=== PATIENT | female | born 1940 | race Caucasian/White ===

== ENCOUNTER 2024-04-19 14:54 | Observation (INO) | payer OTHER, SELFPAY ==
--- NOTE | ~2024-04-19 | XR_ITS ---
EXAMINATION: XR chest 1V portable Exam Date/Time: 04/19/2024 17:45 CDT HISTORY: weakness; eval for obvious PNA Comparison: 04/17/2008, 07/21/2007, 10/01/2006. RESULT: Lines, tubes, and devices: Suture material over the GE junction. Lungs and pleura: Low lung volumes. Skin fold projecting over the peripheral right lung. Right hemid iaphragm elevation. Lungs otherwise clear. Cardiomediastinal silhouette: Stable. Other: No acute upper abdominal finding. Right humeral head deformity, new since the prior studies. IMPRESSION: No acute cardiopulmonary process. Right humeral head deformity, possible acute versus chronic fractur e, correlate for pain/tenderness. Reviewed, dictated and finalized at location K. IMPRESSION: No acute cardiopulmonary process. Right humeral head deformity, possible acute versus chronic fracture, correlate for pain/tenderness.
--- NOTE | ~2024-04-19 | CT_ITS ---
EXAMINATION: CT brain wo con DATE: 04/19/2024 17:23 INDICATION: ROCKWELL and nausea . TECHNIQUE: Computed tomography (CT) of the head was performed without intravenous contrast. The mA wa s adjusted according to patient size. Iterative reconstruction technique was employed. The dose-lengt h product was 605.33 mGy-cm. COMPARISON: None. FINDINGS: No acute intracranial hemorrhage or extra-axial fluid collection. No hydrocephalus, mass, or herniation. No acute ischemic infarct. Unremarkable dural venous sinus attenuation. No acute osseous abnormality. The aerated spaces are clear. Mild atrophy and chronic white matter change. Atherosclerotic intracranial calcification. Bilateral l ens replacements. IMPRESSION: No acute intracranial process. Reviewed, dictated and finalized at location K.
[2024-04-19 14:55] VITALS: BP 140/86; PULSE 75; RESP 17; TEMP 36.6; O2SAT 99
--- NOTE | 2024-04-19 15:57 | ED.HA ---
HPI - Headache General Chief Complaint: Headache Stated Complaint: Nausea/ROCKWELL Time Seen by Provider: 04/19/24 15:34 Source: patient and family () Limitations: no limitations History of Present Illness HPI Narrative: Patient presents with complaint of a headache for >1week, at least since last Thursday but believed to be longer than that. Patient is also complaining of nausea and decreased p.o. intake. concerned as she has has not been eating and is quite weak. She normally walks with a cane but less ambulatory lately. Her headache is described as bilateral primarily frontal. She believes it is related to her sinuses as she has been having both rhinorrhea and nasal congestion and post-nasal drip. She does frequently get headaches at baseline and sees her primary care physician for this, has not seen a neurologist. She does have some associated photophobia. No trauma and not on anticoagulation other than 81 mg aspirin. Patient was recently being treated for a left leg cellulitis per . She states her headache pain 15 out of 10 in severity. She has been trialing Advil with no change. She presented to [facility] for her headache a few days and was given an IV; No imaging and not discharged on meds. Related Data Home Medications Medication Instructions Recorded Confirmed azelastine 137 mcg (0.1 %) nasal intranasal 04/19/24 spray cephalexin 500 mg capsule mg 04/19/24 doxycycline hyclate 100 mg capsule mg 04/19/24 ipratropium bromide 21 mcg (0.03 intranasal 04/19/24 %) nasal spray memantine 10 mg tablet mg 04/19/24 montelukast 10 mg tablet mg 04/19/24 omeprazole 20 mg capsule,delayed mg 04/19/24 release tramadol 50 mg tablet mg 04/19/24 trazodone 50 mg tablet mg 04/19/24 Allergies Allergy/AdvReac Type Severity Reaction Status Date / Time codeine Allergy Severe CHEST Verified 04/19/24 15:03 PAIN;DIFFICULTY BREATHING morphine Allergy Severe CHEST Verified 04/19/24 15:03 PAIN;DIFFICULTY BREATHING PMFSH Past Medical History Medical History (Updated 04/20/24 @ 00:00 by Mahsa Ashley MD) Allergic rhinitis Alzheimer dementia Fracture of humeral head, right, closed GERD (gastroesophageal reflux disease) History of fracture of right hip s/p surgical repair History of frequent headaches Insomnia Left leg cellulitis March 2024; s/p antibiotic treatment Myocardial infarction (~1979) Without intervention Osteoporosis Surgical History Surgical History (Updated 04/19/24 @ 22:43 by Manuela Meehan DO) History of appendectomy History of carpal tunnel release History of gastric bypass History of Bella fundoplication History of total abdominal hysterectomy and bilateral salpingo-oophorectomy Hx of cholecystectomy (~1964) Social History Social History (Updated 04/19/24 @ 19:30 by Mahsa Ashley MD) Alcohol intake: never Substance use: never Substance use type: does not use Do You Feel Safe in your Home?: Yes Lack of Transportation: No Lack of Food: Never True Current Housing: I Have Housing Concerned About Future Housing: No Difficulty Paying Gas/Electric Bills: No Difficulty Paying for Meds: No Currently Unemployed: No Education: High School Diploma/GED Difficulty w/ Childcare or Family Care: No Living arrangements: with family Additional living arrangements comments: Spiritual care concerns: No Exam Narrative: GENERAL: Well-appearing, well-nourished, and in no acute distress. HEAD: Normocephalic, atraumatic. EYES: Non injected, non icteric ENT: Nares clear, no rhinorrhea or epistaxis. NECK: Supple. CHEST: Speaking in full sentences. No respiratory distress. HEART: Regular rate and rhythm. ABDOMEN: Soft, nondistended. EXTREMITIES: Ecchymosis at upper third of right upper extremity. No tenderness to palpation of the humeral head. Demonstrates movement in all extremities. SKIN: Warm, dry, no ra
[2024-04-19] MEDS: KETOROLAC 15 MG/ML VIAL (*BKC) IV PUSH ×2 (16:20→18:10)
[2024-04-19] MEDS: SODIUM CHLORIDE 0.9% IV 1,000 ML 999 ML IV CONT (16:20)
[2024-04-19] MEDS: PROCHLORPERAZINE EDISYLATE 10 MG/2 ML VIAL IV PUSH (16:20)
[2024-04-19 16:58] LABS: Influenza A QL RT-PCR Negative (Negative); Influenza B QL RT-PCR Negative (Negative); RSV RNA, RT-PCR Negative (Negative); SARS-CoV-2 RNA PCR Negative (Negative)
[2024-04-19] MEDS: ACETAMINOPHEN 500 MG TABLET 1000 MG PO (18:04)
[2024-04-19] MEDS: MAGNESIUM SULF 1 GM/D5W 100 ML 1 GM/100 ML BAG IVPB (18:05)
[2024-04-19] MEDS: ONDANSETRON INJ 4 MG/2 ML VIAL IV PUSH (18:06)
[2024-04-19] MEDS: AMOXICILLIN/CLAVULANATE K 500-125 MG TAB 1 TABLET PO ×2 (18:10→23:30)
--- NOTE | 2024-04-19 18:30 | PC.NURSE ---
pt's voiced concerns to the RN about having a hard time caring for pt at home. pt states he would like to place her in some type of assisted living/nursing facility. called care coordination. states she will be down to speak with pt. ED provider aware.
[2024-04-19 18:36] VITALS: BP 127/69; PULSE 73; RESP 12; O2SAT 100
[2024-04-19 18:52] LABS: Basophils Percent Auto 0.9 % (0.2-1.2); Eosinophils Absolute Auto 0.1 K/mm3 (0-0.3); Eosinophils Percent Auto 1.1 % (0-4.4); Hematocrit 41.5 % (37.0-47.0); Hemoglobin 13.6 g/dL (12.0-15.0); Immature Granulocyte Absolute 0.01 K/mm3 (0.00-0.031); Immature Granulocyte Percent A 0.2 % (0-0.5); Lymphocytes Absolute Auto 2.03 K/mm3 (0.9-3.2); Lymphocytes Percent Auto 45.2 % (18.3-44.2); Mean Corpuscular HGB Conc 32.8 g/dl (32-36); Mean Corpuscular Hemoglobin 28.6 pg (26-34); Mean Corpuscular Volume 87.4 fl (80-100); Mean Platelet Volume 8.5 fl (7.4-10.4); Monocytes Absolute Auto 0.2 K/mm3 (0.1-0.6); Monocytes Percent Auto 4.7 % (2.6-8.5); Neutrophils Absolute Auto 2.2 K/mm3 (1.3-6.7); Neutrophils Percent Auto 47.9 % (45.5-73.1); Platelet Count Result 233 k/mm3 (150-375); Red Blood Count 4.75 M/mm3 (4.2-5.4); White Blood Count 4.5 K/mm3 (4.5-10.0)
[2024-04-19 18:53] LABS: Lactic Acid Reflex 0.8 mmol/L (0.7-2.0)
[2024-04-19 19:01] LABS: Alanine Aminotransferase 37 U/L (6-35); Albumin Level 3.2 g/dL (3.5-5.1); Alkaline Phosphatase 113 U/L (38-126); Anion Gap 8 mmol/L (4-12); Aspartate Amino Transferase 40 U/L (14-36); Bilirubin,Total 1.2 mg/dL (0.2-1.3); Blood Urea Nitrogen 14 mg/dL (7-17); Calcium 8.3 mg/dL (8.4-10.2); Carbon Dioxide 23 mmol/L (22-30); Chloride 103 mmol/L (98-107); Estimated CRCL calculation 35 ml/min; Estimated Glomerular Filt Rate 60; Glucose 81 mg/dL (65-110); Potassium 3.4 mmol/L (3.4-5.0); Sodium 134 mmol/L (137-145)
--- NOTE | 2024-04-19 19:01 | PCCCNOTE ---
CC called to the ED to speak with regarding potential placement. Pt has Alzheimer and he is having a difficult time getting her to eat and taking care of her. I gave him a list of SNF facilities for potential therapy to help build her strength. Pt was still being evaluated in the ED, unsure if pt will be admitted or discharged at this time, awaiting test results. Pt will be looking for [facility] eventually, but has to get finances in order first.
[2024-04-19 19:06] LABS: Appearance Urine Cloudy (Clear); Bacteria Urine None Seen /hpf; Bilirubin Urine Negative (Negative); Blood Urine Negative (Negative); Budding Yeast Urine Present /hpf; Color Urine Yellow (Yellow); Glucose Urine UA Negative (Negative); Ketones Urine 1+ mg/dL (Negative); Leukocyte Esterase Ur 2+ LEU/UL (Negative); Need Manual Microscopic Reviewed; Nitrate Urine Negative (Negative); Protein Urine Negative (Negative); RBC Urine 0-2 /hpf (0-2); Specific Grav Ur 1.015 (1.001-1.035); Squamous Epithelial Cell Urine Moderate /hpf (Few); WBC Urine >100 /hpf (0-3); pH Urine 6.5 (5.0-9.0)
[2024-04-19 19:07] LABS: Add Urine Microscopic? YES
[2024-04-19 21:20] VITALS: O2SAT 100
[2024-04-19 22:06] VITALS: BP 152/92; PULSE 73; RESP 16; TEMP 36.3; O2SAT 100
--- NOTE | 2024-04-19 22:30 | PM.IMHP ---
H&P: HPI History of Present Illness Date/Time: 04/19/24 22:30 Chief Complaint: Headache, nausea Narrative: 83-year-old female with a past medical history of dementia, GERD, allergic rhinitis and frequent headaches who presented to the ER via EMS from home due to headache and nausea for 1 week. The patient reports that she just does not feel good. She did not acknowledge any specific complaints until I went through point by point review of systems. With direct questioning she does state that she has a headache. She states that she has frequent headaches. She grimaces when she talks about the headache and states that it feels pretty bad but cannot give me any other details. She has been having nasal congestion and rhinorrhea. She denies any sore throat. She has been having poor appetite. She denied any abdominal pain but then on exam patient did report some tenderness to palpation of the lower quadrants. She reports that her mouth feels dry. Patient is not a reliable historian and is only alert oriented to self. She thought that she was at a hospital in [place]. She did not even want to make a guess as to the month or year. And she would not guess as to how old she is but could tell me her date. Her was concerned that she has not been eating has become weaker. She walks with a cane but has been having more difficulty. In the ER patient's required significant assistance to stand up from the chair. In fact, the patient has a gait belt on her bedside table that I suspect came from home use. The patient was evaluated in the [place] ER twice recently for left leg cellulitis. Patient is not having any complaints are legs issues at this time. The patient was treated with 7 days of Keflex starting 04/01/2024 and returning got secondary antibiotics with doxycycline 04/04/2024 for 10 day course. She completed her antibiotic treatment. High majority of the history and physical is obtained from ER physician report, review of external medications refill record from pharmacies, and history and physical from the archived system 2006. Patient herself is alert oriented only to person. Nursing staff did try to contact the patient's family members but both contact phone numbers within the computer were not working numbers. Review of Systems Review of Systems: Review of systems limited due to patient's dementia but pertinent positives and negatives (although reliability in question) listed above PMFSH Past Medical History Medical History (Updated 04/20/24 @ 07:58 by Manuela Meehan DO) Allergic rhinitis Alzheimer dementia Fracture of humeral head, right, closed Chronic from a fall in 2020 GERD (gastroesophageal reflux disease) History of frequent headaches Insomnia Left leg cellulitis March 2024; s/p antibiotic treatment Myocardial infarction (~1979) Without intervention Osteoporosis Surgical History Surgical History (Updated 04/20/24 @ 06:22 by Manuela Meehan DO) History of appendectomy History of carpal tunnel release History of gastric bypass History of Bella fundoplication History of total abdominal hysterectomy and bilateral salpingo-oophorectomy Hx of cholecystectomy (~1964) Status post cataract extraction of both eyes with insertion of intraocular lens Status post open reduction with internal fixation of fracture Right hip fracture Family History Family History (Updated 04/20/24 @ 06:24 by Manuela Meehan DO) Father Acute myocardial infarction COPD (chronic obstructive pulmonary disease) Mother Heart disease Diabetes mellitus Breast cancer Social History Social History (Updated 04/20/24 @ 06:20 by Manuela Meehan DO) Social History: The patient lives at home with her . They had a daughter and a son. 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 She used to smoke. She thinks that she smoked for maybe 15 years but she is unsure.
[2024-04-20] MEDS: SODIUM CHLORIDE 0.9% IV 1,000 ML 125 ML IV CONT (03:00)
[2024-04-20 05:30] VITALS: BP 139/77; PULSE 67; RESP 14; TEMP 36.3; O2SAT 99
[2024-04-20] MEDS: AMOXICILLIN/CLAVULANATE K 500-125 MG TAB 1 TABLET PO ×2 (06:22→13:59)
[2024-04-20 07:39] LABS: Alanine Aminotransferase 28 U/L (6-35); Albumin Level 2.7 g/dL (3.5-5.1); Alkaline Phosphatase 105 U/L (38-126); Anion Gap 9 mmol/L (4-12); Aspartate Amino Transferase 31 U/L (14-36); Bilirubin,Total 0.6 mg/dL (0.2-1.3); Blood Urea Nitrogen 13 mg/dL (7-17); Calcium 7.9 mg/dL (8.4-10.2); Carbon Dioxide 20 mmol/L (22-30); Chloride 106 mmol/L (98-107); Estimated CRCL calculation 35 ml/min; Estimated Glomerular Filt Rate 60; Glucose 69 mg/dL (65-110); Potassium 3.4 mmol/L (3.4-5.0); Sodium 135 mmol/L (137-145)
[2024-04-20 08:43] LABS: Folic Acid 4.6 ng/mL (2.76->20); Vitamin B12 > 1000.0 pg/mL (239-931)
[2024-04-20 08:50] LABS: Basophils Absolute Auto 0.1 K/mm3 (0.0-0.1); Eosinophils Absolute Auto 0.1 K/mm3 (0-0.3); Eosinophils Percent Auto 1.4 % (0-4.4); Hematocrit 44.2 % (37.0-47.0); Hemoglobin 13.3 g/dL (12.0-15.0); Immature Granulocyte Absolute 0.02 K/mm3 (0.00-0.031); Immature Granulocyte Percent A 0.4 % (0-0.5); Lymphocytes Absolute Auto 1.76 K/mm3 (0.9-3.2); Lymphocytes Percent Auto 36.2 % (18.3-44.2); Mean Corpuscular HGB Conc 30.1 g/dl (32-36); Mean Corpuscular Hemoglobin 29.3 pg (26-34); Mean Corpuscular Volume 97.4 fl (80-100); Mean Platelet Volume 8.7 fl (7.4-10.4); Monocytes Absolute Auto 0.3 K/mm3 (0.1-0.6); Monocytes Percent Auto 5.1 % (2.6-8.5); Neutrophils Absolute Auto 2.7 K/mm3 (1.3-6.7); Neutrophils Percent Auto 55.9 % (45.5-73.1); Platelet Count Result 220 k/mm3 (150-375); Red Blood Count 4.54 M/mm3 (4.2-5.4); Red Cell Distribution Width 17.7 % (11.5-14.5); White Blood Count 4.9 K/mm3 (4.5-10.0)
[2024-04-20 08:51] VITALS: O2SAT 95
[2024-04-20] MEDS: LORATADINE 10 MG TABLET PO (09:21)
[2024-04-20] MEDS: ENOXAPARIN 40 MG/0.4 ML SYRINGE SUB-Q (09:22)
[2024-04-20 14:00] VITALS: BP 124/76; PULSE 91; RESP 15; TEMP 36.1; O2SAT 100
--- NOTE | 2024-04-20 16:19 | PM.IMPN ---
Progress Note: A&P Assessment and Plan (1) Acute UTI: Code(s): N39.0 - Urinary tract infection, site not specified Status: Acute Assessment and Plan: 04/20/24: UA showing 1+ urine ketone, 2+ leukocyte, greater than 100 urine WBC, urine yeast present Urine and blood cultures obtained and are pending Start Rocephin (2) Mild dehydration: Code(s): E86.0 - Dehydration Status: Acute Assessment and Plan: 04/20/24: Patient was given fluids while in the ED Likely secondary to acute UTI versus Alzheimer's dementia (3) Generalized weakness: Code(s): R53.1 - Weakness Status: Acute Assessment and Plan: 04/20/24: PT and OT ordered for (4) Transaminitis: Code(s): R74.01 - Elevation of levels of liver transaminase levels Status: Acute Assessment and Plan: 04/20/24: AST 40, ALT 37 on admission now back down to baseline (5) Hypoalbuminemia: Code(s): E88.09 - Other disorders of plasma-protein metabolism, not elsewhere classified Status: Acute Assessment and Plan: 04/20/24: Albumin 2.7 (6) Alzheimer dementia: Qualifiers: Alzheimer's disease onset: late onset Dementia severity: severe Dementia behavioral or psychological symptom: without behavioral, psychotic, or mood disturbance or anxiety Qualified Code(s): G30.1 - Alzheimer's disease with late onset; F02.C0 - Dementia in other diseases classified elsewhere, severe, without behavioral disturbance, psychotic disturbance, mood disturbance, and anxiety Code(s): G30.9 - Alzheimer's disease, unspecified; F02.80 - Dementia in other diseases classified elsewhere, unspecified severity, without behavioral disturbance, psychotic disturbance, mood disturbance, and anxiety Status: Acute Assessment and Plan: 04/20/24: Continue Namenda Time Spent With Patient Time with patient: 25 - 35 minutes Subjective Date/time seen: 04/20/24 16:19 Interval history: Interval history: This is an 83-year-old female presented to the hospital on 04/19/2024 with complaints of nausea. Workup in the hospital included a CT of the head which was negative for any acute intracranial process. Chest x-ray was negative for any acute cardiopulmonary process, right humeral head deformity possibly acute versus chronic fracture. Initial labs showed a normal white blood cell count of 4.5, sodium 134, AST 40, ALT 37. UA was obtained which shown 1+ urine ketone, 2+ leukocytes, greater than 100 urine WBC, urine yeast present. Respiratory panel was negative for influenza a and B, RSV, COVID. Urine and blood cultures were obtained and are pending. Patient was started on Augmentin while in the ED however we switch this over to Rocephin. 04/20/24: Patient reports dizziness, blurred vision, and nausea today. She denies any fever, chills, diarrhea, abdominal pain, chest pain, shortness of breath. Review of Systems Review of Systems: ROS unobtainable: Yes unobtainable due to mental status Exam Narrative: General: In no acute distress, well nourished Head: atraumatic, no encephalopathy Eyes: EOMI, PERRLA, sclera clear ENT: moist mucous membranes, nasal passages clear Neck: supple, no JVD, no adenopathy, trachea midline Cardiac: Normal S1 and S2. RRR, No murmur, gallops or friction rubs, peripheral pulses intact. Respiratory: Lungs clear to auscultation, no adventitious lung sounds, currently room air Gastrointestinal: soft, non-distended, non-tender, normoactive bowel sounds. : voiding without difficulty. Extremities: moves all extremities well, no edema, good ROM Skin: clean, dry, intact. No wounds or lesions. Neuro: Alert and confused, reports blurred vision and headache, no neuro deficits. Psych: Confused, interactive tearful at times Objective Data Vital Signs Vital Signs: Vital Signs - 24 hr 04/19/24 18:36 04/19/24 22:06 04/19/24 21:20 Temperature 97.4 F L Pulse Rate 73 73
[2024-04-20 20:59] VITALS: BP 136/85; PULSE 83; RESP 18; TEMP 36.4; O2SAT 99
[2024-04-20] MEDS: traZODone HCL 50 MG TABLET PO (21:07)
[2024-04-20] MEDS: MONTELUKAST SODIUM 10 MG TABLET PO (21:07)
[2024-04-21 06:00] VITALS: BP 126/82; PULSE 82; RESP 18; TEMP 36.3; O2SAT 99
[2024-04-21 08:38] LABS: Basophils Absolute Auto 0.1 K/mm3 (0.0-0.1); Basophils Percent Auto 1.2 % (0.2-1.2); Eosinophils Absolute Auto 0.1 K/mm3 (0-0.3); Eosinophils Percent Auto 1.6 % (0-4.4); Hematocrit 41.2 % (37.0-47.0); Hemoglobin 13.4 g/dL (12.0-15.0); Immature Granulocyte Absolute 0.03 K/mm3 (0.00-0.031); Immature Granulocyte Percent A 0.7 % (0-0.5); Lymphocytes Absolute Auto 1.91 K/mm3 (0.9-3.2); Lymphocytes Percent Auto 44.8 % (18.3-44.2); Mean Corpuscular HGB Conc 32.5 g/dl (32-36); Mean Corpuscular Hemoglobin 29.1 pg (26-34); Mean Corpuscular Volume 89.4 fl (80-100); Mean Platelet Volume 8.5 fl (7.4-10.4); Monocytes Absolute Auto 0.2 K/mm3 (0.1-0.6); Monocytes Percent Auto 5.4 % (2.6-8.5); Neutrophils Percent Auto 46.3 % (45.5-73.1); Platelet Count Result 222 k/mm3 (150-375); Red Blood Count 4.61 M/mm3 (4.2-5.4); Red Cell Distribution Width 17.3 % (11.5-14.5); White Blood Count 4.3 K/mm3 (4.5-10.0)
[2024-04-21 08:48] LABS: Alanine Aminotransferase 32 U/L (6-35); Alkaline Phosphatase 103 U/L (38-126); Anion Gap 7 mmol/L (4-12); Aspartate Amino Transferase 29 U/L (14-36); Bilirubin,Total 0.5 mg/dL (0.2-1.3); Blood Urea Nitrogen 9 mg/dL (7-17); Calcium 8.4 mg/dL (8.4-10.2); Carbon Dioxide 24 mmol/L (22-30); Chloride 103 mmol/L (98-107); Estimated CRCL calculation 39 ml/min; Estimated Glomerular Filt Rate > 60; Glucose 80 mg/dL (65-110); Potassium 3.1 mmol/L (3.4-5.0); Sodium 134 mmol/L (137-145)
[2024-04-21] MEDS: MEMANTINE 10 MG TABLET PO (09:21)
[2024-04-21] MEDS: IPRATROPIUM NASAL SPRAY 0.03% 15 ML BOTTLE 2 SPRAY NASAL (09:21)
[2024-04-21] MEDS: AZELASTINE HCL NASAL 0.1% 137 MCG/SPR 30 ML BTL 2 SPRAY NASAL (09:21)
[2024-04-21] MEDS: PANTOPRAZOLE 40 MG TABLET PO (09:21)
[2024-04-21] MEDS: LORATADINE 10 MG TABLET PO (09:21)
[2024-04-21] MEDS: ENOXAPARIN 40 MG/0.4 ML SYRINGE SUB-Q (09:27)
--- NOTE | 2024-04-21 11:40 | PM.DS ---
DS: Admitting Diagnosis Discharge Date 04/21/24 Admitting Diagnosis Sinusitis Mild dehydration Generalized Transaminitis Hypoalbuminemia Pyuria Alzheimer's dementia DS: Discharge Diagnosis Discharge Diagnosis (1) Acute UTI: Code(s): N39.0 - Urinary tract infection, site not specified Status: Acute (2) Mild dehydration: Code(s): E86.0 - Dehydration Status: Acute (3) Generalized weakness: Code(s): R53.1 - Weakness Status: Acute (4) Transaminitis: Code(s): R74.01 - Elevation of levels of liver transaminase levels Status: Acute (5) Hypoalbuminemia: Code(s): E88.09 - Other disorders of plasma-protein metabolism, not elsewhere classified Status: Acute (6) Alzheimer dementia: Qualifiers: Alzheimer's disease onset: late onset Dementia severity: severe Dementia behavioral or psychological symptom: without behavioral, psychotic, or mood disturbance or anxiety Qualified Code(s): G30.1 - Alzheimer's disease with late onset; F02.C0 - Dementia in other diseases classified elsewhere, severe, without behavioral disturbance, psychotic disturbance, mood disturbance, and anxiety Code(s): G30.9 - Alzheimer's disease, unspecified; F02.80 - Dementia in other diseases classified elsewhere, unspecified severity, without behavioral disturbance, psychotic disturbance, mood disturbance, and anxiety Status: Acute DS: Summary Hospital Course Reason for hospitalization: Sinusitis Mild dehydration Generalized Transaminitis Hypoalbuminemia Pyuria Alzheimer's dementia Hospital Course: This is an 83-year-old female presented to the hospital on 04/19/2024 with complaints of nausea. Workup in the hospital included a CT of the head which was negative for any acute intracranial process. Chest x-ray was negative for any acute cardiopulmonary process, right humeral head deformity possibly acute versus chronic fracture. Initial labs showed a normal white blood cell count of 4.5, sodium 134, AST 40, ALT 37. UA was obtained which shown 1+ urine ketone, 2+ leukocytes, greater than 100 urine WBC, urine yeast present. Respiratory panel was negative for influenza a and B, RSV, COVID. Urine and blood cultures were obtained and are pending. Patient was started on Augmentin while in the ED however we switch this over to Rocephin. Urine culture was negative on final read. Blood cultures showing growth today preliminary read. She is stable for discharge at this time. She will need to follow up with primary care physician in 1 week. Final diagnosis: Dehydration, transaminitis, generalized weakness Status at Discharge Cognitive/behavioral status at discharge: Alert oriented x4 Functional status at discharge: uses cane/walker Overall status at discharge: patient is progressing back to baseline Time Spent with Patient Time attestation: Total time spent providing and/or coordinating discharge services: Exam Narrative: General: In no acute distress, well nourished Cardiac: Normal S1 and S2. RRR, No murmur, gallops or friction rubs, peripheral pulses intact. Respiratory: Lungs clear to auscultation, no adventitious lung sounds, currently room air Gastrointestinal: soft, non-distended, non-tender, normoactive bowel sounds. : voiding without difficulty. Neuro: Alert and oriented x3 DS: Data Data Completed and Pending Completed studies during hospitalization: Chest x-ray Head CT Pending studies at discharge: Blood cultures Labs on day of discharge: Labs from last 24 hours 04/21/24 08:28 WBC 4.3 L RBC 4.61 Hgb 13.4 Hct 41.2 MCV 89.4 D MCH 29.1 MCHC 32.5 RDW 17.3 H Plt Count 222 MPV 8.5 Immature Gran % (Auto) 0.7 H Neut % (Auto) 46.3 Lymph % (Auto) 44.8 H [place] % (Auto) 5.4 Eos % (Auto) 1.6 Baso % (Auto) 1.2 Lymph # (Auto) 1.91 [place] # (Auto) 0.2 Eos # (Auto) 0.1 Baso # (Auto) 0.1 Abs Immat Gran (auto) 0.03 Absolute Neuts (
== END 2024-04-21 12:20 | disposition home health service (06) ==
LOC: ANHED 16:12 → ANH3MEDSUR 04-20 07:14
PROVIDERS: Nurse Practitioner Acute Care; Admitting Provider Internal Medicine; Emergency Provider Student in an Organized Health Care Education/Training Program; PCP Nurse Practitioner Family; Visit Provider Internal Medicine
DX: N39.0 Urinary tract infection, site not specified (principal); J01.10 Acute frontal sinusitis, unspecified; E86.0 Dehydration; R74.01 Elevation of levels of liver transaminase levels; E88.09 Other disorders of plasma-protein metabolism, not elsewhere classified; G30.1 Alzheimer's disease with late onset; F02.C0 Dementia in other diseases classified elsewhere, severe, without behavioral disturbance, psychotic disturbance, mood disturbance, and anxiety; K21.9 Gastro-esophageal reflux disease without esophagitis; M81.0 Age-related osteoporosis without current pathological fracture; I25.2 Old myocardial infarction; R53.1 Weakness; Z87.891 Personal history of nicotine dependence; Z20.822 Contact with and (suspected) exposure to COVID-19
CPT/HCPCS: 36415; 70450; 71045; 80053; 81001; 82607; 82746; 83605; 85025; 87040; 87086; 87088; 87637; 96361; 96365; 96372; 96375; 97161; 97165; 99285; A9270; G0378; J0696; J0780; J1650; J1885; J2405; J3475; J7030

== ENCOUNTER 2024-05-26 02:24 | Inpatient (IN) | payer OTHER, SELFPAY ==
[2024-05-26] VITALS (62 sets, daily range): BP systolic 100–207; BP diastolic 55–104; PULSE 75–115; RESP 11–31; TEMP 36.2–37.1; O2SAT 88–100; BMI 25.7
--- NOTE | 2024-05-26 | ECHO_ITS ---
Patient Info Name: Deann Byrd Age: 84 years : 1940 Gender: Female Ht: 64 in Wt: 150 lbs BSA: 1.77 m2 HR: 77 bpm BP: 119 / 57 mmHg Heart Rhythm: Sinus Rhythm Technical Quality: Poor Exam Date: 05/26/2024 4:05 PM Exam Location: Echo Lab Patient Status: Inpatient Admit Date: 05/26/2024 Staff Ordering Physician: Ayush Sun MD Retail Store Clerk: Jose R Reaves RDCS Attending Provider: Ayush Sun MD Exam Type: CA echo doppler color flow Study Info Indications - Pedal Edema Complete two-dimensional, color flow and Doppler transthoracic echocardiogram is performed. Reason for Poor Study: poor patient cooperation Summary 1. Complete two-dimensional, color flow and Doppler transthoracic echocardiogram is performed. 2. Normal left ventricular size with hyperdynamic appearing systolic contractility. 3. Grade 1 diastolic noncompliance. 4. No valvular dysfunction. Left Ventricle Left ventricular chamber dimension is normal. Left ventricular systolic function is hyperdynamic, estimated at >70%. The left ventricular diastolic function is grade I diastolic dysfunction. Right Ventricle Right ventricular chamber dimension is normal. Left Atria Left atrial chamber dimension is normal. Right Atria Right atrial chamber dimension is normal. Aortic Valve The aortic valve is normal. Pulmonic Valve The pulmonic valve is normal. Mitral Valve The mitral valve has normal leaflets. Tricuspid Valve The tricuspid valve leaflets are normal. Pericardium/Pleural The pericardium appears normal. Aorta The aortic root size at the sinus of Valsalva is normal. Left Ventricular Outflow Tract Name Value Normal LVOT 2D LVOT Diameter 2.0 cm LVOT Doppler LVOT Peak Gradient 5 mmHg LVOT Mean Gradient 2 mmHg LVOT VTI 17 cm LVOT VTI/AV VTI Ratio 1.6 LVOT Stroke Volume 54 ml LVOT CO 12.8 l/min LVOT CI 7.3 l/min/m2 Pulmonic Valve Name Value Normal PV Doppler PV Peak Gradient 3 mmHg Mitral Valve Name Value Normal MV Doppler MV Decel George 280 cm/s2 MV PHT 45 ms MV Area (PHT) 4.9 cm2 4.0-5.0 MV Diastolic Function MV E Peak Velocity 44 cm/s MV A Peak Velocity 89 cm/s MV E/A 0.5 MV Decel Time
--- NOTE | ~2024-05-26 | XR_ITS ---
XR chest 1V portable 05/27/2024 10:05 Indication: Chest pain Procedure: AP portable chest Comparison: Comparison to multiple prior studies sequentially, with oldest reviewed study dated 04/17. Findings: Elevated right diaphragm. There is hiatal hernia. Cardiomegaly. Chronic right upper lobe at electasis/scarring. No acute focal pneumonia, edema, pleural effusion or pneumothorax. Impression: 1: No acute cardiopulmonary disease. Reviewed, dictated and finalized at location B. Impression: 1: No acute cardiopulmonary disease.
--- NOTE | ~2024-05-26 | CT_ITS ---
EXAMINATION: CTA chest abdomen pelvis DATE: 05/27/2024 13:32 INDICATION: Chest pain. Hypertension. TECHNIQUE: Computed tomographic angiography (CTA) of the chest, abdomen, and pelvis was performed wit h 100 mL Omnipaque-350 intravenous contrast. Automated exposure control and iterative reconstruction technique were employed. The dose-length product was 336.63 mGy-cm. Maximum intensity projection 3D-r econstructions of the aorta and other arteries were constructed by the technologist on a separate wor kstation. COMPARISON: Chest single view 05/27/2024 FINDINGS: CHEST CTA: The lungs demonstrate mild atelectasis. A calcified left lung nodule and calcified left hilar lymph n odes are consistent with old granulomatous disease. There are small pleural effusions. The heart size is normal. There are coronary artery calcifications. There is a trace pericardial effusion. Aortic a therosclerosis is noted. No aneurysm or dissection. There is no pulmonary embolus. There is severe th oracic spondylosis. There is mild chronic anterior wedging of multiple vertebral bodies. ABDOMEN AND PELVIS CTA: The liver and spleen are normal. The gallbladder is absent. The pancreas and adrenal glands are harinder l. There is cortical thinning of the kidneys. There are cysts in the kidneys measuring up to 14 mm on the left. There are changes of gastric bypass procedure. There is a small sliding hernia. There is d iverticulosis of the colon without evidence of diverticulitis. The appendix is not visualized. There are no pathologically enlarged lymph nodes. There is no ascites. Aortic atherosclerosis is noted. The re is no significant stenosis of celiac axis. There is moderate stenosis of superior mesenteric arter y. There is no significant stenosis of the renal arteries or inferior mesenteric artery. There is int ernal fixation of proximal right femur. There is mild lumbar spondylosis. IMPRESSION: 1. Aortic atherosclerosis. No aneurysm or dissection. 2. Small pleural effusions. 3. Small sliding hiatal hernia. Gastric bypass procedure. Reviewed, dictated and finalized at location A.
--- NOTE | ~2024-05-26 | XR_ITS ---
AP and lateral views of the left tibia/fibula Clinical History: Pain Findings: No acute fracture or dislocation is seen. Osseous alignment is anatomic. Joint spaces are p reserved without significant erosive or degenerative change. Possible wound at the anterior aspect of the midcalf. Impression: No fracture or dislocation. Possible soft tissue wound or laceration at the anterior aspect of the midcalf. Correlate with physic al exam. Reviewed, dictated and finalized at location M. Impression: No fracture or dislocation. Possible soft tissue wound or laceration at the anterior aspect of the midcalf. Correlate with physical exam.
--- NOTE | ~2024-05-26 | US_ITS ---
EXAMINATION: US venous doppler [facility] DATE: 05/26/2024 09:45 INDICATION: Left lower limb pain, swelling and erythema. TECHNIQUE: Grayscale ultrasound images without and with compression and Doppler ultrasound images of the left lower extremity veins were obtained. COMPARISON: None. FINDINGS: The visualized portions of left common femoral vein, profunda (deep) femoral vein, femoral vein, popl iteal vein, peroneal veins, posterior tibial veins, gastrocnemius vein and proximal to mid greater sa phenous vein are patent. IMPRESSION: 1. No deep venous thrombosis in the left lower limb. Reviewed, dictated and finalized at location A.
--- NOTE | ~2024-05-26 | US_ITS ---
EXAMINATION:US venous doppler LE RT INDICATION:Right leg edema TECHNIQUE: Multiple grayscale, color flow and Doppler images of the right lower extremity deep venous systems were obtained and reviewed. COMPARISON:No prior studies for comparison. FINDINGS: The common femoral, superficial femoral and popliteal veins demonstrate normal respiratory variation, augmentation and compressibility. Color flow is also seen within the posterior tibial, pe roneal, greater saphenous and profunda veins. IMPRESSION: 1: No lower extremity deep venous thrombosis. Reviewed, dictated and finalized at location B.
--- NOTE | ~2024-05-26 | XR_ITS ---
Portable chest x-ray Comparison: 04/19/2024 Clinical History: Weakness Findings: There is a vague hazy opacity right midlung. Left lung clear. Cardiomediastinal silhouett e is stable. Bones and soft tissues are unremarkable. Impression: Vague hazy right midlung airspace opacity. Correlate for focal pneumonia. Reviewed, dictated and finalized at location . Impression: Vague hazy right midlung airspace opacity. Correlate for focal pneumonia.
--- NOTE | 2024-05-26 02:32 | ECG_ITS ---
Test Date: 2024-05-26 02:30:53 Measurements Intervals [place] Rate: 83 P: 79 UT: 143 QRS: -60 QRSD: 110 T: 22 QT: 361 QTc: 426 Interpretive Statements SINUS RHYTHM PATTERN CONSISTENT WITH PULMONARY DISEASE LEFT ANTERIOR FASCICULAR BLOCK [QRS AXIS <= -45, QR IN I, RS IN II] POOR R-WAVE PROGRESSION ABNORMAL ECG No previous ECG available for comparison Electronically Signed On 05-26-2024 13:20:01 CDT by Abdiaziz Richardson M.D.
--- NOTE | 2024-05-26 03:12 | ED.EXTPRO ---
HPI - Extremity Problem General Chief complaint: Extremity Problem,Nontraumatic <Delores Enciso MD - Last Filed: 05/26/24 07:03> Stated complaint: BLE swelling x 2 weeks <Delores Enciso MD - Last Filed: 05/26/24 07:03> Time Seen by Provider: 05/26/24 02:35 <Delores Enciso MD - Last Filed: 05/26/24 07:03> History of Present Illness HPI Narrative: Patient is an 84-year-old female who presents to the emergency department this evening accompanied by her complaining left lower leg cellulitis. Patient has a history of dementia and called EMS for her leg pain and did not realize that she called EMS for this but wanted her evaluated for this anyways because patient finished a course of antibiotic for this wound approximately 1-2 weeks ago and he believes that the area still appears to be cellulitic. Patient is currently being managed for this wound in her left malhotra region by home healthcare wound nurse who is coming to evaluate the wound today. When asked if she took anything for the pain, patient states she did not. also states that the patient has been peeing a lot and wants her evaluated for UTI. <Delores Enciso MD - Last Filed: 05/26/24 07:03> Related Data Home medications: Home Medications Medication Instructions Recorded Confirmed ipratropium bromide 21 mcg (0.03 2 spray intranasal BID 04/19/24 05/26/24 %) nasal spray memantine 10 mg tablet 10 mg PO DAILY 04/19/24 05/26/24 montelukast 10 mg tablet 10 mg PO QHS 04/19/24 05/26/24 omeprazole 20 mg capsule,delayed 20 mg PO DAILY 04/19/24 05/26/24 release trazodone 50 mg tablet 50 mg PO QHS 04/19/24 05/26/24 azelastine 137 mcg (0.1 %) nasal 2 spray intranasal DAILY 04/20/24 05/26/24 spray loratadine 10 mg tablet 10 mg PO DAILY 04/20/24 05/26/24 <Delores Enciso MD - Last Filed: 05/26/24 07:03> Allergies/Adverse reactions: Allergies Allergy/AdvReac Type Severity Reaction Status Date / Time codeine Allergy Severe CHEST Verified 04/19/24 15:03 PAIN;DIFFICULTY BREATHING morphine Allergy Severe CHEST Verified 04/19/24 15:03 PAIN;DIFFICULTY BREATHING <Delores Enciso MD - Last Filed: 05/26/24 07:03> Review of Systems Review of Systems: All systems are reviewed and are negative unless stated otherwise in the HPI. <Delores Enciso MD - Last Filed: 05/26/24 07:03> PMFSH Past Medical History Medical History: Medical History Allergic rhinitis Alzheimer dementia Fracture of humeral head, right, closed Chronic from a fall in 2020 GERD (gastroesophageal reflux disease) History of frequent headaches Insomnia Left leg cellulitis March 2024; s/p antibiotic treatment Myocardial infarction (~1979) Without intervention Osteoporosis <Delores Enciso MD - Last Filed: 05/26/24 07:03> Surgical History Surgical History: Surgical History History of appendectomy History of carpal tunnel release History of gastric bypass History of Bella fundoplication History of total abdominal hysterectomy and bilateral salpingo-oophorectomy Hx of cholecystectomy (~1964) Status post cataract extraction of both eyes with insertion of intraocular lens Status post open reduction with internal fixation of fracture Right hip fracture <Delores Enciso MD - Last Filed: 05/26/24 07:03> Family History Family History: Family History Father Acute myocardial infarction COPD (chronic obstructive pulmonary disease) Mother Heart disease Diabetes mellitus Breast cancer <Delores Enciso MD - Last Filed: 05/26/24 07:03> Social History Social History: Social History Social History: The patient lives at home with her . They had a daug
[2024-05-26 03:38] LABS: Add Urine Microscopic? YES; Appearance Urine Clear (Clear); Bacteria Urine Rare /hpf; Bilirubin Urine Negative (Negative); Blood Urine Negative (Negative); Color Urine Yellow (Yellow); Glucose Urine UA Negative (Negative); Ketones Urine Negative (Negative); Leukocyte Esterase Ur 1+ LEU/UL (Negative); Need Manual Microscopic Reviewed; Nitrate Urine Negative (Negative); Non Pathogenic Casts 0-2; Protein Urine Negative (Negative); RBC Urine 0-2 /hpf (0-2); Specific Grav Ur 1.008 (1.001-1.035); Squamous Epithelial Cell Urine None Seen /hpf (Few); WBC Urine 0-5 /hpf (0-3); pH Urine 7.5 (5.0-9.0)
[2024-05-26] MEDS: IBUPROFEN 400 MG TABLET PO (05:29)
[2024-05-26] MEDS: levoFLOXacin 750 MG/D5W 150 ML 750 MG/150 ML BAG 100 MG IVPB (07:43)
[2024-05-26 08:01] LABS: Basophils Percent Auto 0.2 % (0.2-1.2); Hematocrit 34.7 % (37.0-47.0); Immature Granulocyte Absolute 0.03 K/mm3 (0.00-0.031); Immature Granulocyte Percent A 0.4 % (0-0.5); Lymphocytes Absolute Auto 0.82 K/mm3 (0.9-3.2); Lymphocytes Percent Auto 9.9 % (18.3-44.2); Mean Corpuscular HGB Conc 31.7 g/dl (32-36); Mean Corpuscular Hemoglobin 28.6 pg (26-34); Mean Corpuscular Volume 90.1 fl (80-100); Mean Platelet Volume 8.3 fl (7.4-10.4); Monocytes Absolute Auto 0.6 K/mm3 (0.1-0.6); Monocytes Percent Auto 7.4 % (2.6-8.5); Neutrophils Absolute Auto 6.8 K/mm3 (1.3-6.7); Neutrophils Percent Auto 82.1 % (45.5-73.1); Platelet Count Result 276 k/mm3 (150-375); Red Blood Count 3.85 M/mm3 (4.2-5.4); Red Cell Distribution Width 17.3 % (11.5-14.5); White Blood Count 8.3 K/mm3 (4.5-10.0)
[2024-05-26 08:17] LABS: Lactic Acid Reflex 1.8 mmol/L (0.7-2.0)
[2024-05-26 08:20] LABS: Alanine Aminotransferase 18 U/L (6-35); Albumin Level 2.8 g/dL (3.5-5.1); Alkaline Phosphatase 80 U/L (38-126); Anion Gap 6 mmol/L (4-12); Aspartate Amino Transferase 20 U/L (14-36); Bilirubin,Total 0.9 mg/dL (0.2-1.3); Blood Urea Nitrogen 17 mg/dL (7-17); Calcium 8.3 mg/dL (8.4-10.2); Carbon Dioxide 28 mmol/L (22-30); Chloride 97 mmol/L (98-107); Estimated CRCL calculation 45 ml/min; Estimated Glomerular Filt Rate > 60; Glucose 79 mg/dL (65-110); Potassium 3.2 mmol/L (3.4-5.0); Sodium 131 mmol/L (137-145)
--- NOTE | 2024-05-26 08:31 | PC.NURSE ---
Regular breakfast tray ordered
[2024-05-26 08:38] LABS: Erythrocyte Sedimentation Rate 11 mm/hr (0-20)
[2024-05-26] MEDS: VANCOMYCIN 1,750 MG/NS 500 ML 1,750 MG/500 ML BAG 250 MG IVPB (09:51)
--- NOTE | 2024-05-26 10:45 | PC.NURSE ---
This patient, Deann Byrd, was admitted to [facility] Surg Room 304-02. Patient/family oriented to hospital policies and general routines including ID bracelet, bed and alarms, visiting hours, pain management, procedures, bathroom and other care routines, personal items, smoking policy, room service/diet, and visiting hours. Information on how to activate the Rapid Response Team has been discussed. Patient/Family are encouraged to report perceived risks to care and to ask questions if they do not understand what they are told or what they should do.
--- NOTE | 2024-05-26 11:01 | PC.NURSE ---
RN completed admission to the best of her abilities given patient has history of dementia. RN also completed the medication reconciliation via external medication history due to patient having history of dementia.
--- NOTE | 2024-05-26 11:43 | PM.IMHP ---
H&P: HPI History of Present Illness Date/Time: 05/26/24 11:43 Chief Complaint: Bilateral LE swelling Narrative: 84yo female with dementia, CAD/KS and hx of LLE cellulitis here for bilateral lower extremity cellulitis. Patient is alert but confused and thus unable to provide an accurate history. She complains of sinus drainage and polyurea. She denies dysuria or hematuria. She feels short of breath but denies chest pain or cough. She cannot provide details regarding the symptoms. According to the chart, patient was hospitalized here in the latter part of March for nausea. Workup was unrevealing. She was on antibiotics for possible UTI but urine culture was negative. She was not discharged home on antibiotics. More recently patient was evaluated for a left lower extremity wound and finished a course of antibiotics about 1-2 weeks ago. She also has had increasing leg edema bilaterally for the past 1-2 weeks. Patient is being managed for her wound/cellulitis by entry level civil engineer at home through home health. Patient called EMS although her did not realize that she did so. Patient was brought to the emergency room for evaluation. In the emergency room, blood pressure was elevated at 207/93. She does not have HTN. She was occasionally tachycardic but no fevers. CBC was normal except for hemoglobin of 11. This is lower than baseline. Sodium was 131 with a potassium of 3.2. Protein was 5 with albumin of 2.8. Urinalysis showed 1+ leukocyte esterase otherwise negative; negative for protein. MRSA nasal swab PCR was negative. Chest x-ray shows vague hazy right mid lung airspace opacity. Left tibia and fibula x-ray showed no dislocation. Possible soft tissue wound or laceration at the anterior aspect of the mid calf. Lower extremity venous Doppler of the left leg showed no DVT. ESR and CRP levels were normal. EKG showing NSR, incomplete Rt BBB, LAFB and possible old septal KS. She was given Motrin and started on Levaquin and vancomycin. She was admitted for further care. Discussed with . noted the pedal edema for a few weeks. She completed abx 05/22. Left leg wound noted 05/09 but does not know how it happened. He states the patient's dementia is worsening with her calling the police, EMS. He is wanting to put her in a long-term. She also gets PNA frequently but not had a swallow study yet (Scheduled for Jun). She eats well. She drinks Pepsi (12 16oz bottles per week). Review of Systems Review of Systems: All systems reviewed & are unremarkable except as noted in HPI and below PMFSH Past Medical History Medical History Allergic rhinitis Alzheimer dementia Fracture of humeral head, right, closed Chronic from a fall in 2020 GERD (gastroesophageal reflux disease) History of frequent headaches Insomnia Left leg cellulitis March 2024; s/p antibiotic treatment Myocardial infarction (~1979) Without intervention Osteoporosis Surgical History Surgical History History of appendectomy History of carpal tunnel release History of gastric bypass History of Bella fundoplication History of total abdominal hysterectomy and bilateral salpingo-oophorectomy Hx of cholecystectomy (~1964) Status post cataract extraction of both eyes with insertion of intraocular lens Status post open reduction with internal fixation of fracture Right hip fracture Family History Family History Father Acute myocardial infarction COPD (chronic obstructive pulmonary disease) Mother Heart disease Diabetes mellitus Breast cancer Social History Social History Social History: The patient lives at home with her . They had a daughter and a son. 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
[2024-05-26 11:58] LABS: MRSA (PCR) NOT DETECTED (NOT DETECTE)
[2024-05-26] MEDS: ENOXAPARIN 40 MG/0.4 ML SYRINGE SUB-Q (13:38)
[2024-05-26] MEDS: FUROSEMIDE INJ 40 MG/4 ML VIAL 20 MG IV PUSH (13:38)
[2024-05-26] MEDS: metroNIDAZOLE 500 MG/ISO 100ML 500 MG/100 ML BAG 100 MG IVPB ×2 (13:38→21:25)
[2024-05-26] MEDS: POTASSIUM CHLORIDE 20 MEQ ER TABLET 40 MEQ PO (13:39)
--- NOTE | 2024-05-26 14:54 | PCSTNOTE ---
Please refer to the Bedside Swallow Evaluation in the EMR. Please note, silent aspiration cannot be ruled out at bedside.
[2024-05-26 15:21] LABS: Creatinine Urine 22.7 mg/dL
[2024-05-26 15:23] LABS: Sodium Urine Random 111 meq/L
[2024-05-26] MEDS: ACETAMINOPHEN 325 MG TABLET 650 MG PO (16:16)
[2024-05-26] MEDS: MONTELUKAST SODIUM 10 MG TABLET PO (21:25)
[2024-05-26] MEDS: traZODone HCL 50 MG TABLET PO (21:25)
[2024-05-26] MEDS: IPRATROPIUM NASAL SPRAY 0.03% 15 ML BOTTLE 2 SPRAY NASAL (21:26)
[2024-05-27] VITALS (8 sets, daily range): BP systolic 82–134; BP diastolic 44–68; PULSE 71–98; RESP 14–20; TEMP 35.8–37.4; O2SAT 90–99
[2024-05-27] MEDS: metroNIDAZOLE 500 MG/ISO 100ML 500 MG/100 ML BAG 100 MG IVPB (06:01)
[2024-05-27 06:40] LABS: Basophils Absolute Auto 0.1 K/mm3 (0.0-0.1); Basophils Percent Auto 0.8 % (0.2-1.2); Eosinophils Percent Auto 0.4 % (0-4.4); Hematocrit 34.6 % (37.0-47.0); Hemoglobin 11.1 g/dL (12.0-15.0); Immature Granulocyte Absolute 0.02 K/mm3 (0.00-0.031); Immature Granulocyte Percent A 0.3 % (0-0.5); Lymphocytes Absolute Auto 0.89 K/mm3 (0.9-3.2); Lymphocytes Percent Auto 11.3 % (18.3-44.2); Mean Corpuscular HGB Conc 32.1 g/dl (32-36); Mean Corpuscular Hemoglobin 28.5 pg (26-34); Mean Corpuscular Volume 88.9 fl (80-100); Mean Platelet Volume 8.2 fl (7.4-10.4); Monocytes Absolute Auto 0.7 K/mm3 (0.1-0.6); Monocytes Percent Auto 8.4 % (2.6-8.5); Neutrophils Absolute Auto 6.2 K/mm3 (1.3-6.7); Neutrophils Percent Auto 78.8 % (45.5-73.1); Platelet Count Result 246 k/mm3 (150-375); Red Blood Count 3.89 M/mm3 (4.2-5.4); Red Cell Distribution Width 17.2 % (11.5-14.5); White Blood Count 7.9 K/mm3 (4.5-10.0)
[2024-05-27 06:52] LABS: Albumin Level 2.8 g/dL (3.5-5.1); Anion Gap 6 mmol/L (4-12); Blood Urea Nitrogen 17 mg/dL (7-17); Calcium 8.4 mg/dL (8.4-10.2); Carbon Dioxide 28 mmol/L (22-30); Chloride 99 mmol/L (98-107); Estimated CRCL calculation 39 ml/min; Estimated Glomerular Filt Rate > 60; Glucose 80 mg/dL (65-110); Phosphorus 3.7 mg/dL (2.5-4.5); Potassium 3.2 mmol/L (3.4-5.0); Sodium 133 mmol/L (137-145)
[2024-05-27 06:56] LABS: Immunoglobulin A 98 mg/dL (70-400); Immunoglobulin G 432 mg/dL (700-1600); Immunoglobulin M 62 mg/dL (40-230)
[2024-05-27 07:08] LABS: Iron 21 ug/dL (37-170)
[2024-05-27 07:18] LABS: Percent Iron Saturation 10 % (20-50)
[2024-05-27] MEDS: ENOXAPARIN 40 MG/0.4 ML SYRINGE SUB-Q (08:36)
[2024-05-27] MEDS: LORATADINE 10 MG TABLET PO (08:36)
[2024-05-27] MEDS: PANTOPRAZOLE 40 MG TABLET PO (08:36)
[2024-05-27] MEDS: ACETAMINOPHEN 325 MG TABLET 650 MG PO (08:36)
[2024-05-27] MEDS: MEMANTINE 10 MG TABLET PO (08:36)
[2024-05-27] MEDS: IPRATROPIUM NASAL SPRAY 0.03% 15 ML BOTTLE 2 SPRAY NASAL ×2 (08:37→20:21)
[2024-05-27] MEDS: polyethylene glycoL 3350 17 GM POWD.PACK PO (08:37)
[2024-05-27] MEDS: AZELASTINE HCL NASAL 0.1% 137 MCG/SPR 30 ML BTL 2 SPRAY NASAL (08:37)
[2024-05-27] MEDS: POTASSIUM CHLORIDE 20 MEQ ER TABLET 40 MEQ PO (08:39)
--- NOTE | 2024-05-27 09:30 | ECG_ITS ---
Test Date: 2024-05-27 09:44:25 Measurements Intervals [place] Rate: 84 P: 24 WV: 148 QRS: -65 QRSD: 100 T: 33 QT: 352 QTc: 416 Interpretive Statements SINUS RHYTHM PATTERN CONSISTENT WITH PULMONARY DISEASE INCOMPLETE RIGHT BUNDLE BRANCH BLOCK [90+ ms QRS DURATION, TERMINAL R IN V1/V2, 40+ ms S IN I/aVL/V4/V5/V6] LEFT ANTERIOR FASCICULAR BLOCK [QRS AXIS <= -45, QR IN I, RS IN II] SEPTAL MYOCARDIAL INFARCTION , OF INDETERMINATE AGE [40+ ms Q WAVE IN V1/V2] Compared to ECG 05/26/2024 02:30:53 no change Electronically Signed On 05-28-2024 14:22:05 CDT by Luis Horn M.D.
[2024-05-27] MEDS: SODIUM CHLORIDE 0.9% IV 1,000 ML 999 ML IV CONT (09:45)
[2024-05-27] MEDS: VANCOMYCIN 1,250 MG/NS 250 ML 1,250 MG/250 ML BAG 166.67 MG IVPB (10:41)
[2024-05-27 10:47] LABS: Hematocrit 32.9 % (37.0-47.0); Hemoglobin 10.4 g/dL (12.0-15.0); Mean Corpuscular HGB Conc 31.6 g/dl (32-36); Mean Corpuscular Hemoglobin 29.1 pg (26-34); Mean Corpuscular Volume 91.9 fl (80-100); Mean Platelet Volume 8.3 fl (7.4-10.4); Platelet Count Result 213 k/mm3 (150-375); Red Blood Count 3.58 M/mm3 (4.2-5.4); Red Cell Distribution Width 17.3 % (11.5-14.5); White Blood Count 6.4 K/mm3 (4.5-10.0)
[2024-05-27 11:16] LABS: Magnesium 1.9 mg/dL (1.6-2.3); Phosphorus 3.1 mg/dL (2.5-4.5)
[2024-05-27 11:29] LABS: NT Pro B Type Natriuretic Pept 536 pg/mL (19.9-100); Troponin I < 0.012 ng/mL (0.000-0.034)
--- NOTE | 2024-05-27 11:51 | PM.IMPN ---
Progress Note: A&P Assessment and Plan (1) Chest pain: Code(s): R07.9 - Chest pain, unspecified Status: Acute Assessment and Plan: Patient complains of acute onset of chest pain. She had just eaten. Repeat EKG stat showing no change. CXR was clear. Blood work showing no acute concerns. BNP 536. Troponin negative x1. Associated with HoTN. Consider vasovagal related to the severe pain. PE unlikely since she has no tachycardia, SOB or hypoxia. LE venous doppler negative. Not felt to be acute TN or posterior TN. She was feeling pre-syncopal. IV fluid bolus started and she was eventually moved to her bed. She had improvement once she was in the bed. BP now 125/64. She is now sitting up in chair eating lunch. She worked with therapy without issue. Check CTA chest. Will place on monitor 45 minutes spent on critical care time (2) Hypotension: Code(s): I95.9 - Hypotension, unspecified Status: Acute Assessment and Plan: As above. Suspect vasovagal episode related to pain. Further evaluation as above. (3) Cellulitis: Code(s): L03.90 - Cellulitis, unspecified Status: Acute Assessment and Plan: Patient with cellulitis LLE. Partially treated and completed abx about 4 days ago (but does not recall the name). Also was on steroids Doppler negative for DVT. Left Tib/Fib Xray was negative for concerning findings. WBC, ESR and CRP normal. Given Levaquin and Vanco in the ED MRSA nasal swab PCR negative. IgG level low so will check subclass. BCx pending Discussed with PharnD ID who recommended Linezolid. Abx adjusted. Elevate leg (4) Pneumonia: Code(s): J18.9 - Pneumonia, unspecified organism Status: Acute Assessment and Plan: CXR showing vague hazy right midlung airspace opacity. CXR was clear in March No clinical evidence of PNA but states patient has frequent bouts of PNA. She also with sinus complaints. Considered aspiration so ST did bedside evaluation which patient did well with. Okay to stop Flagyl. IgA level okay Contineu Levaquin (5) Hypokalemia: Code(s): E87.6 - Hypokalemia Status: Acute Assessment and Plan: Potassium low again so will replace again. Mag 2.0 Sodium also low. Maximo elevated so fluid restriction started. (6) Alzheimer dementia: Qualifiers: Alzheimer's disease onset: late onset Dementia behavioral or psychological symptom: without behavioral, psychotic, or mood disturbance or anxiety Dementia severity: severe Qualified Code(s): G30.1 - Alzheimer's disease with late onset; F02.C0 - Dementia in other diseases classified elsewhere, severe, without behavioral disturbance, psychotic disturbance, mood disturbance, and anxiety Code(s): G30.9 - Alzheimer's disease, unspecified; F02.80 - Dementia in other diseases classified elsewhere, unspecified severity, without behavioral disturbance, psychotic disturbance, mood disturbance, and anxiety Status: Acute Assessment and Plan: Patient is alert but confused. feels this is worsening. She drinks excessive caffeine probably not helping her sleep cycle. He is considering NH placement Continue PT/OT. Care coordination consult. Continue namenda (7) Leg edema: Code(s): R60.0 - Localized edema Status: Acute Assessment and Plan: Bilateral LE edema noted. Consider related to her low albumin. Consider either GI loss or poor production or malnutrtion. Consider also CHF but Echo showing EF 70% and Grade I diastolic dysfunction Bilateral LE doppler negative for DVT. Elevate legs. RLE compression hose added. Continue dietary supplements. Plan DVT Prophylaxis - lovenox Code status - Full Subjective Date/time seen: 05/27/24 11:51 Interval history: 84yo female with dementia, CAD/TN and hx of LLE cellulitis here for left lower extremity cellulitis. Was seen early this morning. She is esme
[2024-05-27 12:15] LABS: Procalcitonin 0.6 ng/mL
--- NOTE | 2024-05-27 13:49 | PCPTNOTE ---
On 05/27/24, the student, [Lauren Rios], provided care and completed [facility] documentation on this patient. I have reviewed the student's documentation and agree with the findings.
[2024-05-27 13:58] LABS: Troponin I < 0.012 ng/mL (0.000-0.034)
[2024-05-27 16:41] LABS: Troponin I < 0.012 ng/mL (0.000-0.034)
[2024-05-27] MEDS: MONTELUKAST SODIUM 10 MG TABLET PO (20:21)
[2024-05-27] MEDS: traZODone HCL 50 MG TABLET PO (20:21)
[2024-05-28] VITALS: PULSE 70
[2024-05-28 04:00] VITALS: PULSE 76
[2024-05-28] MEDS: ACETAMINOPHEN 325 MG TABLET 650 MG PO (05:55)
[2024-05-28 05:57] VITALS: BP 142/65; PULSE 75; RESP 16; TEMP 37; O2SAT 98
[2024-05-28 06:55] LABS: Basophils Percent Auto 0.5 % (0.2-1.2); Eosinophils Absolute Auto 0.1 K/mm3 (0-0.3); Eosinophils Percent Auto 1.1 % (0-4.4); Hematocrit 30.6 % (37.0-47.0); Hemoglobin 9.8 g/dL (12.0-15.0); Immature Granulocyte Absolute 0.02 K/mm3 (0.00-0.031); Immature Granulocyte Percent A 0.4 % (0-0.5); Lymphocytes Absolute Auto 1.06 K/mm3 (0.9-3.2); Mean Corpuscular Hemoglobin 28.8 pg (26-34); Mean Platelet Volume 8.4 fl (7.4-10.4); Monocytes Absolute Auto 0.5 K/mm3 (0.1-0.6); Monocytes Percent Auto 8.6 % (2.6-8.5); Neutrophils Absolute Auto 3.9 K/mm3 (1.3-6.7); Neutrophils Percent Auto 70.4 % (45.5-73.1); Platelet Count Result 235 k/mm3 (150-375); Red Cell Distribution Width 17.3 % (11.5-14.5); White Blood Count 5.6 K/mm3 (4.5-10.0)
[2024-05-28 07:13] LABS: Albumin Level 2.3 g/dL (3.5-5.1); Anion Gap 1 mmol/L (4-12); Blood Urea Nitrogen 16 mg/dL (7-17); Calcium 8.2 mg/dL (8.4-10.2); Carbon Dioxide 29 mmol/L (22-30); Chloride 104 mmol/L (98-107); Estimated CRCL calculation 39 ml/min; Estimated Glomerular Filt Rate > 60; Glucose 80 mg/dL (65-110); Phosphorus 2.6 mg/dL (2.5-4.5); Potassium 3.5 mmol/L (3.4-5.0); Sodium 134 mmol/L (137-145)
[2024-05-28 08:00] VITALS: PULSE 65
[2024-05-28] MEDS: LORATADINE 10 MG TABLET PO (08:01)
[2024-05-28] MEDS: PANTOPRAZOLE 40 MG TABLET PO (08:01)
[2024-05-28] MEDS: ENOXAPARIN 40 MG/0.4 ML SYRINGE SUB-Q (08:01)
[2024-05-28] MEDS: MEMANTINE 10 MG TABLET PO (08:01)
[2024-05-28] MEDS: LINEZOLID 600 MG TABLET PO (08:01)
[2024-05-28] MEDS: levoFLOXacin 750 MG TABLET PO (08:01)
[2024-05-28] MEDS: IPRATROPIUM NASAL SPRAY 0.03% 15 ML BOTTLE 2 SPRAY NASAL (08:02)
[2024-05-28] MEDS: AZELASTINE HCL NASAL 0.1% 137 MCG/SPR 30 ML BTL 2 SPRAY NASAL (08:02)
[2024-05-28 12:00] VITALS: PULSE 101
--- NOTE | 2024-05-28 13:35 | PM.IMPN ---
Progress Note: A&P Assessment and Plan (1) Chest pain: Code(s): R07.9 - Chest pain, unspecified Status: Acute Assessment and Plan: Patient complained of acute onset of chest pain on 05/27. She had just eaten. Repeat EKG stat showing no change. CXR was clear. Blood work showing no acute concerns. BNP 536. Troponin negative x3. CTA Chest/Abd/Pelvis showing no PE or dissection, small pleural effusions and hiatal hernia with evidence of gastric bypass. She has associated HoTN. Consider vasovagal related to her back pain at the time. She was feeling pre-syncopal. IV fluid bolus given and started on IV fluids. She had improvement. Latre that morning, she was up sitting in the chair eating lunch. She worked with therapy without issue. Continue to monitor (2) Hypotension: Code(s): I95.9 - Hypotension, unspecified Status: Acute Assessment and Plan: As above. Suspect vasovagal episode related to pain. Continue to monitor (3) Cellulitis: Code(s): L03.90 - Cellulitis, unspecified Status: Acute Assessment and Plan: Patient with cellulitis LLE. Partially treated and completed abx about 4 days ago (but does not recall the name). Also was on steroids Doppler negative for DVT. Left Tib/Fib Xray was negative for concerning findings. WBC, ESR and CRP normal. Given Levaquin and Vanco in the ED MRSA nasal swab PCR negative. IgG level low BCx pNGTD Discussed with PharnD ID who recommended Linezolid. Abx adjusted. Elevate leg (4) Pneumonia: Code(s): J18.9 - Pneumonia, unspecified organism Status: Acute Assessment and Plan: CXR showing vague hazy right midlung airspace opacity. CXR was clear in March No clinical evidence of PNA but states patient has frequent bouts of PNA. She also with sinus complaints. Considered aspiration so ST did bedside evaluation which patient did well with. Okay to stop Flagyl. IgA level okay Continue Levaquin (5) Hypokalemia: Code(s): E87.6 - Hypokalemia Status: Acute Assessment and Plan: Potassium normal. Mag 2.0 yesterday Sodium also low. Maximo elevated so fluid restriction started. Sodium climbing. (6) Alzheimer dementia: Qualifiers: Alzheimer's disease onset: late onset Dementia severity: severe Dementia behavioral or psychological symptom: without behavioral, psychotic, or mood disturbance or anxiety Qualified Code(s): G30.1 - Alzheimer's disease with late onset; F02.C0 - Dementia in other diseases classified elsewhere, severe, without behavioral disturbance, psychotic disturbance, mood disturbance, and anxiety Code(s): G30.9 - Alzheimer's disease, unspecified; F02.80 - Dementia in other diseases classified elsewhere, unspecified severity, without behavioral disturbance, psychotic disturbance, mood disturbance, and anxiety Status: Acute Assessment and Plan: Patient is alert but confused. feels this is worsening. She drinks excessive caffeine probably not helping her sleep cycle. He is considering NH placement Continue PT/OT. Care coordination consulted. Continue namenda (7) Leg edema: Code(s): R60.0 - Localized edema Status: Acute Assessment and Plan: Bilateral LE edema noted. Consider related to her low albumin. Consider either GI loss or poor production or malnutrtion. Consider also CHF but Echo showing EF 70% and Grade I diastolic dysfunction Bilateral LE doppler negative for DVT. Edema better. Continue to elevate legs. RLE compression hose added. Continue dietary supplements. Plan DVT Prophylaxis - lovenox Code status - Full Disp - okay to discharge any time Subjective Date/time seen: 05/28/24 13:35 Interval history: 84yo female with dementia, CAD/[place] and hx of LLE cellulitis here for left lower extremity cellulitis. No problems overnight. No n/v. Eating okay. No CP. Leg pain better. Exam Narrative
[2024-05-28 13:47] VITALS: BP 98/50; PULSE 73; RESP 16; TEMP 36.6; O2SAT 100
--- NOTE | 2024-05-28 16:27 | PM.DS ---
DS: Admitting Diagnosis Discharge Date 05/28/24 Admitting Diagnosis Leg pain DS: Discharge Diagnosis Discharge Diagnosis (1) Chest pain: Code(s): R07.9 - Chest pain, unspecified Status: Acute (2) Hypotension: Code(s): I95.9 - Hypotension, unspecified Status: Acute (3) Cellulitis: Code(s): L03.90 - Cellulitis, unspecified Status: Acute (4) Pneumonia: Code(s): J18.9 - Pneumonia, unspecified organism Status: Acute (5) Hypokalemia: Code(s): E87.6 - Hypokalemia Status: Acute (6) Alzheimer dementia: Qualifiers: Alzheimer's disease onset: late onset Dementia severity: severe Dementia behavioral or psychological symptom: without behavioral, psychotic, or mood disturbance or anxiety Qualified Code(s): G30.1 - Alzheimer's disease with late onset; F02.C0 - Dementia in other diseases classified elsewhere, severe, without behavioral disturbance, psychotic disturbance, mood disturbance, and anxiety Code(s): G30.9 - Alzheimer's disease, unspecified; F02.80 - Dementia in other diseases classified elsewhere, unspecified severity, without behavioral disturbance, psychotic disturbance, mood disturbance, and anxiety Status: Acute (7) Leg edema: Code(s): R60.0 - Localized edema Status: Acute DS: Summary Hospital Course Reason for hospitalization: 84yo female with dementia, CAD/[place] and hx of LLE cellulitis here for left lower extremity cellulitis. Please see H&P for details. Hospital Course: Patient presents with leg pain and found to have cellulitis LLE. Partially treated and completed abx about 4 days ago (but does not recall the name). Also was on steroids. Doppler negative for DVT. Left Tib/Fib Xray was negative for concerning findings. WBC, ESR and CRP normal. Given Levaquin and Vanco in the ED. MRSA nasal swab PCR negative. IgG level low. BCx NGTD. Discussed with PharnD ID who recommended Linezolid. Abx adjusted. CXR showing vague hazy right midlung airspace opacity. CXR was clear in March. No clinical evidence of PNA but states patient has frequent bouts of PNA so we proceed with treatment. She also with sinus complaints. Considered aspiration so ST did bedside evaluation which patient did well with. IgA level okay Patient complained of acute onset of chest pain on 05/27. She had just eaten. Repeat EKG stat showing no change. CXR was clear. Blood work showing no acute concerns. BNP 536. Troponin negative x3. CTA Chest/Abd/Pelvis showing no PE or dissection, small pleural effusions and hiatal hernia with evidence of gastric bypass. She has associated HoTN. Consider vasovagal related to her back pain at the time. She was feeling pre-syncopal. IV fluid bolus given and started on IV fluids. She had improvement. Later that morning, she was up sitting in the chair eating lunch. She worked with therapy without issue. CT chest was negative for PNA. PNA ruled out. Patient is alert but confused. feels this is worsening. She drinks excessive caffeine probably not helping her sleep cycle. He is considering NH placement but she did not qualif for SNF and he can not private pay so plan is for her to return home. Bilateral LE edema noted. Consider related to her low albumin. Consider either GI loss or poor production or malnutrition. Consider also CHF but Echo showing EF 70% and Grade I diastolic dysfunction and CXR not consistent with pulmonary edema. Bilateral LE doppler negative for DVT. Edema better. She overall did well and was able to be discharged home on 05/28/24 Status at Discharge Cognitive/behavioral status at discharge: stable Time Spent with Patient Time attestation: Total time spent providing and/or coordinating discharge services: 35 minutes Time spent: Greater than 30 minutes Exam Narrative: AF 98.6 142/65 101 16 98% ra Gen - NARD Chest - CTA bilaterally, nml RR CV - RRR. S1-S2. Tele showing no significa
[2024-06-01 09:54] LABS: Immunoglobulin G, Serum 396 mg/dL (600-1540); Immunoglobulin G1 210 mg/dL (382-929); Immunoglobulin G2 121 mg/dL (241-700); Immunoglobulin G3 9 mg/dL (22-178); Immunoglobulin G4 12.8 mg/dL (4.0-86.0)
--- NOTE | 2024-06-15 08:37 | PC.NURSE ---
IgG subclass results faxed to Alyssa Stevens NP. Office received lab.
== END 2024-05-28 17:20 | disposition home health service (06) | DRG 603 ==
LOC: ANHED 05:45 → ANH3MEDSUR 09:52
PROVIDERS: Emergency Medicine; Admitting Provider Internal Medicine; Emergency Provider Emergency Medicine; PCP Nurse Practitioner Family; Visit Provider Internal Medicine
DX: L03.116 Cellulitis of left lower limb (principal); E46 Unspecified protein-calorie malnutrition; J90 Pleural effusion, not elsewhere classified; E87.6 Hypokalemia; R07.9 Chest pain, unspecified; G30.9 Alzheimer's disease, unspecified; F02.80 Dementia in other diseases classified elsewhere, unspecified severity, without behavioral disturbance, psychotic disturbance, mood disturbance, and anxiety; R60.0 Localized edema; K21.9 Gastro-esophageal reflux disease without esophagitis; M81.0 Age-related osteoporosis without current pathological fracture; I95.89 Other hypotension; I25.10 Atherosclerotic heart disease of native coronary artery without angina pectoris; K44.9 Diaphragmatic hernia without obstruction or gangrene; I25.2 Old myocardial infarction; Z90.49 Acquired absence of other specified parts of digestive tract; Z98.84 Bariatric surgery status; Z90.710 Acquired absence of both cervix and uterus; Z90.722 Acquired absence of ovaries, bilateral; Z96.1 Presence of intraocular lens; Z98.42 Cataract extraction status, left eye; Z98.41 Cataract extraction status, right eye; Z87.891 Personal history of nicotine dependence; Z68.25 Body mass index [BMI] 25.0-25.9, adult
CPT/HCPCS: 36415; 71045; 71275; 73590; 74174; 80053; 80069; 81001; 82570; 82728; 82784; 82787; 83540; 83550; 83605; 83735; 83880; 84100; 84145; 84300; 84443; 84484; 85025; 85027; 85652; 86140; 87040; 87086; 87641; 92610; 93005; 93306; 93971; 96361; 96365; 96366; 96372; 96375; 96376; 97161; 97165; 99285; A9270; G0378; J1650; J1836; J1940; J1956; J3370; J7030; Q9967

== ENCOUNTER 2024-06-01 15:04 | Emergency (ER) | payer OTHER, SELFPAY ==
--- NOTE | ~2024-06-01 | CT_ITS ---
EXAMINATION: CT brain wo con DATE: 06/01/2024 16:45 INDICATION: Head injury. TECHNIQUE: Computed tomography (CT) of the head was performed without intravenous contrast. The mA wa s adjusted according to patient size. Iterative reconstruction technique was employed. The dose-lengt h product was 605.33 mGy-cm. COMPARISON: Head CT 04/19/2024 FINDINGS: There are scattered areas of low attenuation in the cerebral white matter, which is within normal limits for the patient's age. There is no intracranial hemorrhage, acute infarction, or abnor mal intracranial mass lesion. The ventricles are normal in size. There is mild mucosal thickening in the ethmoid sinuses. There are likely changes of ocular lens replacement surgeries. The mastoid air c ells are normal. IMPRESSION: 1. Normal aging brain. Reviewed, dictated and finalized at location A. IMPRESSION: 1. Normal aging brain.
--- NOTE | ~2024-06-01 | CT_ITS ---
EXAMINATION: CT cervical spine wo con DATE: 06/01/2024 16:45 INDICATION: Head injury. TECHNIQUE: Computed tomography (CT) of the cervical spine was performed without intravenous contrast. Automated exposure control and iterative reconstruction technique were employed. The dose-length pro duct was 148.21 mGy-cm. COMPARISON: None FINDINGS: There is 6 degrees levocurvature of cervical spine. Vertebral body heights are normal. Ther e is severely decreased disc height at C5-C6 and moderately decreased disc height at C6-C7. The follo wing disc levels are specifically discussed: C2-C3: There is mild bilateral uncovertebral joint osteoarthritis. There is mild bilateral facet join t osteoarthritis. There is no neural foraminal stenosis. There is no central canal stenosis. C3-C4: There is mild left uncovertebral joint osteoarthritis. There is mild bilateral facet joint ost eoarthritis. There is mild left neural foraminal stenosis. There is no central canal stenosis. C4-C5: There is mild bilateral uncovertebral joint osteoarthritis. There is severe bilateral facet svetlana int osteoarthritis. There is mild bilateral neural foraminal stenosis. There is no central canal sten osis. C5-C6: There is moderate bilateral uncovertebral joint osteoarthritis. There is mild bilateral facet joint osteoarthritis. There is mild bilateral neural foraminal stenosis. There is mild central canal stenosis. C6-C7: There is no uncovertebral joint osteoarthritis. There is mild bilateral facet joint osteoarthr itis. There is no neural foraminal stenosis. There is no central canal stenosis. C7-T1: There is no uncovertebral joint osteoarthritis. There is moderate bilateral facet joint osteoa rthritis. There is no neural foraminal stenosis. There is no central canal stenosis. IMPRESSION: 1. No fracture. 2. Moderate cervical spondylosis. Reviewed, dictated and finalized at location A.
--- NOTE | ~2024-06-01 | XR_ITS ---
EXAMINATION: XR elbow RT 2V DATE: 06/01/2024 16:35 INDICATION: Fall. Right elbow injury. TECHNIQUE: 2 views of right elbow were obtained. COMPARISON: None. FINDINGS: Alignment is normal. No fracture. There is mild elbow joint osteoarthritis. No elbow joint effusion. IMPRESSION: 1. Mild elbow joint osteoarthritis. Reviewed, dictated and finalized at location A.
--- NOTE | ~2024-06-01 | XR_ITS ---
EXAMINATION: XR tibia fibula RT 2V DATE: 06/01/2024 16:35 INDICATION: Right lower leg pain. Fall. TECHNIQUE: 2 views of right tibia and fibula were obtained. COMPARISON: None. FINDINGS: Alignment is normal. No fracture. There is mild knee joint osteoarthritis. No knee joint ef fusion. IMPRESSION: 1. Mild right knee osteoarthritis. Reviewed, dictated and finalized at location A.
--- NOTE | ~2024-06-01 | XR_ITS ---
EXAMINATION: XR hand LT min 3V DATE: 06/01/2024 16:35 INDICATION: Left hand injury. TECHNIQUE: 3 views of left hand were obtained. COMPARISON: None. FINDINGS: Alignment is normal. No fracture. There is mild osteoarthritis of first carpometacarpal ashley nt, second and third metacarpophalangeal joints, and some of the interphalangeal joints. There is a p unctate calcification ulnar to third proximal interphalangeal joint. IMPRESSION: 1. Polyarticular osteoarthritis. Reviewed, dictated and finalized at location A.
--- NOTE | ~2024-06-01 | XR_ITS ---
EXAMINATION: XR foot LT min 3V DATE: 06/01/2024 16:36 INDICATION: Left foot bruising post fall TECHNIQUE: Dorsoplantar, oblique and lateral views of the left foot were obtained. COMPARISON: None. FINDINGS: Chronic resection of the head of the left fifth proximal phalanx. Subtle oblique lucent band across t he lateral base of the left fifth metatarsal suspicious for nondisplaced intra-articular avulsion fra cture. Alignment remains otherwise normal. No other lesions suspicious for fracture identified. Minim al to mild polyarticular osteoarthritis at a few joints in the mid and forefoot. IMPRESSION: 1. Likely nondisplaced intra-articular avulsion fracture at the lateral base of the left fifth metata rsal. Correlate for point tenderness at this location. Reviewed, dictated and finalized at location A. IMPRESSION: 1. Likely nondisplaced intra-articular avulsion fracture at the lateral base of the left fifth metatarsal. Correlate for point tenderness at this location.
[2024-06-01 15:05] VITALS: BP 162/92; PULSE 87; RESP 16; TEMP 37; O2SAT 100
--- NOTE | 2024-06-01 16:06 | ED.WOUNDLAC ---
HPI - Wound/Laceration General Chief Complaint: Wound/Laceration <Ashley Bales PA-C - Last Filed: 06/01/24 16:13> Stated Complaint: finger lac <Ashley Bales PA-C - Last Filed: 06/01/24 16:13> Time Seen by Provider: 06/01/24 17:49 <Ashley Bales PA-C - Last Filed: 06/01/24 16:13> Focused HPI: GENERAL: Well-appearing, well-nourished, and in no acute distress. HEAD: Normocephalic, atraumatic. CHEST: Clear to auscultation. ?No respiratory distress. HEART: Regular rate and rhythm.? NEURO: ?Alert and oriented x3. Patient screened in triage and initial orders placed.? ?Additional care and disposition to be based upon?diagnostic testing and treatment. <DOMINIC Storm Last Filed: 06/01/24 16:13> History of Present Illness HPI narrative: [age] old female present to the emergency department for evaluation after having a fall. Patient had been bringing her garbage can inside when she tripped and injured her left foot and right elbow. <Sanjiv Dee MD - Last Filed: 06/01/24 21:28> Related Data Home Medications: Home Medications Medication Instructions Recorded Confirmed ipratropium bromide 21 mcg (0.03 2 spray intranasal BID 04/19/24 05/26/24 %) nasal spray memantine 10 mg tablet 10 mg PO DAILY 04/19/24 05/26/24 montelukast 10 mg tablet 10 mg PO QHS 04/19/24 05/26/24 omeprazole 20 mg capsule,delayed 20 mg PO DAILY 04/19/24 05/26/24 release trazodone 50 mg tablet 50 mg PO QHS 04/19/24 05/26/24 azelastine 137 mcg (0.1 %) nasal 2 spray intranasal DAILY 04/20/24 05/26/24 spray loratadine 10 mg tablet 10 mg PO DAILY 04/20/24 05/26/24 <DOMINIC Storm Last Filed: 06/01/24 16:13> Allergies/Adverse Reactions: Allergies Allergy/AdvReac Type Severity Reaction Status Date / Time codeine Allergy Severe CHEST Verified 04/19/24 15:03 PAIN;DIFFICULTY BREATHING morphine Allergy Severe CHEST Verified 04/19/24 15:03 PAIN;DIFFICULTY BREATHING <Ashley Bales PA-C - Last Filed: 06/01/24 16:13> Review of Systems Review of Systems: All systems reviewed & are unremarkable except as noted in HPI and below <Sanjiv Dee MD - Last Filed: 06/01/24 21:28> [facility] Past Medical History Medical History: Medical History Allergic rhinitis Alzheimer dementia Fracture of humeral head, right, closed Chronic from a fall in 2020 GERD (gastroesophageal reflux disease) History of frequent headaches Insomnia Left leg cellulitis March 2024; s/p antibiotic treatment Myocardial infarction (~1979) Without intervention Osteoporosis <Ashley Bales PA-C - Last Filed: 06/01/24 16:13> Surgical History Surgical History: Surgical History History of appendectomy History of carpal tunnel release History of gastric bypass History of Bella fundoplication History of total abdominal hysterectomy and bilateral salpingo-oophorectomy Hx of cholecystectomy (~1964) Status post cataract extraction of both eyes with insertion of intraocular lens Status post open reduction with internal fixation of fracture Right hip fracture <Ashley Bales PA-C - Last Filed: 06/01/24 16:13> Family History Family History: Family History Father Acute myocardial infarction COPD (chronic obstructive pulmonary disease) Mother Heart disease Diabetes mellitus Breast cancer <Ashley Bales PA-C - Last Filed: 06/01/24 16:13> Social History Social History: Social History Social History: The patient lives at home with her . They had a daughter and a son. 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 She used to smoke. She thinks that she smoked for maybe 15
[2024-06-01 18:50] VITALS: BP 136/80; PULSE 80; RESP 16; TEMP 36.7; O2SAT 100
== END 2024-06-01 18:51 | disposition home or self-care (01) ==
PROVIDERS: Emergency Provider Emergency Medicine; PCP Nurse Practitioner Family
DX: S92.355A Nondisplaced fracture of fifth metatarsal bone, left foot, initial encounter for closed fracture (principal); S61.211A Laceration without foreign body of left index finger without damage to nail, initial encounter; S61.213A Laceration without foreign body of left middle finger without damage to nail, initial encounter; S51.011A Laceration without foreign body of right elbow, initial encounter; G30.9 Alzheimer's disease, unspecified; F02.80 Dementia in other diseases classified elsewhere, unspecified severity, without behavioral disturbance, psychotic disturbance, mood disturbance, and anxiety; I25.2 Old myocardial infarction; K21.9 Gastro-esophageal reflux disease without esophagitis; Z98.84 Bariatric surgery status; Z87.891 Personal history of nicotine dependence; Z90.710 Acquired absence of both cervix and uterus; Z90.722 Acquired absence of ovaries, bilateral; Z90.79 Acquired absence of other genital organ(s); Z90.49 Acquired absence of other specified parts of digestive tract; M81.0 Age-related osteoporosis without current pathological fracture; M19.021 Primary osteoarthritis, right elbow; M18.9 Osteoarthritis of first carpometacarpal joint, unspecified; M19.042 Primary osteoarthritis, left hand; M17.11 Unilateral primary osteoarthritis, right knee; M47.812 Spondylosis without myelopathy or radiculopathy, cervical region; W01.0XXA Fall on same level from slipping, tripping and stumbling without subsequent striking against object, initial encounter
CPT/HCPCS: 70450; 72125; 73070; 73130; 73590; 73630; 99284

== ENCOUNTER 2024-10-18 10:41 | Emergency (ER) | payer OTHER, SELFPAY ==
[2024-10-18] VITALS (11 sets, daily range): BP systolic 145–174; BP diastolic 69–85; PULSE 65–81; RESP 15–25; TEMP 36.4; O2SAT 98–100
--- NOTE | ~2024-10-18 | XR_ITS ---
XR chest 2V 10/18/2024 12:06 Indication: Shortness of breath and chest pain Procedure: 2 view chest Comparison: Comparison to multiple prior studies sequentially, with oldest reviewed study dated 04/17. Findings: There is possible right hilar mass. There is right upper lobe consolidation which appears c hronic and not significantly changed. Elevated right diaphragm. There are scattered calcified granulo mas of the right lung. Impression: 1: Possible right hilar mass with upper lobe atelectasis/scarring which is not significantly changed. Recommend correlation with CT chest with contrast. Reviewed, dictated and finalized at location A. OPEDIC RADIOLOGIC TECHNOLOGIST Impression: 1: Possible right hilar mass with upper lobe atelectasis/scarring which is not significantly changed. Recommend correlation with CT chest with contrast.
--- NOTE | ~2024-10-18 | CT_ITS ---
EXAMINATION: CTA chest PE protocol DATE: 10/18/2024 12:53 INDICATION: Dyspnea. Abnormal chest x-ray. TECHNIQUE: Computed tomography (CT) pulmonary angiogram of the chest was performed with 100 mL Omnipa que-350 intravenous contrast. Additional 3D reconstructions utilizing coronal maximum intensity proje ction (MIP) were performed. Automated exposure control and iterative reconstruction technique were em ployed. The dose-length product was 191.67 mGy-cm. COMPARISON: CT dated 05/27/2024 FINDINGS: No pulmonary embolism. Linear band of discoid atelectasis/scarring in the inferior anterior segment r ight upper lobe along the minor fissure. Some additional groundglass opacities slightly more cephalad in the anterior segment which could represent additional atelectasis or pneumonia. Additional thin l inear band of discoid atelectasis in the lingula. Small bilateral calcified pulmonary nodules along w ith calcified left hilar lymph nodes consistent with old granulomatous disease. No pulmonary edema or pleural effusion. Heart size is normal. Atherosclerotic coronary artery calcium patient. No pericard ial effusion.Thoracic aorta is normal in caliber with no dissection. Enlargement of the central pulmo nary arteries consistent with pulmonary arterial hypertension. Small sliding-type hiatal hernia with postoperative change of prior gastric bypass procedure. Status post cholecystectomy. Thoracic kyphosi s with mild anterior wedging at T9-T11 and moderate spondylosis. IMPRESSION: 1. No pulmonary embolism. 2. Groundglass opacities which could represent atelectasis or pneumonia in the anterior segment of th e left upper lobe medially cephalad to a linear band of discoid atelectasis. 3. Enlargement of the central pulmonary arteries consistent with pulmonary arterial hypertension. 4. Small sliding-type hiatal hernia with change of prior gastric bypass procedure. Reviewed, dictated and finalized at location A. [employer]ANG[employer] STITCHDOWNS IMPRESSION: 1. No pulmonary embolism. 2. Groundglass opacities which could represent atelectasis or pneumonia in the anterior segment of the left upper lobe medially cephalad to a linear band of d iscoid atelectasis. 3. Enlargement of the central pulmonary arteries consistent with pulmonary kash rial hypertension. 4. Small sliding-type hiatal hernia with change of prior gastric bypass procedu re.
--- NOTE | 2024-10-18 11:18 | ECG_ITS ---
Test Date: 2024-10-18 11:33:42 Measurements Intervals [place] Rate: 62 P: 84 [place]: 172 QRS: -50 QRSD: 119 T: 3 QT: 390 QTc: 397 Interpretive Statements SINUS RHYTHM INCOMPLETE RIGHT BUNDLE BRANCH BLOCK [90+ ms QRS DURATION, TERMINAL R IN V1/V2, 40+ ms S IN I/aVL/V4/V5/V6] LEFT ANTERIOR FASCICULAR BLOCK [QRS AXIS <= -45, QR IN I, RS IN II] Compared to ECG 05/27/2024 09:44:25 NO SIGNIFICANT CHANGES Electronically Signed On 10-20-2024 12:40:01 [employer] by Sol Zarco M.D.
--- NOTE | 2024-10-18 11:45 | ED.SOB ---
HPI - SOB/Dyspnea General Chief Complaint: Shortness of Breath/Dyspnea Stated Complaint: SOB I have pneumonia Time Seen by Provider: 10/18/24 11:37 History of Present Illness HPI Narrative: 84-year-old female with history of Alzheimer's dementia, GERD presents to the ED with at bedside due to concerns for pneumonia. Patient states she has these congestion and cough for the past day. Reports subjective fevers but no recorded fevers. Also states she has mild dysuria. No hematuria, abdominal pain, N/V/D, chest pain. She does have some shortness of breath with exertion. Denies lower extremity edema. States she has a history of pneumonia, most recent diagnosis was last fall. Denies recent surgeries or hospitalizations. Denies history of asthma or COPD. She does not smoke. Related Data Home Medications ?Medication ?Instructions ?Recorded ?Confirmed ?Last Taken ?Type ipratropium bromide 21 mcg (0.03 2 spray intranasal BID 04/19/24 05/26/24 Unknown History %) nasal spray memantine 10 mg tablet 10 mg PO DAILY 04/19/24 05/26/24 Unknown History montelukast 10 mg tablet 10 mg PO QHS 04/19/24 05/26/24 Unknown History omeprazole 20 mg capsule,delayed 20 mg PO DAILY 04/19/24 05/26/24 Unknown History release trazodone 50 mg tablet 50 mg PO QHS 04/19/24 05/26/24 Unknown History azelastine 137 mcg (0.1 %) nasal 2 spray intranasal DAILY 04/20/24 05/26/24 Unknown History spray loratadine 10 mg tablet 10 mg PO DAILY 04/20/24 05/26/24 Unknown History Allergies Allergy/AdvReac Type Severity Reaction Status Date / Time codeine Allergy Severe CHEST Verified 10/18/24 10:42 PAIN;DIFFICULTY BREATHING morphine Allergy Severe CHEST Verified 10/18/24 10:42 PAIN;DIFFICULTY BREATHING Review of Systems Review of Systems: All systems reviewed & are unremarkable except as noted in HPI and below PMFSH Past Medical History Medical History Fracture of humeral head, right, closed Chronic from a fall in 2020 Myocardial infarction (~1979) Without intervention GERD (gastroesophageal reflux disease) Insomnia Osteoporosis Allergic rhinitis Left leg cellulitis March 2024; s/p antibiotic treatment History of frequent headaches Alzheimer dementia Surgical History Surgical History Status post cataract extraction of both eyes with insertion of intraocular lens Status post open reduction with internal fixation of fracture Right hip fracture History of appendectomy History of carpal tunnel release History of total abdominal hysterectomy and bilateral salpingo-oophorectomy Hx of cholecystectomy (~1965) History of gastric bypass History of Bella fundoplication Family History Family History Father Acute myocardial infarction COPD (chronic obstructive pulmonary disease) Mother Heart disease Diabetes mellitus Breast cancer Social History Social History Social History: The patient lives at home with her . They had a daughter and a son. 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 She used to smoke. She thinks that she smoked for maybe 15 years but she is unsure. She reports that she never really drink much alcohol. She denies history of illicit substance use. Code status: Full code Surrogate decision maker: Smoking status: Former smoker Tobacco type: cigarettes Alcohol intake: never Substance use: never Substance use type: does not use Do You Feel Safe in your Home?: No Lack of Transportation: No Lack of Food: Never True Current Housing: I Have Housing Concerned About Future Housing: No Difficulty Paying Gas/Electric Bills: No Difficulty Paying for Meds: No Currently Unemployed: No Education: High School Diploma/GED Difficulty w/ Childcare or Family Care: No Living arrangements: with family Additional living arrangements comments: Spiritual care concerns: No Exam Narrative: GENERAL: Well-appearing, well-nourished, and in no acute distress. HEAD: Normocephalic, atraumatic. EYES: PERRLA and EOMI. ENT: Nares clear, no rhinorrhea or epistaxis. Mucous membranes moist. NECK: Supple. CHEST: Rhonchi in the right upper lung field, otherwise no adventitious lung sounds. Respiratory distress. Speaking in full sentences. HEART: Regular rate and rhythm. No murmur heard. Normal peripheral pulses. ABDOMEN: Soft, nontender, nondistended, normal active bowel sounds. EXTREMITIES: Normal range of motion. No edema. Negative Homans bilaterally SKIN: Warm, dry, no rash. NEURO: No focal deficits. Alert and oriented x3 Course Vital Signs Vital signs: Vital Signs Temperature 97.6 F 10/18/24 10:58 Pulse Rate 78 10/18/24 10:58 Respiratory Rate 17 10/18/24 10:58 Blood Pressure 145/85 H 10/18/24 10:58 Pulse Oximetry 100 10/18/24 10:58 Oxygen Delivery Room Air 10/18/24 10:58 Temperature 97.6 F 10/18/24 10:58 Pulse Rate 66 10/18/24 13:02 Respiratory Rate 20 10/18/24 13:02 Blood Pressure 174/73 H 10/18/24 13:01 Pulse Oximetry 100 10/18/24 13:02 Oxygen Delivery Room Air 10/18/24 11:26 MDM - SOB/Dyspnea MDM Narrative Medical decision making narrative: 84-year-old female presents to emergency department for nasal congestion, cough, shortness of breath for 1 day. See HPI for further history. Triage vitals with mild elevated blood pressure 145/85, otherwise unremarkable. Patient is afebrile nontoxic appearing, satting 100% on room air in no respiratory distress speaking in full sentences. Exam is significant for the above. CBC without leukocytosis, stable hemoglobin of 10.1. Chemistries are largely unremarkable. Viral swabs are negative. BNP within normal limits. Lipase normal. Chest x-ray shows possible right hilar mass with upper lobe atelectasis/scarring which is not significantly change, recommendations for correlation with a cc chest. Given these findings a CTA chest PE was obtained which shows no PE, there are ground-glass opacities which could represent atelectasis or pneumonia, enlargement of the central pulmonary arteries consistent with pulmonary arterial hypertension and a small sliding hiatal hernia. EKG shows normal sinus rhythm, rate of block, normal SD interval, normal QRS duration, normal QTC, no ST elevations or depressions. Troponin is undetectable. Patient updated on results. She remains resting comfortably in exam bed and well appearing. Given sx, plan to treat as CAP. Curb-65 score is 2 (moderate risk group). Shared decision making regarding inpatient vs outpatient management. Pt would like to go home and agrees to f/u closely with her PCP. Strict ED return precautions. She is agreeable to plan verbalized understanding. Discharged in stable condition. Lab Data 10/18/24 11:43 10/18/24 11:43 Labs: Lab Results 10/18/24 10/18/24 10/18/24 Range/Units 11:43 11:43 12:54 WBC 5.1 (4.5-10.0) K/mm3 RBC 4.03 L (4.2-5.4) M/mm3 Hgb 10.1 L (12.0-15.0) g/dL Hct 32.9 L (37.0-47.0) % MCV 81.6 (80-100) fl MCH 25.1 L (26-34) pg MCHC 30.7 L (32-36) g/dl RDW 16.0 H (11.5-14.5) % Plt Count 258 (150-375) k/mm3 MPV 8.5 (7.4-10.4) fl Immature Gran % (Auto) 0.2 (0-0.5) % Neut % (Auto) 62.0 (45.5-73.1) % Lymph % (Auto) 29.0 (18.3-44.2) % [place] % (Auto) 7.8 (2.6-8.5) % Eos % (Auto) 0.2 (0-4.4) % Baso % (Auto) 0.8 (0.2-1.2) % Lymph # (Auto) 1.49 (0.9-3.2) K/mm3 [place] # (Auto) 0.4 (0.1-0.6) K/mm3 Eos # (Auto) 0.0 (0-0.3) K/mm3 Baso # (Auto) 0.0 (0.0-0.1) K/mm3 Abs Immat Gran (auto) 0.01 (0.00-0.031) K/mm3 Absolute Neuts (auto) 3.2 (1.3-6.7) K/mm3 Absolute Nucleated RBC 0.000 (0.0-0.012) K/mm3 Nucleated RBC % 0.0 (0.0-0.2) % PT 14.7 (11.1-14.7) Seconds INR 1.1 APTT 27.8 (22.3-36.8) Seconds Sodium 140 (137-145) mmol/L Potassium 4.1 (3.4-5.0) mmol/L Chloride 106 (98-107) mmol/L Carbon Dioxide 25 (22-30) mmol/L Anion Gap 9 (4-12) mmol/L BUN 24 H (7-17) mg/dL Creatinine 0.91 (0.7-1.0) mg/dL Estim Creat Clear Calc Not Reportable Estimated GFR 59 (59 - ) Glucose 101 (65-110) mg/dL Calcium 8.9 (8.4-10.2) mg/dL Total Bilirubin 0.5 (0.2-1.3) mg/dL AST 20 (14-36) U/L ALT 12 (6-35) U/L Alkaline Phosphatase 82 (38-126) U/L Troponin I < 0.012 Cancelled (0.000-0.034) ng/mL NT-Pro-B Natriuret Pep 118 H (19.9-100) pg/mL Total Protein 6.0 L (6.3-8.2) g/dL Albumin 3.5 (3.5-5.1) g/dL Lipase 76 (23-300) U/L Urine Color Yellow (Yellow) Urine Appearance Cloudy H (Clear) Urine pH 6.0 (5.0-9.0) Ur Specific [place] 1.022 (1.001-1.035) Urine Protein Negative (Negative) mg/dL Urine Glucose (UA) Negative (Negative) mg/dL Urine Ketones Trace H (Negative) mg/dL Ur Blood (Man) Negative (Negative) Urine Nitrate Negative (Negative) Urine Bilirubin Negative (Negative) Urine Urobilinogen 1.0 (<2.0) mg/dL Add Ur Microanalysis Reviewed Leukocyte Esterase Rfl Negative (Negative) SOO/UL Urine RBC 6-10 H (0-2) /hpf Urine WBC 0-5 (0-3) /hpf Ur Squamous Epith Cells None seen (Few) /hpf Urine Bacteria None seen /hpf Urine Casts 0-2 Influenza A (RT-PCR) Negative (Negative) Influenza B (RT-PCR) Negative (Negative) RSV (RT-PCR) Negative (Negative) SARS-CoV-2 RNA (RT-PCR) Negative (Negative) Discharge Plan Discharge Clinical Impression: CAP (community acquired pneumonia) Qualifiers: Laterality: left Lung location: upper lobe of lung Qualified Code(s): J18.9 - Pneumonia, unspecified organism Hematuria Qualifiers: Hematuria type: benign essential microscopic Qualified Code(s): R31.1 - Benign essential microscopic hematuria Patient Disposition: Home, Self-Care Condition: Stable Instructions: Antibiotic Form, Hematuria (ED), Community Acquired Pneumonia (DC) Additional Instructions: Your evaluated in the emergency department with concerns for pneumonia. Your workup does show concerns for pneumonia. Your also found a blood in your urine. I prescribed 2 antibiotics, please take these as directed. Please follow-up closely with her primary care provider. Return to the emergency department if you develop difficulty breathing, chest pain, fever of 100.4 or higher, you are unable to tolerate food or fluids, or other concerning symptoms. Patient Language: Georgian Prescriptions: New cefdinir 300 mg capsule 300 mg PO Q12H Qty: 14 0RF azithromycin 250 mg tablet See Rx Instructions .ROUTE .COMPLEX Qty: 6 0RF Rx Instructions: For 250 mg dose pack: take 500 mg today (day 1), then 250 mg for 4 days (days 2-5) No Action trazodone 50 mg tablet 50 mg PO QHS omeprazole 20 mg capsule,delayed release(DR/EC) 20 mg PO DAILY montelukast 10 mg tablet 10 mg PO QHS ipratropium bromide 21 mcg (0.03 %) spray,non-aerosol 2 spray INTRANASAL BID memantine 10 mg tablet 10 mg PO DAILY loratadine 10 mg tablet 10 mg PO DAILY azelastine 137 mcg (0.1 %) spray,non-aerosol 2 spray INTRANASAL DAILY cephalexin 500 mg capsule 500 mg PO Q12H 7 Days Qty: 14 0RF doxycycline hyclate 100 mg tablet 100 mg PO Q12H Qty: 9 0RF amoxicillin 875 mg tablet 875 mg PO Q12H Qty: 9 0RF Follow-up/Referrals: Hilda,Alyssa Gonsalez, TOWER FOREMAN [Primary Care Provider] -
[2024-10-18 12:03] LABS: Basophils Percent Auto 0.8 % (0.2-1.2); Eosinophils Percent Auto 0.2 % (0-4.4); Hematocrit 32.9 % (37.0-47.0); Hemoglobin 10.1 g/dL (12.0-15.0); Immature Granulocyte Absolute 0.01 K/mm3 (0.00-0.031); Immature Granulocyte Percent A 0.2 % (0-0.5); Lymphocytes Absolute Auto 1.49 K/mm3 (0.9-3.2); Mean Corpuscular HGB Conc 30.7 g/dl (32-36); Mean Corpuscular Hemoglobin 25.1 pg (26-34); Mean Corpuscular Volume 81.6 fl (80-100); Mean Platelet Volume 8.5 fl (7.4-10.4); Monocytes Absolute Auto 0.4 K/mm3 (0.1-0.6); Monocytes Percent Auto 7.8 % (2.6-8.5); Neutrophils Absolute Auto 3.2 K/mm3 (1.3-6.7); Platelet Count Result 258 k/mm3 (150-375); Red Blood Count 4.03 M/mm3 (4.2-5.4); White Blood Count 5.1 K/mm3 (4.5-10.0)
[2024-10-18 12:12] LABS: Alanine Aminotransferase 12 U/L (6-35); Albumin Level 3.5 g/dL (3.5-5.1); Alkaline Phosphatase 82 U/L (38-126); Anion Gap 9 mmol/L (4-12); Aspartate Amino Transferase 20 U/L (14-36); Bilirubin,Total 0.5 mg/dL (0.2-1.3); Blood Urea Nitrogen 24 mg/dL (7-17); Calcium 8.9 mg/dL (8.4-10.2); Carbon Dioxide 25 mmol/L (22-30); Chloride 106 mmol/L (98-107); Estimated Glomerular Filt Rate 59; Glucose 101 mg/dL (65-110); Potassium 4.1 mmol/L (3.4-5.0); Sodium 140 mmol/L (137-145)
[2024-10-18 12:40] LABS: Influenza A QL RT-PCR Negative (Negative); Influenza B QL RT-PCR Negative (Negative); RSV RNA, RT-PCR Negative (Negative); SARS-CoV-2 RNA PCR Negative (Negative)
[2024-10-18 13:14] LABS: Lipase 76 U/L (23-300)
[2024-10-18 13:27] LABS: NT Pro B Type Natriuretic Pept 118 pg/mL (19.9-100); Troponin I < 0.012 ng/mL (0.000-0.034)
[2024-10-18 13:32] LABS: INR 1.1; Partial Thromboplastin Time 27.8 Seconds (22.3-36.8); Prothrombin Time 14.7 Seconds (11.1-14.7)
[2024-10-18 13:33] LABS: Add Urine Microscopic? YES; Appearance Urine Cloudy (Clear); Bacteria Urine None Seen /hpf; Bilirubin Urine Negative (Negative); Blood Urine Negative (Negative); Color Urine Yellow (Yellow); Glucose Urine UA Negative (Negative); Ketones Urine Trace mg/dL (Negative); Leukocyte Esterase Ur Negative LEU/UL (Negative); Need Manual Microscopic Reviewed; Nitrate Urine Negative (Negative); Non Pathogenic Casts 0-2; Protein Urine Negative (Negative); Specific Grav Ur 1.022 (1.001-1.035); Squamous Epithelial Cell Urine None Seen /hpf (Few); WBC Urine 0-5 /hpf (0-3)
[2024-10-18] MEDS: CEFDINIR 300 MG CAPSULE PO (14:27)
[2024-10-18] MEDS: AZITHROMYCIN 250 MG TABLET 500 MG PO (14:27)
--- OUTSIDE RECORDS SUMMARY | 2024-10-20 18:01 | XMS_ITS | Patient Health Summary ---
Author Organization [facility] Address [address] [place] [address] Care Team Providers Care Wire Web Worker Name Role Phone Unavailable Primary Care Provider Unavailabl e Note from [facility],non-owned Affiliates and Associated Physician Practices is amultiple site organization consisting of ambulatory clinics and hospital sitesin [place], [place], [place] and [place]. This disclosure is being madepursuant to the Care Everywhere program and may not contain all information available regarding this patient. Last updated 18.[facility] Social History Tobacco Use Types Packs/Day Years Used Date Smoking Tobacco: Never Assessed Sex and Gender Information Value Date Recorded Sex Assigned at Not on file Gender Identity Not on file Sexual Orientation Not on file
--- OUTSIDE RECORDS SUMMARY | 2024-10-20 18:01 | XMS_ITS | Clinical Summary ---
Author Organization [facility] Address [address] [place] [address] Care Team Providers Care Inspector Agricultural Commodities Name Role Phone Unavailable Primary Care Provider Unavailabl e Source Comments [facility],non-owned Affiliates and Associated Physician Practices is amultiple site organization consisting of ambulatory clinics and hospital sitesin [place], [place] and [place]. This disclosure is being madepursuant to the Care Everywhere program and may not contain all information available regarding this patient. Last updated 18.[facility] [employer] Social History Tobacco Use Types Packs/Day Years Used Date Smoking Tobacco: Never Assessed Sex and Gender Information Value Date Recorded Sex Assigned at Not on file Gender Identity Not on file Sexual Orientation Not on file Plan of Treatment Health Maintenance Due Date Last Done Comments BONE DENSITY TESTING 1940 DTAP/TDAP/TD VACCINES (1 - Tdap) 1959 PNEUMOCOCCAL VACCINE 50+ (1 of 1 - PCV) 1990 ZOSTER VACCINE (1 of 2) 1990 Respiratory Syncytial Virus (RSV) Vaccine Pt: or over 60 yrs (1 - 1-dose 75+ series) 2015 COVID-19 VACCINE ( - 2023-2 5 season) 2024 INFLUENZA VACCINE (#1) 2024 DEPRESSION SCREENING 09/28/2024 HEPATITIS B VACCINE Aged Out No longe r eligible based on patient's age to complete this topic HIB VACCINE Aged Out No longer eligi ble based on patient's age to complete this topic HPV VACCINE Aged Out No longer eligi ble based on patient's age to complete this topic MENINGOCOCCAL (Group B) VACCINE Aged Out No longer eligible based on patient's age to complete this topic MENINGOCOCCAL VACCINE Aged Out No dorita courtney eligible based on patient's age to complete this topic
--- OUTSIDE RECORDS SUMMARY | 2024-10-20 18:01 | XMS_ITS | Referral Summary ---
Author Organization [facility] Address [address] [place] [address] Care Team Providers Care Hand Coke Drawer Name Role Phone Unavailable Primary Care Provider Unavailabl e Source Comments [facility],non-owned Affiliates and Associated Physician Practices is amultiple site organization consisting of ambulatory clinics and hospital sitesin [place], [place], [place] and [place]. This disclosure is being madepursuant to the Care Everywhere program and may not contain all information available regarding this patient. Last updated 18.[facility] [employer] Social History Tobacco Use Types Packs/Day Years Used Date Smoking Tobacco: Never Assessed Sex and Gender Information Value Date Recorded Sex Assigned at Not on file Gender Identity Not on file Sexual Orientation Not on file Plan of Treatment Not on file
--- OUTSIDE RECORDS SUMMARY | 2024-10-20 18:02 | XMS_ITS | Encounter Summary ---
Author Organization [facility] Address [facility] [facility] [place], [place] [address] [place] [address] Care Team Providers Care Home Health Care Provider Name Role Phone Montana Enriquez MD Unavailable [phone] Emilia Alarcon MD Primary Care Provider + [phone] Linda Lynn TILE PICKER Primary Care Provider Nasima Meneses RN Unavailable [phone] Priti Manzanares RN Unavailable Unavailab Esther Hathaway Primary Care Provider + Elin Morales RN Unavailable + Elin Morales RN Unavailable + Reshma Salguero PA-C Primary Care Provider + Alyssa Stevens NP Primary Care Provider + Elin Morales RN Unavailable + Elin Morales RN Unavailable + Elin Morales RN Unavailable + Encounter Details Date Type Department Care Team (Late st Contact Info) Description 06/12/2016 Abstract [facility] CONVERSION [address] [place] [address] , Mehreen Nix MD Social History Tobacco Use Types Packs/Day Years Used Date Smoking Tobacco: Never Comments Unknown Sex and Gender Information Value Date Recorded Sex Assigned at Female 09/09/2019 11:15 AM [employer]IC[employer] Legal Sex Female 9:30 PM CDT Gender Identity Female 09/09/2019 11:15 AM [employer]IC[employer] Sexual Orientation Straight 09/09/2019 11 :15 AM [employer] OFFIC[employer] documented as of this encounter Plan of Treatment Upcoming Encounters Date Type Department Care Team (Late st Contact Info) Description 10/31/2024 8:20 AM [employer] OFFICER Office Visit [facility] [address] [phone] Leo Gibson DO [address] [facility] [address] [place] [address] 10/31/2024 1:00 PM [employer] Office Visit [facility] Family & Internal Medicine - [address] [phone] Alyssa Stevens, TILE PICKER [address] [place], [place] [id number] 12/13/2024 10:00 AM CDT Office Visit [facility] Family & Internal [address] [phone] Alyssa Stevens, TILE PICKER [address] [place] [address] documented as of this encounter Visit Diagnoses Not on filedocumented in this encounter Additional Health Concerns Infection Onset Date Last Indicated Resolved Time COVID-19 Rule Out 07/18/2020 07/18/2020 07/19/2020 10:50 PM CDT COVID-19 Rule Out 08/22/2020 08/23/2020 08/23/2020 7:46 AM [employer] COVID-19 Rule Out 09/03/2020 09/03/2020 09/04/2020 11:07 AM [employer] COVID-19 Rule Out 04/23/2021 04/23/2021 04/23/2021 2:48 PM CDT COVID-19 Rule Out 06/07/2021 06/07/2021 06/08/2021 10:20 PM CDT COVID-19 Rule Out 11/04/2021 11/04/2021 11/04/2021 11:19 AM [employer] COVID-19 Rule Out 10/01/2022 10/01/2022 10/01/2022 2:02 PM [employer] COVID-19 Rule Out 10/01/2022 10/01/2022 10/01/2022 2:07 PM [employer] COVID-19 Rule Out 10/01/2022 10/01/2022 10/02/2022 6:34 PM [employer] OFF[employer] COVID-19 Rule Out 12/14/2022 12/14/2022 12/14/2022 5:41 PM CDT COVID-19 Rule Out 05/21/2023 05/21/2023 05/21/2023 11:38 AM CDT COVID-19 Rule Out 09/10/2023 09/10/2023 09/10/2023 9:32 AM [employer] COVID-19 Confirmed 09/10/2023 09/10/2023 12:32 AM [employer] COVID-19 Rule Out 12/13/2023 12/13/2023 12/13/2023 8:23 AM CDT COVID-19 Rule Out 01/27/2024 01/27/2024 01/27/2024 4:20 PM CDT COVID-19 Rule Out 04/12/2024 04/12/2024 04/12/2024 5:24 PM CDT COVID-19 Rule Out 2024 2024 2024 2:40 PM CDT documented as of this encounter Care Teams Home Health Care Provider Relationship Specialty Start Date End Date Emilia Alarcon MD [address] [address] PCP - General INTERNAL MEDICINE 02/27/16 03/22/19 Linda Lynn, TILE PICKER [facility]. [facility] [address] [place] [address] PCP - General NURSE PRACTITIONER 03/23/19 08/25/20 [place] [address] [place] [address] PCP - General PHYSICIAN CYLINDER LOADER 08/26/20 05/28/23 Reshma Salguero PA-C [address] [place] [address] PCP - General PHYSICIAN CYLINDER LOADER 05/29/23 08/16/23 [place] [address] [place] [address] PCP - General Nurse Practitioner [facility] 08/17/23 Montana Enriquez MD [facility]. [facility] [address] [place] [address] [place] [employer] CARDIOVASCULAR DISEASE 02/27/16 Nasima Coates RN [address] [place], [place] [phone] Sales Floor Manager (Ambulatory) REGISTERED NURSE 04/12/19 08/23/20 Priti Manzanares, nephrology nurse (Ambulatory) REGISTERED NURSE 08/24/20 03/14/21 Elin Morales, RN [address] [place] [address] Sales Floor Manager (Ambulatory) REGISTERED NURSE 04/25/21 11/25/21 Elin Morales, RN [address] [place] [address] Sales Floor Manager (Ambulatory) REGISTERED NURSE 03/09/23 04/08/23 Elin Morales RN [address] [place], [place] [address]84 Sales Floor Manager (Ambulatory) REGISTERED NURSE 12/14/23 01/05/24 Elin Morales RN [address] [place], [place] [address] Sales Floor Manager (Ambulatory) REGISTERED NURSE 01/06/24 01/11/24 Elin Morales RN [address] [place], [place] [phone] Sales Floor Manager (Ambulatory) REGISTERED NURSE 05/10/24 documented as of this encounter
--- OUTSIDE RECORDS SUMMARY | 2024-10-20 18:02 | XMS_ITS | Encounter Summary ---
Author Organization [facility] Address Community [facility]6 [facility] [place]. [place], [place] [address] [place] [address] Care Team Providers Care Animal Care Giver Name Role Phone Montana Enriquez MD Unavailable [phone] Emilia Alarcon MD Primary Care Provider + [phone] Linda Lynn MEDICAL RECORD LIBRARIAN Primary Care Provider Nasima Meneses RN Unavailable +[phone] Priti Manzanares RN Unavailable Unavailab Esther Hathaway Primary Care Provider + Elin Morales RN Unavailable + Elin Morales RN Unavailable + Reshma Salguero PA-C Primary Care Provider + Alyssa Stevens NP Primary Care Provider + Elin Morales RN Unavailable + Elin Morales RN Unavailable + Elin Morales RN Unavailable + Encounter Details Date Type Department Care Team (Late st Contact Info) Description 03/17/2017 Abstract [facility] AT [address] [address] Ritchie Ye MA Social History Tobacco Use Types Packs/Day Years Used Date Smoking Tobacco: Never Alcohol Use Standard Drinks/Week Comments No 0 (1 standard drink = 0.6 oz pur e alcohol) Comments Unknown Sex and Gender Information Value Date Recorded Sex Assigned at Female 09/09/2019 11:15 AM ANESTHETIC ASSISTANT Legal Sex Female 9:30 PM CDT Gender Identity Female 09/09/2019 11:15 AM ANESTHETIC ASSISTANT Sexual Orientation Straight 09/09/2019 11 :15 AM ANESTHETIC ASSISTANT Occupation Industry Job Start Date Job End Date Not on file Not on file Not on file Not on file documented as of this encounter Plan of Treatment Upcoming Encounters Date Type Department Care Team (Late st Contact Info) Description 10/31/2024 8:20 AM ANESTHETIC ASSISTANT Office Visit [facility] [address] [phone] Leo Gibson DO [address] [facility] [address] [place] [address] 10/31/2024 1:00 PM ANESTHETIC ASSISTANT Office Visit [facility] Family & Internal Medicine [address] [phone] [place] [address] [email or web address] [place] [address] 12/13/2024 10:00 AM CDT Office Visit [facility] Family & Internal Medicine [address] [phone] [place] [address] [email or web address] [address] [place], [place] [id number] documented as of this encounter Procedures Procedure Name Priority Date/Time Associated Diagnosis Comments FOLATE (OUTSIDE LAB) Routine 03/04/2018 CBC (OUTSIDE LAB) Routine 03/04/2018 COMPREHENSIVE METABOLIC PANEL Routine 03/04/2018 IRON BINDING TEST Routine 03/04/2018 IRON Routine 03/04/2018 FERRITIN Routine 03/04/2018 CBC (OUTSIDE LAB) Routine 02/16/2017 BASIC METABOLIC PANEL Routine 01/15/2017 documented in this encounter Results * FOLATE (OUTSIDE LAB) (03/04/2018) FOLATE 6.9 03/04/2018 [facility] Abstract LAB-OUTSIDE/ABSTRACTED Final Result * FERRITIN (03/04/2018) FERRITIN 231 03/04/2018 [facility] Abstract LABORATORY Final Result * IRON BINDING TEST (03/04/2018) IRON BINDING CAPACITY 205 03/04/2018 [facility] Abstract LABORATORY Final Result * IRON (03/04/2018) IRON 42 03/04/2018 [facility] Abstract LABORATORY Final Result * COMPREHENSIVE METABOLIC PANEL (03/04/2018) SODIUM S/P/B 140 POTASSIUM S/P/B 4.0 CO2 25.7 CHLORIDE S/P/B 105 GLUCOSE 89 mg/dL CALCIUM S/P/B 9.1 BUN 18 CREATININE S/P/B 0.97 0.5 - 1.0 EGFR AFR. AMER. 65 <=90 EGFR NON-AFR. AMER. 56 <=90 ALKALINE PHOSPHATASE S/P/B 82 ALT 13 AST 14 BILIRUBIN TOTAL S/P/B 0.7 ALBUMIN S/P/B 3.7 3.5 - 5.0 TOTAL PROTEIN S/P/B 6.4 03/04/2018 [facility] Abstract LABORATORY Final Result * CBC (OUTSIDE LAB) (03/04/2018) WBC 5.8 HGB 13.3 HCT 41.6 PLT 172 03/04/2018 [facility] Abstract LAB-OUTSIDE/ABSTRACTED Final Result * CBC (OUTSIDE LAB) (02/16/2017) WBC 9.1 HGB 10.7 HCT 33.7 PLT 301 02/16/2017 [facility] Abstract LAB-OUTSIDE/ABSTRACTED Final Result * BASIC METABOLIC PANEL (01/15/2017) SODIUM S/P/B 137 POTASSIUM S/P/B 3.9 CO2 23 CHLORIDE S/P/B 109 GLUCOSE 83 CALCIUM S/P/B 8.0 BUN 11 CREATININE S/P/B 0.75 0.5 - 1.0 EGFR NON-AFR. AMER. >60 <=90 01/15/2017 [facility] Abstract LABORATORY Final Result documented in this encounter Visit Diagnoses Not on filedocumented in this encounter Additional Health Concerns Infection Onset Date Last Indicated Resolved Time COVID-19 Rule Out 07/18/2020 07/18/2020 07/19/2020 10:50 PM CDT COVID-19 Rule Out 08/22/2020 08/23/2020 08/23/2020 7:46 AM ANESTHETIC ASSISTANT COVID-19 Rule Out 09/03/2020 09/03/2020 09/04/2020 11:07 AM ANESTHETIC ASSISTANT COVID-19 Rule Out 04/23/2021 04/23/2021 04/23/2021 2:48 PM CDT COVID-19 Rule Out 06/07/2021 06/07/2021 06/08/2021 10:20 PM CDT COVID-19 Rule Out 11/04/2021 11/04/2021 11/04/2021 11:19 AM ANESTHETIC ASSISTANT COVID-19 Rule Out 10/01/2022 10/01/2022 10/01/2022 2:02 PM ANESTHETIC ASSISTANT COVID-19 Rule Out 10/01/2022 10/01/2022 10/01/2022 2:07 PM ANESTHETIC ASSISTANT COVID-19 Rule Out 10/01/2022 10/01/2022 10/02/2022 6:34 PM ANESTHETIC ASSISTANT COVID-19 Rule Out 12/14/2022 12/14/2022 12/14/2022 5:41 PM CDT COVID-19 Rule Out 05/21/2023 05/21/2023 05/21/2023 11:38 AM CDT COVID-19 Rule Out 09/10/2023 09/10/2023 09/10/2023 9:32 AM ANESTHETIC ASSISTANT COVID-19 Confirmed 09/10/2023 09/10/2023 12:32 AM ANESTHETIC ASSISTANT COVID-19 Rule Out 12/13/2023 12/13/2023 12/13/2023 8:23 AM CDT COVID-19 Rule Out 01/27/2024 01/27/2024 01/27/2024 4:20 PM CDT COVID-19 Rule Out 04/12/2024 04/12/2024 04/12/2024 5:24 PM CDT COVID-19 Rule Out 2024 2024 2024 2:40 PM CDT documented as of this encounter Care Teams Animal Care Giver Relationship Specialty Start Date End Date Emilia Alarcon MD [address] [address] PCP - General INTERNAL MEDICINE 02/27/16 03/22/19 Linda Lynn MEDICAL RECORD LIBRARIAN [address] [place] [address] [place] [address] PCP - General NURSE PRACTITIONER 03/23/19 08/25/20 [place] [address] [facility] [place] [address] PCP - General PHYSICIAN GROUP WORK PROGRAM DIRECTOR 08/26/20 05/28/23 Reshma Salguero PA-C [address] [facility] [address] [place] [address] PCP - General PHYSICIAN GROUP WORK PROGRAM DIRECTOR 05/29/23 08/16/23 [place] [address] [facility] [address] [place] [address] PCP - General Nurse Practitioner Family 08/17/23 Montana Enriquez MD [address] [address] [place] Internal Control Consultant CARDIOVASCULAR DISEASE 02/27/16 Nasima Coates, RN [address] [place], [place] [phone] Flavoring Oil Filterer (Ambulatory) REGISTERED NURSE 04/12/19 08/23/20 Priti Manzanares nailhead puncher (Ambulatory) REGISTERED NURSE 08/24/20 03/14/21 Elin Morales, RN [address] [place], [place] [address] Flavoring Oil Filterer (Ambulatory) REGISTERED NURSE 04/25/21 11/25/21 Elin Morales, RN [address] [place] [address] Flavoring Oil Filterer (Ambulatory) REGISTERED NURSE 03/09/23 04/08/23 Elin Morales RN [address] [place] [address] Flavoring Oil Filterer (Ambulatory) REGISTERED NURSE 12/14/23 01/05/24 Elin Morales RN [address] [place] [address] Flavoring Oil Filterer (Ambulatory) REGISTERED NURSE 01/06/24 01/11/24 Elin Morales RN [address] [place] [address] Flavoring Oil Filterer (Ambulatory) REGISTERED NURSE 05/10/24 documented as of this encounter
--- OUTSIDE RECORDS SUMMARY | 2024-10-20 18:02 | XMS_ITS | Encounter Summary ---
Author Organization [facility] Address Psychiatric hospital6 [facility]. [place], [place] [address] [place] [address] Care Team Providers Care Lathe Turner Name Role Phone Montana Enriquez MD Unavailable [phone] Linda Lynn NP Primary Care Provider Nasima Meneses RN Unavailable [phone] Priti Manzanares RN Unavailable Unavailab Esther Hathaway Primary Care Provider + [phone] Elin Morales RN Unavailable + Elin Morales RN Unavailable + Reshma Salguero PA-C Primary Care Provider [phone] Alyssa Stevens NP Primary Care Provider [phone] Elin Morales RN Unavailable + Elin Morales RN Unavailable + Elin Morales RN Unavailable + Reason for Visit * Reason Onset Date Comments Hospital Follow Up 04/25/2019 Encounter Details Date Type Department Care Team (Late st Contact Info) Description 04/25/2019 Patient Outreach [facility] Medical [facility] Family & Sports Medicine - [address], [facility] [place] [address] Linda Lynn, ASHLEY Hospital Follow Up Social History Tobacco Use Types Packs/Day Years Used Date Smoking Tobacco: Never Smokeless Tobacco: Never Alcohol Use Standard Drinks/Week Comments No 0 (1 standard drink = 0.6 oz pur e alcohol) PHQ-2 Answer Date Recorded PHQ-2 Score 1 02/01/2019 Comments No Sex and Gender Information Value Date Recorded Sex Assigned at Female 09/09/2019 11:15 AM 3D DESIGNER Legal Sex Female 9:30 PM CDT Gender Identity Female 09/09/2019 11:15 AM 3D DESIGNER Sexual Orientation Straight 09/09/2019 11 :15 AM 3D DESIGNER Occupation Industry Job Start Date Job End Date Not on file Not on file Not on file Not on file documented as of this encounter Functional Status * RETIRED Are you deaf or do you have serious difficulty hearing Answer Date of Assessment Author Status No 03/26/2019 3:44 PM CDT Activ e * RETIRED Are you blind or do you have serious difficulty seeing, even when wearing glasses? Answer Date of Assessment Author Status No 03/26/2019 3:44 PM CDT Activ e * Do you have serious difficulty walking or climbing stairs? Answer Date of Assessment Author Status Yes 03/26/2019 3:44 PM MARYANNET Lou Cabrera RN Active * Do you have difficulty dressing or bathing? Answer Date of Assessment Author Status No 03/26/2019 3:44 PM MARYANNET Lou Cabrera RN Active * Because of a physical, mental, or emotional condition, do you have difficulty doing errands alone such as visiting a doctor's office or shopping? Answer Date of Assessment Author Status No 03/26/2019 3:44 PM Lou Graham RN Active documented as of this encounter Mental Status * Because of a physical, mental, or emotional condition, do you have serious difficulty concentrating, remembering, or making decisions? Answer Entry Date Author Status No 03/26/2019 3:44 PM Lou Graham RN Active documented in this encounter Plan of Treatment Upcoming Encounters Date Type Department Care Team (Late st Contact Info) Description 10/31/2024 8:20 AM 3D DESIGNER Office Visit [facility] Medical [facility] Pul[facility] Specialty Clinic [address] [phone] Leo Gibson DO 3 [facility] [address] [place] [address] 10/31/2024 1:00 PM 3D DESIGNER Office Visit [facility] Family & Internal Medicine [address] [phone] Alyssa Stevens, ASHLEY [address] [facility] [address] [place], [place] [phone] 12/13/2024 10:00 AM CDT Office Visit [facility] Family & Internal [address] [address] Alyssa Stevens, ASHLEY [address] [facility] [address] [address] documented as of this encounter Goals Goal Patient Goal Type Associated Problems Recent Progress Patient-Stated? Author Outpatient Goal Care Plan headache No Nasima Coates, RN Establish Plan for Symptom Monitoring Care Plan headache No Nasima Coates, RN documented as of this encounter Visit Diagnoses Not on filedocumented in this encounter Additional Health Concerns Active Problems Noted Date Diagnosed Date headache 03/28/2019 Infection Onset Date Last Indicated Resolved Time COVID-19 Rule Out 07/18/2020 07/18/2020 07/19/2020 10:50 PM CDT COVID-19 Rule Out 08/22/2020 08/23/2020 08/23/2020 7:46 AM 3D DESIGNER COVID-19 Rule Out 09/03/2020 09/03/2020 09/04/2020 11:07 AM 3D DESIGNER COVID-19 Rule Out 04/23/2021 04/23/2021 04/23/2021 2:48 PM CDT COVID-19 Rule Out 06/07/2021 06/07/2021 06/08/2021 10:20 PM CDT COVID-19 Rule Out 11/04/2021 11/04/2021 11/04/2021 11:19 AM 3D DESIGNER COVID-19 Rule Out 10/01/2022 10/01/2022 10/01/2022 2:02 PM 3D DESIGNER COVID-19 Rule Out 10/01/2022 10/01/2022 10/01/2022 2:07 PM 3D DESIGNER COVID-19 Rule Out 10/01/2022 10/01/2022 10/02/2022 6:34 PM 3D DESIGNER COVID-19 Rule Out 12/14/2022 12/14/2022 12/14/2022 5:41 PM CDT COVID-19 Rule Out 05/21/2023 05/21/2023 05/21/2023 11:38 AM CDT COVID-19 Rule Out 09/10/2023 09/10/2023 09/10/2023 9:32 AM 3D DESIGNER COVID-19 Confirmed 09/10/2023 09/10/2023 12:32 AM 3D DESIGNER COVID-19 Rule Out 12/13/2023 12/13/2023 12/13/2023 8:23 AM CDT COVID-19 Rule Out 01/27/2024 01/27/2024 01/27/2024 4:20 PM CDT COVID-19 Rule Out 04/12/2024 04/12/2024 04/12/2024 5:24 PM CDT COVID-19 Rule Out 2024 2024 2024 2:40 PM CDT Assessment Noted Time PHQ-9 Depression Total Score: 10 019 8:29 AM CDT documented as of this encounter Care Teams Lathe Turner Relationship Specialty Start Date End Date Linda Lynn NP [address] [address] PCP - General NURSE PRACTITIONER 03/23/19 08/25/20 [place] [address] [place] [address] PCP - General PHYSICIAN SCALLOP RAKER 08/26/20 05/28/23 Reshma Salguero PA-C [address] [id number] PCP - General PHYSICIAN SCALLOP RAKER 05/29/23 08/16/23 [place] [address] [facility] [address] [place], [place] [phone] PCP - General Nurse Practitioner Family 08/17/23 Montana Enriquez MD [address] [address] [place] Plant Maintenance Mechanic CARDIOVASCULAR DISEASE 02/27/16 Nasima Coates RN [address] [place] [address] Scrub Tech (Ambulatory) REGISTERED NURSE 04/12/19 08/23/20 Priti Manzanares, child welfare specialist (Ambulatory) REGISTERED NURSE 08/24/20 03/14/21 Elin Morales, RN [address] [place] [address] Scrub Tech (Ambulatory) REGISTERED NURSE 04/25/21 11/25/21 Elin Morales, RN [address] [place] [address] Scrub Tech (Ambulatory) REGISTERED NURSE 03/09/23 04/08/23 Elin Morales, RN [address] [place] [address] Scrub Tech (Ambulatory) REGISTERED NURSE 12/14/23 01/05/24 Elin Morales, RN [address] [place] [address] Scrub Tech (Ambulatory) REGISTERED NURSE 01/06/24 01/11/24 Elin Morales, RN [address] [place], [place] [address] Scrub Tech (Ambulatory) REGISTERED NURSE 05/10/24 documented as of this encounter
--- OUTSIDE RECORDS SUMMARY | 2024-10-20 18:02 | XMS_ITS | Encounter Summary ---
Author Organization [facility] Address [facility] [place], [place] [address] [place] [address] Care Team Providers Care Agricultural Education Instructor Name Role Phone Montana Enriquez MD Unavailable [phone] Emilia Alarcon MD Primary Care Provider + [phone] Linda Lynn BLOCK MAKING MACHINE OPERATOR Primary Care Provider Nasima Meneses RN Unavailable [phone] Priti Manzanares RN Unavailable Unavailab Esther Hathaway Primary Care Provider + Elin Morales RN Unavailable + Elin Morales RN Unavailable + Reshma Salguero PA-C Primary Care Provider + Alyssa Stevens NP Primary Care Provider + Elin Morales RN Unavailable + Elin Morales RN Unavailable + Elin Morales RN Unavailable + Encounter Details Date Type Department Care Team (Late st Contact Info) Description 05/21/2016 Abstract [facility] CONVERSION [address] [place] [address] , Mehreen Nix MD Social History Tobacco Use Types Packs/Day Years Used Date Smoking Tobacco: Never Comments Unknown Sex and Gender Information Value Date Recorded Sex Assigned at Female 09/09/2019 11:15 AM BUCKET WASH OPERATOR Legal Sex Female 9:30 PM CDT Gender Identity Female 09/09/2019 11:15 AM BUCKET WASH OPERATOR Sexual Orientation Straight 09/09/2019 11 :15 AM BUCKET WASH OPERATOR documented as of this encounter Plan of Treatment Upcoming Encounters Date Type Department Care Team (Late st Contact Info) Description 10/31/2024 8:20 AM BUCKET WASH OPERATOR Office Visit [facility] Pul[facility] Specialty Clinic [address] [phone] Leo Gibson DO 3 [facility] [address] [place] [address] 10/31/2024 1:00 PM BUCKET WASH OPERATOR Office Visit [facility] Family & Internal Medicine - [address] [phone] Alyssa Stevens, BLOCK MAKING MACHINE OPERATOR [address] [place], [place] [phone] 12/13/2024 10:00 AM CDT Office Visit [facility] Family & Internal [address] [phone] Alyssa Stevens, BLOCK MAKING MACHINE OPERATOR [address] [address] documented as of this encounter Visit Diagnoses Not on filedocumented in this encounter Additional Health Concerns Infection Onset Date Last Indicated Resolved Time COVID-19 Rule Out 07/18/2020 07/18/2020 07/19/2020 10:50 PM CDT COVID-19 Rule Out 08/22/2020 08/23/2020 08/23/2020 7:46 AM BUCKET WASH OPERATOR COVID-19 Rule Out 09/03/2020 09/03/2020 09/04/2020 11:07 AM BUCKET WASH OPERATOR COVID-19 Rule Out 04/23/2021 04/23/2021 04/23/2021 2:48 PM CDT COVID-19 Rule Out 06/07/2021 06/07/2021 06/08/2021 10:20 PM CDT COVID-19 Rule Out 11/04/2021 11/04/2021 11/04/2021 11:19 AM BUCKET WASH OPERATOR COVID-19 Rule Out 10/01/2022 10/01/2022 10/01/2022 2:02 PM BUCKET WASH OPERATOR COVID-19 Rule Out 10/01/2022 10/01/2022 10/01/2022 2:07 PM BUCKET WASH OPERATOR COVID-19 Rule Out 10/01/2022 10/01/2022 10/02/2022 6:34 PM BUCKET WASH OPERATOR COVID-19 Rule Out 12/14/2022 12/14/2022 12/14/2022 5:41 PM CDT COVID-19 Rule Out 05/21/2023 05/21/2023 05/21/2023 11:38 AM CDT COVID-19 Rule Out 09/10/2023 09/10/2023 09/10/2023 9:32 AM BUCKET WASH OPERATOR COVID-19 Confirmed 09/10/2023 09/10/2023 12:32 AM BUCKET WASH OPERATOR COVID-19 Rule Out 12/13/2023 12/13/2023 12/13/2023 8:23 AM CDT COVID-19 Rule Out 01/27/2024 01/27/2024 01/27/2024 4:20 PM CDT COVID-19 Rule Out 04/12/2024 04/12/2024 04/12/2024 5:24 PM CDT COVID-19 Rule Out 2024 2024 2024 2:40 PM CDT documented as of this encounter Care Teams Agricultural Education Instructor Relationship Specialty Start Date End Date Emilia Alarcon MD [address] [address] PCP - General INTERNAL MEDICINE 02/27/16 03/22/19 Linda Lynn, BLOCK MAKING MACHINE OPERATOR [facility] [address] [place] [address] PCP - General NURSE PRACTITIONER 03/23/19 08/25/20 [place] [address] [place] [address] PCP - General PHYSICIAN RESEARCH PROGRAMMER 08/26/20 05/28/23 Reshma Salguero PA-C [address] [facility] [address] [place] [address] PCP - General PHYSICIAN RESEARCH PROGRAMMER 05/29/23 08/16/23 [place] [address] [facility] [address] [address] PCP - General Nurse Practitioner [facility] 08/17/23 Montana Enriquez MD [facility]. [facility] [address] [place] [address] Burket Aircraft Assembler CARDIOVASCULAR DISEASE 02/27/16 Nasima Coates RN [address] [place], [place] [address] Shipbuilding Draftsperson (Ambulatory) REGISTERED NURSE 04/12/19 08/23/20 Priti Manzanares, farmhand (Ambulatory) REGISTERED NURSE 08/24/20 03/14/21 Elin Morales, RN [address] [place] [address] Shipbuilding Draftsperson (Ambulatory) REGISTERED NURSE 04/25/21 11/25/21 Elin Morales, RN [address] [place] [address] Shipbuilding Draftsperson (Ambulatory) REGISTERED NURSE 03/09/23 04/08/23 Elin Morales RN [address] [place], [place] [address] Shipbuilding Draftsperson (Ambulatory) REGISTERED NURSE 12/14/23 01/05/24 Elin Morales RN [address] [place], [place] [address] Shipbuilding Draftsperson (Ambulatory) REGISTERED NURSE 01/06/24 01/11/24 Elin Morales RN [address] [place], [place] [id number] Shipbuilding Draftsperson (Ambulatory) REGISTERED NURSE 05/10/24 documented as of this encounter
--- OUTSIDE RECORDS SUMMARY | 2024-10-20 18:02 | XMS_ITS | Encounter Summary ---
Author Organization [facility] Address [facility] Formerly [facility]. [place], [place] [address] [place] [address] Care Team Providers Care Salesperson [employer] Name Role Phone Montana Enriquez MD Unavailable [phone] Linda Lynn NP Primary Care Provider Nasima Meneses RN Unavailable [phone] Priti Manzanares RN Unavailable Unavailab Esther Hathaway Primary Care Provider + [phone] Elin Morales RN Unavailable + Elin Morales RN Unavailable [phone] Reshma Salguero PA-C Primary Care Provider [phone] Alyssa Stevens NP Primary Care Provider [phone] Elin Morales RN Unavailable + Elin Morales RN Unavailable + Elin Morales RN Unavailable + Encounter Details Date Type Department Care Team (Late st Contact Info) Description 04/01/2019 Hospital Follow-up Call [facility] [place] [address] Jen Iqbal Social History Tobacco Use Types Packs/Day Years Used Date Smoking Tobacco: Never Smokeless Tobacco: Never Alcohol Use Standard Drinks/Week Comments No 0 (1 standard drink = 0.6 oz pur e alcohol) PHQ-2 Answer Date Recorded PHQ-2 Score 1 02/01/2019 Comments No Sex and Gender Information Value Date Recorded Sex Assigned at Female 09/09/2019 11:15 AM WEIGHING STATION OPERATOR Legal Sex Female 9:30 PM CDT Gender Identity Female 09/09/2019 11:15 AM WEIGHING STATION OPERATOR Sexual Orientation Straight 09/09/2019 11 :15 AM WEIGHING STATION OPERATOR Occupation Industry Job Start Date Job End [...] st Contact Info) Description 10/31/2024 8:20 AM WEIGHING STATION OPERATOR Office Visit [facility] [address] [address] Leo Gibson DO 3 [facility] [address] [place] [address] 10/31/2024 1:00 PM WEIGHING STATION OPERATOR Office Visit [facility] Family & Internal [facility] [address] [place] [phone] Alyssa Stevens, ASHLEY [address] [facility] [address] [place], [place] [id number] 12/13/2024 10:00 AM CDT Office Visit [facility] Family Internal [facility] [address] [place] [phone] [place] [address] [place], [place] [id number] documented as of this encounter Goals Goal Patient Goal Type Associated Problems Recent Progress Patient-Stated? Author Outpatient Goal Care Plan headache No Nasima Coates, RN Establish Plan for Symptom Monitoring Care Plan headache No Nasima Coates RN documented as of this encounter Visit Diagnoses Not on filedocumented in this encounter Additional Health Concerns Active Problems Noted Date Diagnosed Date headache 03/28/2019 Infection Onset Date Last Indicated Resolved Time COVID-19 Rule Out 07/18/2020 07/18/2020 07/19/2020 10:50 PM CDT COVID-19 Rule Out 08/22/2020 08/23/2020 08/23/2020 7:46 AM WEIGHING STATION OPERATOR COVID-19 Rule Out 09/03/2020 09/03/2020 09/04/2020 11:07 AM WEIGHING STATION OPERATOR COVID-19 Rule Out 04/23/2021 04/23/2021 04/23/2021 2:48 PM CDT COVID-19 Rule Out 06/07/2021 06/07/2021 06/08/2021 10:20 PM CDT COVID-19 Rule Out 11/04/2021 11/04/2021 11/04/2021 11:19 AM WEIGHING STATION OPERATOR COVID-19 Rule Out 10/01/2022 10/01/2022 10/01/2022 2:02 PM WEIGHING STATION OPERATOR COVID-19 Rule Out 10/01/2022 10/01/2022 10/01/2022 2:07 PM WEIGHING STATION OPERATOR COVID-19 Rule Out 10/01/2022 10/01/2022 10/02/2022 6:34 PM WEIGHING STATION OPERATOR COVID-19 Rule Out 12/14/2022 12/14/2022 12/14/2022 5:41 PM CDT COVID-19 Rule Out 05/21/2023 05/21/2023 05/21/2023 11:38 AM CDT COVID-19 Rule Out 09/10/2023 09/10/2023 09/10/2023 9:32 AM WEIGHING STATION OPERATOR COVID-19 Confirmed 09/10/2023 09/10/2023 12:32 AM WEIGHING STATION OPERATOR COVID-19 Rule Out 12/13/2023 12/13/2023 12/13/2023 8:23 AM CDT COVID-19 Rule Out 01/27/2024 01/27/2024 01/27/2024 4:20 PM CDT COVID-19 Rule Out 04/12/2024 04/12/2024 04/12/2024 5:24 PM CDT COVID-19 Rule Out 2024 2024 2024 2:40 PM CDT Assessment Noted Time PHQ-9 Depression Total Score: 10 019 8:29 AM CDT documented as of this encounter Care Teams Salesperson [employer] Relationship Specialty Start Date End Date Linda Lynn NP [address] [address] PCP - General NURSE PRACTITIONER 03/23/19 08/25/20 [place] [address] [place] [address] PCP - General PHYSICIAN EXECUTIVE PRODUCER 08/26/20 05/28/23 Reshma Salguero PA-C [address] [address] PCP - General PHYSICIAN EXECUTIVE PRODUCER 05/29/23 08/16/23 [place] [address] [phone] PCP - General Nurse Practitioner Family 08/17/23 Montana Enriquez MD [address] [address] [place] Security Assurance Specialist CARDIOVASCULAR DISEASE 02/27/16 [place] [address] [place] [address] Acid Washer Operator (Ambulatory) REGISTERED NURSE 04/12/19 08/23/20 Priti Manzanares tool crib attendant (Ambulatory) REGISTERED NURSE 08/24/20 03/14/21 Elin Morales, RN [address] [place] [address] Acid Washer Operator (Ambulatory) REGISTERED NURSE 04/25/21 11/25/21 Elin Morales, RN [address] [place] [address] Acid Washer Operator (Ambulatory) REGISTERED NURSE 03/09/23 04/08/23 Elin Morales, RN [address] [place] [address] Acid Washer Operator (Ambulatory) REGISTERED NURSE 12/14/23 01/05/24 Elin Morales, RN [address] [place] [address] Acid Washer Operator (Ambulatory) REGISTERED NURSE 01/06/24 01/11/24 Elin Morales, RN [address] [place] [address] Acid Washer Operator (Ambulatory) REGISTERED NURSE 05/10/24 documented as of this encounter
--- OUTSIDE RECORDS SUMMARY | 2024-10-20 18:02 | XMS_ITS | Continuity of Care Document ---
Author Organization [facility] [employer] Address [address] [place] [address] Phone Care Team Providers Care Haulage Engine Operator Name Role Phone Mayra Daniel MD Unavailable [...] Copied on Encounter [facility], [address], [place], [place], [address] , [place] tel: [phone] [facility] No Information 4 María Mayra. [facility] [place], [facility], [place], [place], [address], [place]. tel: [phone] [facility], [address], [place], [place], [address] , [place] tel:[phone] [facility] No Information 3 Maríazoe Nunez. [facility], [facility], [place], [place], [address], [place]. tel:[phone] [facility], [address], [place], [place], [address] , [place] tel: [phone] [facility] No Information 2 Maríazoe Nunez. [address] [place] [address], [place] [address], [place], [place], [address], [place]. tel:[phone] [facility], [address], [place], [address] , [place] tel: [phone] [facility] No Information 1 Maríazoe Nunez. [address] [place] [address], [place] [address], [place], [place], [address], [place]. tel:[phone] [facility], [address], [place], [place], [address] , [place] tel: [phone] [facility] No Information 1 María Mayra. [address] [place] [address], [facility], [place], [place], [address], [place]. tel:[phone] [facility], [address], [place], [address] , [place] tel: [phone] [facility] Unspecified chronic bronchitisMigrain e, unspecified without mention of intractable migraineEdemaDiso rder of bone and cartilage, unspecifiedAllerg ic rhinitis, cause unspecifiedRoutin e general medical examination at a health care facilityRoutine general medical examination at a health care facility 1 María Nunez. [address] [place] [address], [address], [place], [place], [address], [place]. [phone] Referring Provider: Mayra Gonzalez, [address] [place] [address] [address], [place], [address] . tel:[phone] [facility], [address], [place], [place], [address] , [place] tel: [phone] [facility] EdemaDisorder of bone and cartilage, unspecifiedAllerg ic rhinitis, cause unspecifiedPerson al history of colonic polypsObstructive sleep apnea (adult)(pediatric )Unspecified vitamin d deficiencyDyskine divya of esophagus 1 María Nunez. [address] [place] [address], [place] [address], [place], [place], [address], [place]. tel:[phone] [facility], [address], [place], [place], [address] , [place] tel: [phone] Conversion Department No Information 1 Conversion Doctor. [address] [place] [address], [place], [address], [place]. [facility], [address], [place], [place], [address] , [place] tel: [phone] [facility] ESOPHAGEAL REFLUXBONE & CARTILAGE DIS NOS 0 María Nunez. [address] [place] [address], [place] [address], [place], [place], [address], [place]. tel:[phone] [facility], [address], [place], [place], [address] , [place] tel: [phone] [facility] MIGRNE UNSP WO NTRC MGRN 0 Conversion Doctor. [address] [place] [address], [address], [place]. [facility], [address], [place], [place], [address] , [place] tel: [phone] [facility] LONG-TERM USE MEDS NECGLAUCOMA NOSALLERGIC RHINITIS NOS 0 Conversion Doctor. [facility] [place], [address], [place]. [facility], [address], [place], [place], [address] , [place] tel: [phone] [facility] ROUTINE MEDICAL EXAMPRSNL HST COLONIC POLYPSSCREEN LIPOID DISORDERSASTHMA NOS 3-201 0 María Nunez. [address] [place] [address], [place] [address], [place], [place], [address], [place]. tel:[phone] [facility], [address], [place], [place], [address] , [place] tel: [phone] [facility] ND VAC STRPTCS PNEUMNI BVACCN/INOC VIRAL DIS NECCHRONIC BRONCHITIS NOSLUMBAGO Nov-0 5-200 9 Maríazoe Nunez. [address] [place] [address], [place] [address], [place], [place], [address], [place]. tel:[phone] [facility], [address], [place], [place], [address] , [place] tel: [phone] [facility] VACCIN FOR INFLUENZAOBSTRUCT HARJINDER SLEEP APNEA 8-200 8 María Mayra. [address] [place] [address], [place] [address], [place], [place], [address], [place]. tel:[phone] [facility], [address], [place], [place], [address] , [place] tel: [phone] [facility] PNEUMONIA, ORGANISM NOS 0 7-200 8 Maríazoe Nunez. [address] [place] [address], [place] [address], [place], [place], [address], [place]. tel:[phone] [facility], [address], [place], [place], [address] , [place] tel: [phone] [facility] VACCINATION FOR TD-DT 8-200 7 Maríazoe Nunez. [address] [place] [address], [place] [address], [place], [place], [address], [place]. tel:[phone] [facility], [address], [place], [place], [address] , [place] tel: [phone] [facility] No Information 8-200 4 María Nunez. [facility] [place], [address], [place], [place], [address], [place]. tel:[phone] [employer], [address], [place], [place], [address] , tel: [phone] [facility] GYNECOLOGIC EXAMINATION 6200 4 María Nunez. [address] [place] [address], [facility], [place], [place], [address], [place]. tel:[phone] [employer], [address], [place], [place], [address] , tel: [phone] [facility] HORMONE REPLACE POSTMENO 5200 0 María Nunez. [address] [place] [address], [address], [place], [place], [address], [place]. tel:[phone] Family History Family Member Type Diagnosis Age At Onset Mother Problem (finding) alzheimer's disease Mother Problem (finding) hypertension Brother Problem (finding) Cancer, brain (Cause Of ) Mother Problem (finding) coronary arterioscleros is Mother Problem (finding) malignant neop lasm of breast in first degree relative 76 Brother Problem (finding) Father Problem (finding) Hearing impairment Immunizations Vaccine Date Status Comments 66872 - Pneumococcal_PPV23 administered S ource: Source Unspecified 82795 - Zoster_Shingles administered Sour ce: Source Unspecified 10110 - Influenza administered Source: So urce Unspecified 39167 - TD administered Source: Source Unspecified 69089 - Influenza administered Source: [place] urce Unspecified 65576 - Influenza administered Source: [place] urce Unspecified 97247 - Pneumococcal_PPV23 administered S ource: Source Unspecified Payers Payer name Insurance type Covered constitution party ID Authoriza tion(s) No Information Social [...]
--- OUTSIDE RECORDS SUMMARY | 2024-10-20 18:02 | XMS_ITS | Encounter Summary ---
Author Organization [facility] Address [facility]. [place], [place] [address] [place] [address] Care Team Providers Care Agriculture Teacher Name Role Phone Montana Enriquez MD Unavailable [phone] Emilia Alarcon MD Primary Care Provider + [phone] Linda Lynn CHECK GRADER Primary Care Provider Nasima Meneses RN Unavailable [phone] Priti Manzanares RN Unavailable Unavailab Esther Hathaway Primary Care Provider + Elin Morales RN Unavailable + Elin Morales RN Unavailable + Reshma Salguero PA-C Primary Care Provider + Alyssa Stevens NP Primary Care Provider + Elin Morales RN Unavailable + Elin Morales RN Unavailable + Elin Morales RN Unavailable + Encounter Details Date Type Department Care Team (Late st Contact Info) Description 03/27/2016 Abstract [facility] CONVERSION [address] [place] [address] , Mehreen Nix MD Social History Tobacco Use Types Packs/Day Years Used Date Smoking Tobacco: Never Comments Unknown Sex and Gender Information Value Date Recorded Sex Assigned at Female 09/09/2019 11:15 AM NETWORK ADMINISTRATOR Legal Sex Female 9:30 PM CDT Gender Identity Female 09/09/2019 11:15 AM NETWORK ADMINISTRATOR Sexual Orientation Straight 09/09/2019 11 :15 AM NETWORK ADMINISTRATOR documented as of this encounter Plan of Treatment Upcoming Encounters Date Type Department Care Team (Late st Contact Info) Description 10/31/2024 8:20 AM NETWORK ADMINISTRATOR Office Visit [facility] [address] [phone] Leo Gibson DO 3 [facility] [address] [place] [address] 10/31/2024 1:00 PM NETWORK ADMINISTRATOR Office Visit [facility] Family & Internal Medicine - [address] [phone] Alyssa Stevens, CHECK GRADER [address] [place], [place] [address] 12/13/2024 10:00 AM CDT Office Visit [facility] Family & Internal [address] [phone] Alyssa Stevens, CHECK GRADER [address] [place] [address] documented as of this encounter Visit Diagnoses Not on filedocumented in this encounter Additional Health Concerns Infection Onset Date Last Indicated Resolved Time COVID-19 Rule Out 07/18/2020 07/18/2020 07/19/2020 10:50 PM CDT COVID-19 Rule Out 08/22/2020 08/23/2020 08/23/2020 7:46 AM NETWORK ADMINISTRATOR COVID-19 Rule Out 09/03/2020 09/03/2020 09/04/2020 11:07 AM NETWORK ADMINISTRATOR COVID-19 Rule Out 04/23/2021 04/23/2021 04/23/2021 2:48 PM CDT COVID-19 Rule Out 06/07/2021 06/07/2021 06/08/2021 10:20 PM CDT COVID-19 Rule Out 11/04/2021 11/04/2021 11/04/2021 11:19 AM NETWORK ADMINISTRATOR COVID-19 Rule Out 10/01/2022 10/01/2022 10/01/2022 2:02 PM NETWORK ADMINISTRATOR COVID-19 Rule Out 10/01/2022 10/01/2022 10/01/2022 2:07 PM NETWORK ADMINISTRATOR COVID-19 Rule Out 10/01/2022 10/01/2022 10/02/2022 6:34 PM NETWORK ADMINISTRATOR COVID-19 Rule Out 12/14/2022 12/14/2022 12/14/2022 5:41 PM CDT COVID-19 Rule Out 05/21/2023 05/21/2023 05/21/2023 11:38 AM CDT COVID-19 Rule Out 09/10/2023 09/10/2023 09/10/2023 9:32 AM NETWORK ADMINISTRATOR COVID-19 Confirmed 09/10/2023 09/10/2023 12:32 AM NETWORK ADMINISTRATOR COVID-19 Rule Out 12/13/2023 12/13/2023 12/13/2023 8:23 AM CDT COVID-19 Rule Out 01/27/2024 01/27/2024 01/27/2024 4:20 PM CDT COVID-19 Rule Out 04/12/2024 04/12/2024 04/12/2024 5:24 PM CDT COVID-19 Rule Out 2024 2024 2024 2:40 PM CDT documented as of this encounter Care Teams Agriculture Teacher Relationship Specialty Start Date End Date Emilia Alarcon MD [address] [address] PCP - General INTERNAL MEDICINE 02/27/16 03/22/19 Linda Lynn, CHECK GRADER [facility]. [facility] [address] [place] [address] PCP - General NURSE PRACTITIONER 03/23/19 08/25/20 [place] [address] [place] [address] PCP - General PHYSICIAN MANAGER CARDIOLOGY 08/26/20 05/28/23 Reshma Salguero PA-C [address] [facility] [address] [place] [address] PCP - General PHYSICIAN MANAGER CARDIOLOGY 05/29/23 08/16/23 [place] [address] [facility] [address] [place] [address] PCP - General Nurse Practitioner [facility] 08/17/23 Montana Enriquez MD [facility]. [facility] [address] [place] [address] [employer] CARDIOVASCULAR DISEASE 02/27/16 Nasima Coates RN [address] [place], [place] [address] Product Manufacturing Professional (Ambulatory) REGISTERED NURSE 04/12/19 08/23/20 Priti Manzanares, bender machine (Ambulatory) REGISTERED NURSE 08/24/20 03/14/21 Elin Morales, RN [address] [place] [address] Product Manufacturing Professional (Ambulatory) REGISTERED NURSE 04/25/21 11/25/21 Elin Morales, RN [address] [place] [address] Product Manufacturing Professional (Ambulatory) REGISTERED NURSE 03/09/23 04/08/23 Elin Morales RN [address] [place], [place] [address] Product Manufacturing Professional (Ambulatory) REGISTERED NURSE 12/14/23 01/05/24 Elin Morales RN [address] [place], [place] [address] Product Manufacturing Professional (Ambulatory) REGISTERED NURSE 01/06/24 01/11/24 Elin Morales RN [address] [place], [place] [id number] Product Manufacturing Professional (Ambulatory) REGISTERED NURSE 05/10/24 documented as of this encounter
--- OUTSIDE RECORDS SUMMARY | 2024-10-20 18:02 | XMS_ITS | Clinical Summary ---
Author Organization [facility] Address On license of [facility] [place] [address] [place] [address] Care Team Providers Care Patient Representative Name Role Phone Montana Enriquez MD Unavailable [phone] Alyssa Stevens SUBSTATION SUPERVISOR Primary Care Provider + [phone] Elin Morales RN Unavailable [phone] Allergies Active Allergy Reactions Criticality Noted Date Comments Codeine Shortness of Breath High 03/07/2016 Levofloxacin Shortness of Breath High 11/04/2016 Morphine Shortness of Breath High 03/07/2016 Medications Calcium Citrate-Vitamin D (CITRUS CALCIUM 1500 + D OR) Take 1 tablet by mouth daily. Active aspirin 81 MG chewable tablet Chew 1 tablet (81 mg total) by mouth daily. 10/05/19 21 Active acetaminophen (TYLENOL) 500 MG tablet Take 2 tablets (1,000 mg total) by mouth 3 (three) times daily as needed for Pain. Active cyanocobalamin 5000 MCG/ML solution Take 0.02 mLs (100 mcg total) by mouth once a week. Active fluticasone propionate (FLONASE) 50 MCG/ACT nasal sprayIndication s:Allergic Rhinitis 2 sprays by Nasal route daily as needed. Indications: Allergic Rhinitis 16 g 6 05/04/20 23 Active omeprazole (PRILOSEC) 20 MG capsuleIndicati ons:Gastroesoph ageal reflux disease with esophagitis, unspecified whether hemorrhage Take 1 capsule (20 mg total) by mouth daily. 90 capsule 3 12/26/20 23 Active ipratropium (ATROVENT) 0.03 % nasal spray 2 sprays by Nasal route 2 (two) times daily. 11/15/19 24 Active AZELASTINE 137 MCG/SPRAY nasal spray 2 sprays by Nasal route 2 (two) times daily. 12/14/19 24 Active albuterol sulfate HFA 108 (90 Base) MCG/ACT inhaler Inhale 2 puffs into the lungs every 6 (six) hours as needed for Wheezing. Active doxycycline hyclate (VIBRA-TABS) 100 MG tablet Take 1 tablet (100 mg total) by mouth every 12 (twelve) hours. 05/28/20 24 Active montelukast (SINGULAIR) 10 MG tabletIndicatio ns:COPD, mild (CMS/HCC HHS/HCC) TAKE 1 TABLET BY MOUTH EVERYDAY AT BEDTIME 90 tablet 1 09/16/20 24 Active traZODone (DESYREL) 150 MG tabletIndicatio ns:Primary insomnia TAKE 1 TABLET BY MOUTH NIGHTLY AT BEDTIME. 90 tablet 10/17/19 25 Active loratadine (CLARITIN) 10 MG tabletIndicatio ns:Nasal congestion Take 1 tablet (10 mg total) by mouth daily. 90 tablet 3 10/17/19 25 Active memantine (NAMENDA) 10 MG tabletIndicatio ns:At high risk for falls,Dementia of the Alzheimer's type, with late onset, with delusions (CMS/HCC HHS/HCC) Take 1 tablet (10 mg total) by mouth daily. 90 tablet 10/17/19 25 Active loratadine (CLARITIN) 10 MG tabletIndicatio ns:Nasal congestion TAKE 1 TABLET BY MOUTH DAILY. FOLLOW UP WITH PROVIDER FOR FURTHER REFILLS 90 tablet 3 02/23/20 24 025 Discontinued(Re order) traZODone (DESYREL) 150 MG tabletIndicatio ns:Primary insomnia Take 1 tablet (150 mg total) by mouth nightly at bedtime. 90 tablet 07/14/20 24 025 Discontinued memantine (NAMENDA) 10 MG tabletIndicatio ns:At high risk for falls,Dementia of the Alzheimer's type, with late onset, with delusions (CMS/HCC HHS/HCC) take 1 tablet by mouth daily 90 tablet 07/22/20 24 025 Discontinued(Re order) Active Problems Problem Noted Date Diagnosed Date Care Management 05/25/2024 Delusional disorders ([facility]) 4 Hypertensive heart disease w ith heart failure ([facility]) 2024 Longstanding persistent atri al fibrillation ([facility]) 2024 Stage 3a chronic kidney disease ([facility] ) 2024 Pneumonia 12/13/2023 At high risk for falls 12/01/2023 Gastroesophageal reflux dise ase with esophagitis, unspecified whether hemorrhage 10/01/2023 Chronic pansinusitis 08/12/2023 Aspiration pneumonia ([facility]) 3 Dementia of the Alzheimer's type, with late onset, with delusions ([facility]) 02/13/2022 Moderate episode of recurren t major depressive disorder ([facility]) 02/13/2022 Esophageal dysphagia 05/27/2021 Overview (05/27/2021): Added automatically from request for surgery [id number] Physical deconditioning 08/27/2020 Closed displaced fracture of right femoral neck ([facility]) 08/23/2020 3-part fracture of surgical neck of right humerus, initial encounter for closed fracture 08/23/2020 Weakness of right lower extremity 08/22/2020 BMI 31.0-31.9,adult 02/07/2020 Closed fracture of nasal bon e with routine healing, subsequent encounter 07/20/2019 History of transient ischemic attack (TIA) 05/03 Urinary tract infection with hematuria, site uns pecified 04/16/2019 Gastric bypass status for obesity 03/22/2019 Atherosclerosis of aorta 09/03/2018 Atherosclerosis of arteries of extremities 09/03 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 10/22/2017 Essential tremor 06/13/2017 Neck pain 05/05/2017 Spinal stenosis of lumbar region at multiple lev els 04/30/2016 Peripheral neuropathy 03/17/2016 Restless legs syndrome (RLS) 02/16/2016 Lung mass 01/02/2016 COPD, mild ([facility]) 09/14/2015 Urinary incontinence 07/13/2015 Cigarette smoker 02/02/2015 Gait disturbance 10/31/2014 Chronic open angle glaucoma 10/25/2014 Gastroesophageal reflux disease without esophagi tis 06/20/2014 Migraines 06/20/2014 Age related osteoporosis, un specified pathological fracture presence 06/20/2014 Idiopathic scoliosis and kyphoscoliosis 05/02/20 14 Generalized osteoarthritis of multiple sites Hay fever 11/11/2013 Vitamin B12 deficiency 07/29/2013 Irritable bowel syndrome 06/02/2013 Bronchial asthma ([facility]) 04/04/2013 Bronchiectasis ([facility]) 04/04/2013 Vitamin D deficiency 04/04/2013 Hypertension 04/04/2013 Insomnia 03/11/2013 Fistula 11/18/2010 Peripheral vascular disease Resolved Problems Problem Noted Date Diagnosed Date Resolved Date Enrolled in chronic care management 04/27/2024 04/28/2024 History of right shoulder fracture 05/27/2021 02/13/2022 Assessment & Plan (05/27/2021 2:09 PM CDT): Patient states that she had a previous shoulder fracture and hip fracture. She was actually seen at [facility]. The hip was fixed and the shoulder was treated conservatively. Still having pain and discomfort. Has gone through formal physical therapy. Looking for a second opinion on why her shoulder still hurts. Steroid injection today If no significant improvement we could consider an MRI to see if the rotator cuff is torn. However, at the age of 81 repair of the rotator cuff is of limited success. Might consider reverse total shoulder. She appears to understand. MRI would be ordered if she is wanting to proceed with surgical intervention. Sepsis ([facility]) 04/23/2021 Chronic right shoulder pain 11/09/2020 08/11/2022 Hip fracture ([facility]) 08/22/2020 08/23/2020 Closed nondisplaced fracture of fifth metatarsal bone of left foot with routine healing, subsequent encounter 10/03/2019 02/21/2022 Abrasion 07/20/2019 02/13/2022 Need for immunization against influenza 07/12/2019 06/08/2020 Acute bilateral low back vazquez n without sciatica 06/03/2019 02/13/2022 Frequency of micturition 06/03/2019 Frequent falls 05/03/2019 02/13/2022 Acute cystitis without hematuria 05/03/2019 02/13/2022 Fall, subsequent encounter 04/16/2019 0 02/13/2022 Assessment & Plan (05/27/2021 2:09 PM CDT): Initially treated at [facility] 03/23/2019 02/13/2022 Cephalalgia 03/22/2019 02/13/2022 Assessment & Plan (03/22/2019 6:29 PM CDT): Patient with episodic severe headaches which can last at least a month continuously not will help with any medication that she is ever tried in the past. No dangerous features and CT scan of brain noncontrast did not show hydrocephalus or other gross signs of tumor during June 2018 outpatient visit with PCP. Discussed with Dr. Foster and will do MRI with and without contrast He wished to put patient on Depakote and doxepin Strong component of tension type headache Rule out connective tissue disease e.g. polymyalgia rheumatica or temporal arteritis with sed rate Body aches 12/28/2018 02/13/2022 Fever and chills 12/28/2018 02/13/2022 Atherosclerosis of artery of lower extremity 8 02/13/2022 Osteoarthritis, unspecified osteoarthritis type, unspecified site 09/03/2018 02/13/2022 Back pain, acute 07/21/2018 02/13/2022 Shoulder pain 06/21/2018 02/13/2022 Chronic inflammation of colon 04/16/2018 02/13/2022 Thoracic back pain 01/22/2018 2 Sinusitis 09/03/2017 02/13/2022 Declining functional status 07/02/2017 02/13/2022 Abnormal fasting glucose 01/01/2017 Bilateral claudication of lower limb 11/04/2016 08/11/2022 Overview (09/03/2018): Annotation - [id number]: Annotation: Bilateral claudication of lower limb (I73.9); Impression - [id number] Linda Lynn: Impression: Asymptomatic. Continue established treatment plan including control of risk factors. Additional Details: Pt has had issues with poor gait and pain in lower extremities but at this visit has been stable; Description: Bilateral claudication of lower limb (I73.9) CHF (congestive heart failur e), NYHA class II ([facility]) 11/04/2016 02/13/2022 Overview (09/03/2018): Annotation - [id number]: Annotation: CHF (congestive heart failure), NYHA class II (I50.9); Impression - [id number] Linda Lynn: Impression: Asymptomatic. Continue established treatment plan.; Description: CHF (congestive heart failure), NYHA class II (I50.9) Assessment & Plan (03/22/2019 6:27 PM CDT): Appears euvolemic. Continue home meds Lumbar radiculopathy, chronic 04/30/2016 02/13/2022 Alzheimer's dementia ([facility]) 03/17/2016 02/13/2022 Assessment & Plan (03/22/2019 6:27 PM CDT): Patient appears alert oriented to self. Admits to poor memory Appears stable continue home medications Adult hypothyroidism 02/12/2016 022 Anemia 10/20/2015 02/13/2022 Personal history of disease 05/18/2015 02/13/2022 Depression 01/18/2015 02/13/2022 Hypokalemia 01/18/2015 02/13/2022 Tremor 12/04/2014 02/13/2022 Chronic diarrhea 03/14/2013 02/13/2022 Acute on chronic diastolic ( congestive) heart failure ([facility]) 02/13/2022 Encounters Date Type Department Care Team Description 10/20/2024 Patient Outreach [facility] Family & Internal Medicine [facility] [address] [place] [address] Elin Morales, RN Care Management; ER F/U ([facility] on 10/18/24) 10/19/2024 Telephone [facility] Internal [facility] [address] [place] [address] Alyssa Stevens, ASHLEY Information 10/17/[address] [address] Alyssa Stevens, ASHLEY Refill Request 10/17/2024 Patient Outreach [facility] Internal [address] [address] Elin Morales, RN Care Management 09/15/2024 Patient Outreach [address] [phone] Elin Morales, RN Care Management 09/13/2024 11:00 AM IT INVESTMENT/PORTFOLIO MANAGER Laboratory Only [address] [address] Alyssa Stevens NP 09/13/2024 10:40 AM IT INVESTMENT/PORTFOLIO MANAGER Office Visit [address] [address] Alyssa Stevens NP Follow Up (3 month follow up medication management ) 09/13/2024 Travel 08/11/2024 Telephone [facility] [address] [phone] Jeff Denny DO Results 08/11/2024 Patient Outreach [address] [phone] Elin Morales, RN Care Management 08/10/2024 8:07 AM IT INVESTMENT/PORTFOLIO MANAGER - 08/10/2024 11:59 PM IT INVESTMENT/PORTFOLIO MANAGER Hospital Encounter [facility] [address] [place] [address] Jeff Denny DO [place], Renuka Coburn, MATERIAL INSPECTOR Discharge Disposition: Home or Self Care (Routine Discharge) 08/10/2024 Travel 07/21/2024 Patient Outreach [facility] Family & Internal Medicine [address] [address] Elin Morales, RN Care Management from Last 3 Months Immunizations Name Administration Dates Next Due Fluzone High Dose (IIV, triv alent, 0.5mL) 08/03/2024 Fluzone High Dose - >Age 65 (Prefilled Syringe) 08/04/2023,08/04/2023,06/02/2022,2019,07/12/2019,06/11/2017,07/15/2016,1 Influenza (Generic) 06/28/2018,06/30/2013,2012 Influenza Adult (Generic) 07/12/2019,09/2017,06/11/2017,2015,07/12/2015,06/20/2014,06/30/2013 Influenza Quad Vial 07/30/2020 [employer] COVID-19 (ORIGINAL FORMULATION, PURPLE CAP) mRNA, LNP-S, PF, 30 MCG/0.3 ML DOSE 07/06/2021,12/16/2020,11/25/2020 Pneumococcal (Pneumovax 23) 08/04/2016 Pneumococcal (Prevnar 13) 09/09/2014 Pneumococcal (Prevnar 7) 07/26/2015 Td (Tenivac) preservative free 07/30/2020,2004 Td, Adsorbed, Preservative F ree, Adult Use, Lf Unspecified 07/30/2020 Zoster (Zostavax) 57339 Unt/0.65Ml 07/23/2012 Family History Medical History Relation Comments No Known Problems Father No Known Problems Maternal Aunt No Known Problems Maternal Grandfather No Known Problems Maternal Grandmother No Known Problems Maternal Uncle Alzheimers Mother Breast Cancer Mother No family history of premature coronary artery d isease. Other No Known Problems Paternal Aunt No Known Problems Paternal Grandfather No Known Problems Paternal Grandmother No Known Problems Paternal Uncle Relation Status Comments Father Maternal Aunt Maternal Grandfather Maternal Grandmother Maternal Uncle Mother Other Paternal Aunt Paternal Grandfather Paternal Grandmother Paternal Uncle Social History Tobacco Use Types Packs/Day Years Used Date Smoking Tobacco: Never Passive Smoke Exposure: Past Smokeless Tobacco: Never Tobacco Cessation:Counseling Given: Yes Alcohol Use Standard Drinks/Week Comments No 0 (1 standard drink = 0.6 oz pur e alcohol) [facility] Utilities Answer Date Recorded In the past 12 months has e electric, gas, oil, or water company threatened to shut off services in your home? No 12/13/2023 Humiliation, Afraid, Rape, and Kick questionnair e Answer Date Recorded Within the last year, have y ou been afraid of your partner or ex-partner? No 12/13/2023 Within the last year, have y ou been humiliated or emotionally abused in other ways by your partner or ex-partner? No Within the last year, have y ou been kicked, hit, slapped, or otherwise physically hurt by your partner or ex-partner? No 12/13/2023 Within the last year, have y ou been raped or forced to have any kind of sexual activity by your partner or ex-partner? No 12/13/2023 Social Connection and Isolation Panel [NHANES] A nswer Date Recorded In a typical week, how many times do you talk on the phone with family, friends, or neighbors? Twice a week 03/08/20 How often do you get togethe r with friends or relatives? Twice a week 03/08/2023 How often do you attend [facility] or adventism services? 1 to 4 times per year 03/08/2023 Do you belong to any clubs o r organizations such as episcopal groups, unions, fraternal or athletic groups, or school groups? No 03/08/2023 How often do you attend meet ings of the clubs or organizations you belong to? Never 03/08/2023 Are you , , di vorced, , never , or living with a partner? 03/08/2023 AUDIT-C Answer Date Recorded Q1: How often do you have a drink containing alcohol? Never 12/13/2023 Q2: How many drinks containi ng alcohol do you have on a typical day when you are drinking? Patient does not drink Q3: How often do you have si x or more drinks on one occasion? Never 12/13/2023 Overall Financial Resource Strain (CARDIA) Answe r Date Recorded How hard is it for you to pa y for the very basics like food, housing, medical care, and heating? Not hard at all 12/13/2023 PHQ-2 Answer Date Recorded Patient Health Questionnaire-2 Score 0 12/13/2023 [facility] - Occupational Stress Questionnaire Answer Date Recorded Do you feel stress - tense, restless, nervous, or anxious, or unable to sleep at night because your mind is troubled all the time - these days? Not at all 12/13/2023 Exercise Vital Sign Answer Date Recorde d On average, how many days pe r week do you engage in moderate to strenuous exercise (like a brisk walk)? 0 days 12/13/2023 On average, how many minutes do you engage in exercise at this level? 0 min 12/13/2023 Hunger Vital Sign Answer Date Recorded Within the past 12 months, y ou worried that your food would run out before you got the money to buy more. Never true 12/13/19 24 Within the past 12 months, t he food you bought just didn't last and you didn't have money to get more. Never true 12/13/2023 PRAPARE - Transportation Answer Date Re corded In the past 12 months, has l ack of transportation kept you from medical appointments or from getting medications? No 11/26 In the past 12 months, has l ack of transportation kept you from meetings, work, or from getting things needed for daily living? No 12/13/2023 Housing Stability Vital Sign Answer William e Recorded In the last 12 months, was t here a time when you were not able to pay the mortgage or rent on time? No 12/13/2023 In the last 12 months, how many places have you lived? 1 12/13/2023 In the last 12 months, was t here a time when you did not have a steady place to sleep or slept in a prison (including now)? No 12/13/2023 Comments No Sex and Gender Information Value Date Recorded Sex Assigned at Female 09/09/2019 11:15 AM IT INVESTMENT/PORTFOLIO MANAGER Legal Sex Female 9:30 PM CDT Gender Identity Female 09/09/2019 11:15 AM IT INVESTMENT/PORTFOLIO MANAGER Sexual Orientation Straight 09/09/2019 11 :15 AM IT INVESTMENT/PORTFOLIO MANAGER Occupation Industry Job Start Date Job End Date Not on file Not on file Not on file Not on file Last Filed Vital Signs Vital Sign Reading Time Taken Comments Blood Pressure 137/84 09/13/2024 10:26 AM IT INVESTMENT/PORTFOLIO MANAGER Pulse 66 09/13/2024 10:26 AM IT INVESTMENT/PORTFOLIO MANAGER Temperature 36.1 ??C (96.9 ??F) 09/13/2024 10:[address] Respiratory Rate 18 09/13/2024 10:26 AM IT INVESTMENT/PORTFOLIO MANAGER Oxygen Saturation 100% 09/13/2024 10:26 AM IT INVESTMENT/PORTFOLIO MANAGER Inhaled Oxygen Concentration - - Weight 54.9 kg (121 lb) 09/13/2024 10:26 AM IT INVESTMENT/PORTFOLIO MANAGER Height 162.6 cm (5' 4 ) 09/13/2024 10:26 AM IT INVESTMENT/PORTFOLIO MANAGER Body Mass Index 20.77 09/13/2024 10:26 AM IT INVESTMENT/PORTFOLIO MANAGER Plan of Treatment Upcoming Encounters Date Type Department Care Team (Late st Contact Info) Description 10/31/2024 8:20 AM IT INVESTMENT/PORTFOLIO MANAGER Office Visit [facility] [address] [phone] Jeff Denny DO [address] [facility] [address] [place] [id number] 10/31/2024 1:00 PM IT INVESTMENT/PORTFOLIO MANAGER Office Visit [facility] Family & Internal Medicine [address] [phone] [place] [address] [facility] [address] [place], [place] [id number] 12/13/2024 10:00 AM CDT Office Visit [facility] Internal Medicine [address] [phone] [place] [address] [facility] [employer] [address] [place], [place] [id number] Health Maintenance Due Date Last Done Comments ASCVD Statin 1940 Annual Medicare Wellness Visit 2005 RSV Immunization or 60+ Years (1 - 1-dose 75+ series) 2015 PHQ-2 (Physician Brewster) 12/12/2024 12/13/2023 Zoster Vaccines (2 of 3) 02/13/2025 07/23/2012 Pos tponed from 09/17/2012 (Patient Refused) COVID-19 Vaccine (4 - season) 2025 07/06/2021, 12/16/2020, 11/25/2020 Postponed from 05/29/2024 (Patient Refused) DTaP, Tdap and Td Vaccines (1 - Tdap) 04/04/2030 07/30/2020, 07/30/2020, 09/28/2004 Postponed from 07/31/2020 (Future Appointment) Pneumococcal Vaccine: 65+ Years Completed 08/04/2016, 07/26/2015, 09/09/2014 Dexa Scan (General) Completed 12/24/2021, 05/22/2016, 06/23/2014 Influenza Adult Completed 08/03/2024, 03/2023, 08/04/2023, Additional history exists Meningococcal B Vaccine Aged Out No l onger eligible based on patient's age to complete this topic Meningococcal Vaccine Aged Out No dorita courtney eligible based on patient's age to complete this topic RSV Immunizations Under 20 Months Aged Out No longer eligible based on patient's age to complete this topic Goals Goal Patient Goal Type Associated Problems Recent Progress Patient-Stated? Author Free from falls/injury from falls- Dementia General On track(2024 9:15 AM IT INVESTMENT/PORTFOLIO MANAGER) No Eiln Morales RN Note: 08/11/24: Denies any recent falls at this time. Patient is making beds today and keeping active. She will take short breaks when needed. She has her ; Paramjit for support. 07/13/24: Denies any falls at this time. 06/28/24: Denies any falls since she was last seen by PCP in the office on 06/20/24. 06/16/24: Denies any issues at this time. Establish Plan for Symptom Monitoring-[facility] asthma or COPD exacerbation. Lifestyle On track(2024 9:15 AM IT INVESTMENT/PORTFOLIO MANAGER) Elin Pittman RN Note: Patient will monitor s/s of bronchial asthma and COPD exacerbation. Report the onset of one or more of these s/s, if life threatening to call 911. Chest tightness, coughing, wheezing or increased sob. Managing OA Lifestyle On track(2023 5:16 PM CDT) No Elin Morales RN Note: Protect joints from overuse Take medication as directed Physical activity such as walking for 30 minutes most days or as directed by provider To reduce pain /stiffness: use cold or heat Keep healthy weight and diet Use cane to ambulate Stretching Establish Regular Follow-Ups with PCP Lifestyle On track(2024 9:15 AM IT INVESTMENT/PORTFOLIO MANAGER) Elin Pittman RN Note: 10/20/24: Confirmed appointment with PCP on 10/31/24. 10/17/24: Scheduled 3 month f/u on 12/13/24 at 10:00 am. 08/11/24: Scheduled 3 month f/u on 09/13/24 at 10:40 am with PCP. 07/13/24: Informed Paramjit to schedule 3 month f/u with PCP from May or sooner if patient needs to be seen. 06/28/24: Patient keeps regularly scheduled appointments. 06/16/24: Confirmed appointment with PCP on 06/20/24 at 9:40 am. Outpatient Goal Care Plan headache No Nasima Coates RN Establish Plan for Symptom Monitoring Care Plan headache No Nasima Coates RN Medical Devices Implanted Type Area Air Purifier Servicer Device Identifier Shelf Expiration Date Model / Serial / Lot 8x 90mm Pt Screw Implanted:Qty: 1 on 08/23/2020 by Kayden Adam MD at [facility] Screw Right: Hip [employer] 8x95mm Pt Screw Implanted:Qty: 1 on 08/23/2020 by Kayden Adam MD at [facility] Screw Right: Hip [employer] [id number] / / Procedures Procedure Name Priority Date/Time Associated Diagnosis Comments COLLECTION VENOUS BLOOD VENIPUNCTURE Routine 09/13/2024 10:50 AM IT INVESTMENT/PORTFOLIO MANAGER Low serum vitamin B12 Vitamin D deficiency Mixed hyperlipidemia Prediabetes Numbness and tingling Essential hypertension VITAMIN B12 / FOLATE Today 09/13/2024 10:45 AM IT INVESTMENT/PORTFOLIO MANAGER Low serum vitamin B12 Numbness and tingling VITAMIN B6 Routine 09/13/2024 10:45 AM IT INVESTMENT/PORTFOLIO MANAGER Low serum vitamin B12 Numbness and tingling VITAMIN B1 THIAMINE Routine 09/13/2024 1 0:45 AM IT INVESTMENT/PORTFOLIO MANAGER Low serum vitamin B12 Numbness and tingling VITAMIN D, 25 OH Routine 09/13/2024 10:4 5 AM IT INVESTMENT/PORTFOLIO MANAGER Vitamin D deficiency HEMOGLOBIN, GLYCOSYLATED Routine 09/13/2024 10:45 AM IT INVESTMENT/PORTFOLIO MANAGER Prediabetes COMPREHENSIVE METABOLIC PANEL Routine 09/13/2024 10:45 AM IT INVESTMENT/PORTFOLIO MANAGER Essential hypertension CBC W/DIFF AUTOMATED Today 09/13/2024 10:45 AM IT INVESTMENT/PORTFOLIO MANAGER Essential hypertension LIPID PANEL Routine 09/13/2024 10:45 AM IT INVESTMENT/PORTFOLIO MANAGER Mixed hyperlipidemia XR SPEECH SWALLOW [facility] ONLY Routine 08/10/2024 8:50 AM IT INVESTMENT/PORTFOLIO MANAGER Cough, unspecified type BONE DENSITY/DEXA Routine 12/24/2021 10: 48 AM CDT Age related osteoporosis, unspecified pathological fracture presence from Last 3 Months or Most Recently Relevant to Health Maintenance Results * (ABNORMAL) VITAMIN B12 / FOLATE (09/13/2024 10:45 AM IT INVESTMENT/PORTFOLIO MANAGER) Pathologist [facility] VITAMIN B12 S/P/B 1,561(H) 200 - 1,100 pg/mL [facility] FOLATE 10.0 ng/mL [facility] Comment: ? Reference Range ? Low: ? <3.4 ? Borderline: ?3.4-5.4 ? Normal: ?>5.4 09/13/2024 10:4 5 AM IT INVESTMENT/PORTFOLIO MANAGER 09/14/2024 12:23 AM IT INVESTMENT/PORTFOLIO MANAGER Narrative Resulting Agency Comment Performing Organization Information: ?Site ID: [id number] ?Name: [facility] ?Address: [address] [place] [address] ?Director: Mago Abad MD us Alyssa Stevens NP LABORATORY Final Result [facility] [address] [place] [address], * (ABNORMAL) HEMOGLOBIN, GLYCOSYLATED (09/13/2024 10:45 AM IT INVESTMENT/PORTFOLIO MANAGER) HGB A1C 6.0(H) <5.7 % of total Hgb [facility] Comment: For someone without known diabetes, a hemoglobin A1c value between 5.7% and 6.4% is consistent with prediabetes and should be confirmed with a follow-up test. For someone with known diabetes, a value <7% indicates that their diabetes is well controlled. A1c targets should be individualized based on duration of diabetes, age, comorbid conditions, and other considerations. This assay result is consistent with an increased risk of diabetes. Currently, no consensus exists regarding use of hemoglobin A1c for diagnosis of diabetes for children. 09/13/2024 10:4 5 AM IT INVESTMENT/PORTFOLIO MANAGER 09/14/2024 12:23 AM IT INVESTMENT/PORTFOLIO MANAGER Narrative Resulting Agency Comment Performing Organization Information: ?Site ID: [id number] ?Name: [facility] ?Address: [address] [place] [phone] ?Director: Mago Abad us Alyssa Stevens NP LABORATORY Final Result [facility] [address] [address], * (ABNORMAL) COMPREHENSIVE METABOLIC PANEL (09/13/2024 10:45 AM IT INVESTMENT/PORTFOLIO MANAGER) Pathologist [facility] GLUCOSE 85 65 - 99 mg/dL [place] Comment: ? Fasting reference interval BUN 21 7 - 25 mg/dL [place] CREATININE S/P/B 1.14(H) 0.60 - 0.95 mg/dL [place] GFR ESTIMATE 47(L) > OR = 60 mL/min/1.7 3m2 [place] BUN CREATININE RATIO 18 6 - 22 (calc) [place] SODIUM S/P/B 140 135 - 146 mmol/L [place] POTASSIUM S/P/B 4.2 3.5 - 5.3 mmol/L [place] CHLORIDE S/P/B 106 98 - 110 mmol/L [place] CO2 24 20 - 32 mmol/L [place] CALCIUM S/P/B 9.2 8.6 - 10.4 mg/dL [place] TOTAL PROTEIN S/P/B 6.0(L) 6.1 - 8.1 g/dL [place] ALBUMIN S/P/B 4.0 3.6 - 5.1 g/dL [place] GLOBULIN 2.0 1.9 - 3.7 g/dL (calc) [place] ALBUMIN/GLOBULIN RATIO 2.0 1.0 - 2.5 (calc) [place] BILIRUBIN TOTAL S/P/B 0.3 0.2 - 1.2 mg/dL [place] ALKALINE PHOSPHATASE S/P/B 79 37 - 153 U/L [place] AST 14 10 - 35 U/L [place] ALT 9 6 - 29 U/L [place] 09/13/2024 10:4 5 AM IT INVESTMENT/PORTFOLIO MANAGER 09/14/2024 12:23 AM IT INVESTMENT/PORTFOLIO MANAGER Narrative Resulting Agency Comment Performing Organization Information: ?Site ID: ?Name: [facility] ?Address: [address] [place] [phone] ?Director: Mago Abad Alyssa Stevens NP LABORATORY Final Result [facility] [employer] - [facility] [address] [phone] * (ABNORMAL) LIPID PANEL (09/13/2024 10:45 AM IT INVESTMENT/PORTFOLIO MANAGER) CHOLESTEROL 117 <200 mg/dL [place] HDL 50 > OR = 50 mg/dL [place] TRIGLYCERIDES 178(H) <150 mg/dL [place] LDL (CALCULATED) 42 mg/dL (calc) [place] Comment: Reference range: <100 Desirable range <100 mg/dL for primary prevention; ?? <70 mg/dL for patients with CHD or diabetic patients with > or = 2 CHD risk factors. LDL-C is now calculated using the Juan calculation, which is a validated novel method providing better accuracy than the Friedewald equation in the estimation of LDL-C. Rik LACEY et al. JOSH. 2013;310(19): 8803-4557 (http://education.Applied NanoTools/faq/XRB696) CHOL/HDL RATIO 2.3 <5.0 (calc) [place] NON HDL CHOLESTEROL 67 <130 mg/dL (calc) [place] Comment: For patients with diabetes plus 1 major ASCVD risk factor, treating to a non-HDL-C goal of <100 mg/dL (LDL-C of <70 mg/dL) is considered a therapeutic option. 09/13/2024 10:4 5 AM IT INVESTMENT/PORTFOLIO MANAGER 09/14/2024 12:23 AM IT INVESTMENT/PORTFOLIO MANAGER Narrative Resulting Agency Comment Performing Organization Information: ?Site ID: ?Name: [facility] ?Address: [facility] [place] [address] ?Director: Mago Abad Alyssa Stevens NP LABORATORY Final Result [facility] - [facility] [place] [address] [place] [address], * (ABNORMAL) CBC W/DIFF AUTOMATED (09/13/2024 10:45 AM IT INVESTMENT/PORTFOLIO MANAGER) WBC 4.8 3.8 - 10.8 Thousand/u L [place] RBC 4.20 3.80 - 5.10 Million/uL [place] HGB 10.9(L) 11.7 - 15.5 g/dL [place] HCT 35.5 35.0 - 45.0 % [place] MCV 84.5 80.0 - 100.0 fL [place] MCH 26.0(L) 27.0 - 33.0 pg [place] MCHC 30.7(L) 32.0 - 36.0 g/dL [place] Comment: For adults, a slight decrease in the calculated MCHC value (in the range of 30 to 32 g/dL) is most likely not clinically significant; however, it should be interpreted with caution in correlation with other red cell parameters and the patient's clinical condition. RDW 13.3 11.0 - 15.0 % [place] PLT 273 140 - 400 Thousand/u L [place] MPV 8.7 7.5 - 12.5 fL [facility] [place] ABS. NEUTROPHILS 3,062 1,500 - 7,800 cells/uL [place] ABS. LYMPHOCYTES 1,330 850 - 3,900 cells/uL [place] ABS. MONOCYTES 331 200 - 950 cells/uL [place] ABS. EOSINOPHILS 38 15 - 500 cells/uL [place] ABS. BASOPHILS 38 0 - 200 cells/uL [place] SEG NEUTROPHILS 63.8 % [facility] [place] LYMPHOCYTES 27.7 % [place] MONOCYTES 6.9 % [place] EOSINOPHILS 0.8 % [place] BASOPHILS 0.8 % [place] 09/13/2024 10:4 5 AM IT INVESTMENT/PORTFOLIO MANAGER 09/14/2024 12:23 AM IT INVESTMENT/PORTFOLIO MANAGER Narrative Resulting Agency Comment Performing Organization Information: ?Site ID: ?Name: [facility] ?Address: [address] [place] [phone] ?Director: Mago Abad Alyssa Stevens NP LABORATORY Final Result [facility] [address] [address], * VITAMIN B6 (09/13/2024 10:45 AM IT INVESTMENT/PORTFOLIO MANAGER) Pathologist [facility] VITAMIN B6 S/P/B 6.5 2.1 - 21.7 ng/mL [facility] Comment: (Note) Vitamin supplementation within 24 hours prior to blood draw may affect the accuracy of results. This test was developed and its analytical performance characteristics have been determined by [facility]. It has not been cleared or approved by the FDA. This assay has been validated pursuant to the CLIA regulations and is used for clinical purposes. [facility] [address] [address],[address] [facility] [id number] Raimundo Baxter MD, PhD 09/13/2024 10:4 5 AM IT INVESTMENT/PORTFOLIO MANAGER 09/14/2024 9:12 AM IT INVESTMENT/PORTFOLIO MANAGER Narrative Resulting Agency Comment Performing Organization Information: ?Site ID: [id number] ?Name: [facility] ?Address: [address] [place] [address], [address] [place] [phone] ?Director: Raimundo Baxter MD,PhD Alyssa Stevens SUBSTATION SUPERVISOR LABORATORY Final Result [facility] [address] [place] [address], [address] [place] [phone], * VITAMIN B1 THIAMINE (09/13/2024 10:45 AM IT INVESTMENT/PORTFOLIO MANAGER) [facility] VITAMIN B1 S/P/B 8 8 - 30 nmol/L [facility] Comment: (Note) Vitamin supplementation within 24 hours prior to blood draw may affect the accuracy of the results. This test was developed and its analytical performance characteristics have been determined by [facility]. It has not been cleared or approved by FDA. This assay has been validated pursuant to the CLIA regulations and is used for clinical purposes. [facility] [address] [place] [address],[address] [place] [address] Raimundo Baxter MD, PhD 09/13/2024 10:4 5 AM IT INVESTMENT/PORTFOLIO MANAGER 09/14/2024 9:12 AM IT INVESTMENT/PORTFOLIO MANAGER Narrative Resulting Agency Comment Performing Organization Information: ?Site ID: [id number] ?Name: [facility] ?Address: [address] [place] [address], [address] [place] [phone] ?Director: Raimundo Baxter MD,PhD Alyssa Stevens SUBSTATION SUPERVISOR LABORATORY Final Result [facility] [address] [place] [address], [address] [place] [phone], * VITAMIN D, 25 [place] (09/13/2024 10:45 AM IT INVESTMENT/PORTFOLIO MANAGER) [facility] VITAMIN D 25 HYDROXY TOTAL S/P/B 49.5 >29.9 ng/mL [facility] Comment: This test was developed and its analytical performance characteristics have been determined by [facility]. It has not been cleared or approved by the U.S. Food and Drug Administration. This assay has been validated pursuant to the CLIA regulations and is used for clinical purposes. Vitamin D, 25-Hydroxy reports concentrations of two common forms, 25-OHD2 and 25-OHD3. 25-OHD3 indicates both endogenous production and supplementation. 25-OHD2 is an indicator of exogenous sources, such as diet or supplementation. Therapy is based on measurement of Total 25-OHD, with levels <20 ng/mL indicative of Vitamin D deficiency, while levels between 20 ng/mL and 30 ng/mL suggest insufficiency. Optimal levels are >=30 ng/mL. Vitamin D, 25-Hydroxy reports concentrations of two common forms, 25-OHD2 and 25-OHD3. 25-OHD3 indicates both endogenous production and supplementation. 25-OHD2 is an indicator of exogenous sources, such as diet or supplementation. Therapy is based on measurement of Total 25-OHD, with levels <20 ng/mL indicative of Vitamin D deficiency, while levels between 20 ng/mL and 30 ng/mL suggest insufficiency. Optimal levels are > or = 30 ng/mL. VITAMIN D 25 HYDROXY D3 S/P/B 49.5 ng/mL [facility] Comment: This test was developed and its analytical performance characteristics have been determined by [facility]. It has not been cleared or approved by the FDA. This assay has been validated pursuant to the CLIA regulations and is used for clinical purposes. VITAMIN D 25 HYDROXY D2 S/P/B <1.0 ng/mL [facility] Comment: This test was developed and its analytical performance characteristics have been determined by [facility]. It has not been cleared or approved by the FDA. This assay has been validated pursuant to the CLIA regulations and is used for clinical purposes. 09/13/2024 10:4 5 AM IT INVESTMENT/PORTFOLIO MANAGER 09/15/2024 6:46 AM IT INVESTMENT/PORTFOLIO MANAGER Narrative Resulting Agency Comment Performing Organization Information: ?Site ID: [id number] ?Name: [facility] [employer] ?Address: [facility] [address] [facility], [address] [place] [address] ?Director: Yuri Blanchard PhD,[facility] Alyssa Stevens NP LABORATORY Final Result [facility] [place] [facility] [address] [facility], [address] [place] [address], [place] * [facility] - XR SPEECH SWALLOW (08/10/2024 8:50 AM IT INVESTMENT/PORTFOLIO MANAGER) Anatomical Region Laterality Modality NA Radiographic [place] ging, Radiographic Imaging 08/10/2024 11:4 5 AM IT INVESTMENT/PORTFOLIO MANAGER Impressions 08/10/2024 11:48 AM IT INVESTMENT/PORTFOLIO MANAGER ===== IMPRESSION: ===== 1. ?? Penetration is present within liquid barium. Patient has rapid oral intake. Ordered By: JEFF DENNY Interpreted By: Edmund Gorman MD, 08/10/2024 11:45 AM Narrative 08/10/2024 11:48 AM IT INVESTMENT/PORTFOLIO MANAGER [facility] [address] [place] [address] EXAMINATION: Modified Barium Swallow EXAM DATE/TIME: 08/10/2024 8:15 AM REASON FOR EXAM: ??dysphagia, concern for aspiration ? COMPARISON: None TECHNIQUE: Real-time lateral video fluoroscopy of the swallowing mechanism was performed with speech pathologist in attendance and video record maintained. A total of 1.9 minutes of fluoroscopic time was utilized for the study. The patient was challenged with multiple consistencies of barium. Number of images:27 Dose:11.6 mGy. FINDINGS: Patient was given varying consistencies of barium to ingest. There is noted penetration that is present within liquid barium. There is noted rapid oral intake with rapid oral to pharyngeal bolus movement. No definitive evidence of aspiration was present on the examination. Procedure Note Edmund Gorman MD - 08/10/2024 [facility] [address] [place] [address] EXAMINATION: Modified Barium Swallow EXAM DATE/TIME: 08/10/2024 8:15 AM REASON FOR EXAM: dysphagia, concern for aspiration COMPARISON: None TECHNIQUE: Real-time lateral video fluoroscopy of the swallowing mechanismwas performed with speech pathologist in attendance and video recordmaintained. A total of 1.9 minutes of fluoroscopic time was utilized forthe study. The patient was challenged with multiple consistencies ofbarium. Number of images:27 Dose:11.6 mGy. FINDINGS: Patient was given varying consistencies of barium to ingest. There isnoted penetration that is present within liquid barium. There is noted rapid oral intake with rapid oral to pharyngeal bolusmovement. No definitive evidence of aspiration was present on theexamination. ===== IMPRESSION: ===== 1. Penetration is present within liquid barium. Patient has rapid oralintake. Ordered By: JEFF DENNY Interpreted By: Edmund Gorman MD, 08/10/2024 11:45 AM us Jeff Denny DO FLUOROSCOPY Final Resu lt * BONE DENSITY/DEXA (12/24/2021 10:48 AM CDT) Anatomical Region Laterality Modality Bone Bone Density 12/24/2021 11:4 3 AM CDT Narrative 12/24/2021 12:02 PM CDT IMAGING STUDIES: BONE DENSITY/DEXA ??DATE: 12/24/2021 10:47 AM CLINICAL HISTORY: Postmenopausal. No calcium replacement therapy. 81-year-old female with menopause at age 50. Osteoporosis. FINDINGS: LUMBAR SPINE L2-L4: BMD: 0.881 g/sq cm T-SCORE: -1.8 WHO CLASSIFICATION: Moderate osteopenia FRACTURE RISK: Low LEFT FEMORAL NECK: BMD: 0.631 T-SCORE: -2.0 WHO CLASSIFICATION: Very osteopenic FRACTURE RISK: ??Low COMPARISON STUDY: 05/22/2016. LUMBAR SPINE L2-L4: BMD: 0.888 T-SCORE: -1.7 WHO CLASSIFICATION: Moderate osteopenia FRACTURE RISK: Low LEFT FEMORAL NECK: BMD: 0.663 T-SCORE: -1.7 WHO CLASSIFICATION: Moderate osteopenia FRACTURE RISK: Low Recommendation. Instigation of calcium replacement therapy with repeat imaging in 2 years Ordered By: ESTHER MURPHY Interpreted By: Kash Acuña, 12/24/2021 11:43 AM Procedure Note Chao Acuña MD - 12/24/2021 IMAGING STUDIES: BONE DENSITY/DEXA DATE: 12/24/2021 10:47 AM CLINICAL HISTORY: Postmenopausal. No calcium replacement therapy.81-year-old female with menopause at age 50. Osteoporosis. FINDINGS: LUMBAR SPINE L2-L4: BMD: 0.881 g/sq cm T-SCORE: -1.8 WHO CLASSIFICATION: Moderate osteopenia FRACTURE RISK: Low LEFT FEMORAL NECK: BMD: 0.631 T-SCORE: -2.0 WHO CLASSIFICATION: Very osteopenic FRACTURE RISK: Low COMPARISON STUDY: 05/22/2016. LUMBAR SPINE L2-L4: BMD: 0.888 T-SCORE: -1.7 WHO CLASSIFICATION: Moderate osteopenia FRACTURE RISK: Low LEFT FEMORAL NECK: BMD: 0.663 T-SCORE: -1.7 WHO CLASSIFICATION: Moderate osteopenia FRACTURE RISK: Low Recommendation. Instigation of calcium replacement therapy with repeatimaging in 2 years Ordered By: ESTHER MURPHY Interpreted By: Kash Acuña, 12/24/2021 11:43 AM us Esther [place] DEXA Final Result from Last 3 Months or Most Recently Relevant to Health Maintenance Additional Health Concerns Active Problems Noted Date Diagnosed Date headache 03/28/2019 [place] [address] [address] [id number] Advance Directives Documents on File Type Date Recorded Patient Roller Gold Leaf Expl anation Power of Chaperon 05/06/2024 5:22 AM POA [facility] STATUTORY SHORT FORM Advance Directives and Living Will 05/06/2024 5:21 AM POLST * DNR (Latest Code Status on File) Date Activated Date Inactivated Comments 12/13/2023 11:54 AM 12/14/2023 2:03 PM * DNR Date Activated Date Inactivated Comments 03/08/2023 2:09 PM 03/10/2023 12:27 PM * DNR Date Activated Date Inactivated Comments 04/23/2021 4:01 PM 04/25/2021 5:04 PM * Full Code Date Activated Date Inactivated Comments 08/27/2020 10:32 PM 09/05/2020 3:33 PM * Full Code Date Activated Date Inactivated Comments 08/23/2020 2:25 AM 08/27/2020 8:50 PM Care Teams Patient Representative Relationship Specialty [place] [address] [facility] [facility] [address] [place] [address] PCP - General Nurse Practitioner Family 08/17/23 [place] Enriquez MD [address] [address] Jennifer [employer] Server CARDIOVASCULAR DISEASE 02/27/16 Elin Morales, RN [address] [place] [address] French Instructor (Ambulatory) REGISTERED NURSE 05/10/24
--- OUTSIDE RECORDS SUMMARY | 2024-10-20 18:02 | XMS_ITS | Encounter Summary ---
Author Organization [facility] Address Critical access hospital6 [facility] [place] [address] [place] [address] Care Team Providers Care Splunk Consultant Name Role Phone Montana Enriquez MD Unavailable [phone] Alyssa Stevens NP Primary Care Provider [phone] Elin Morales RN Unavailable [phone] Reason for Visit * Reason Onset Date Comments Refill Request 10/17/2024 Encounter Details Date Type Department Care Team (Late st Contact Info) Description 10/17/2024 Telephone [facility] Family & Internal Medicine [facility] [address] [place] [address] [place] [address] [facility] [address] [place] [address] Refill Request Social History Tobacco Use Types Packs/Day Years Used Date Smoking Tobacco: Never Passive Smoke Exposure: Past Smokeless Tobacco: Never Alcohol Use Standard Drinks/Week Comments No 0 (1 standard drink = 0.6 oz pur e alcohol) [facility] Utilities Answer Date Recorded In the [...] week 03/08/2023 How often do you attend chur ch or moravian services? 1 to 4 times per year 03/08/2023 Do you belong to any clubs o r organizations such as sikh groups, unions, fraternal or athletic groups, or [...] Recorded Patient Health Questionnaire-2 Score 0 12/13/2023 [facility] [place] of Occupat ional Health - Occupational Stress [...] place to sleep or slept in a skilled nursing (including now)? No 12/13/2023 Comments No Sex and Gender Information Value Date Recorded Sex Assigned at Female 09/09/2019 11:15 AM GUEST SERVICES AGENT Legal Sex Female 9:30 PM CDT Gender Identity Female 09/09/2019 11:15 AM GUEST SERVICES AGENT Sexual Orientation Straight 09/09/2019 11 :15 AM GUEST SERVICES AGENT Occupation Industry Job Start Date Job End Date Not on file Not on file Not on file Not on file documented as of this encounter Functional Status * Are you deaf or do you have serious difficulty hearing Answer Date of Assessment Author Status No 12/14/2023 11:02 AM CDT Anisha Abel R N Active * Are you blind or do you have serious difficulty seeing, even when wearing glasses? Answer Date of Assessment Author Status No 12/14/2023 11:02 AM CDT Anisha Abel R N Active * Do you have serious difficulty walking or climbing stairs? Answer Date of Assessment Author Status No 12/14/2023 11:02 AM CDT Anisha Abel R N Active * Do you have difficulty dressing or bathing? Answer Date of Assessment Author Status No 12/14/2023 11:02 AM CDT Page Kimberley Botello Active * Because of a physical, mental, or emotional condition, do you have difficulty doing errands alone such as visiting a doctor's office or shopping? Answer Date of Assessment Author Status Yes 12/14/2023 11:02 AM CDT Page Kimberley Botello Active documented as of this encounter Mental Status * Because of a physical, mental, or emotional condition, do you have serious difficulty concentrating, remembering, or making decisions? Answer Entry Date Author Status Yes 12/14/2023 11:02 AM CDT PageAnisha R N Active documented in this encounter Progress Notes * Ruthy Bolton MA - 10/17/2024 2:57 PM CST I have sent in both medications to the pharmacy. Thanks! T SERVICES AGENT * Elin Morales RN - 10/17/2024 2:23 PM CST Please address the following: Patient has been out of loratadine for a while now. Paramjit stated the pharmacy informed she needs to f/u with PCP. Patient was seen on 09/13/24 and has a 3 month f/u on 12/13/24. Continues to have nasal drainage. She is using Azelastine. Paramjit wants to know if PCP wants patient to take loratadine. If so,please send refill to [facility] in [place]. 2. Requesting memantine be refilled to [facility] in [place]. Thank you. T SERVICES AGENT documented in this encounter Plan of Treatment Upcoming Encounters Date Type Department Care Team (Late st Contact Info) Description 10/31/2024 8:20 AM GUEST SERVICES AGENT Office Visit [facility] Pul[facility]ology Specialty [facility] - [address] [address] Leo Gibson, DO [address] [facility] [address] [place] [address] 10/31/2024 1:00 PM GUEST SERVICES AGENT Office Visit [facility] Family & Internal Medicine - [address] [address] Alyssa Stevens, ASHLEY [address] [place] [address] 12/13/2024 10:00 AM CDT Office Visit [facility] Family & Internal Medicine - [address] [address] [place] [address] [place], [place] [id number] documented as of this encounter Goals Goal Patient Goal Type Associated Problems Recent Progress Patient-Stated? Author Free from falls/injury from falls- Dementia General On track(2024 9:15 AM GUEST SERVICES AGENT) Elin Pittman, RN Note: 08/11/24: Denies any recent falls [...] at this time. Establish Plan for Symptom Monitoring-[facility] asthma or COPD exacerbation. Lifestyle On track(2024 9:15 AM GUEST SERVICES AGENT) Elin Pittman, RN Note: Patient will monitor s/s of bronchial asthma and COPD exacerbation. Report the onset of one or more of these s/s, if life threatening to call 911. Chest tightness, coughing, wheezing or increased sob. Managing OA Lifestyle On track(2023 5:16 PM CDT) Elin Pittman RN Note: Protect joints from overuse Take medication as directed Physical activity such as walking for 30 minutes most days or as directed by provider To reduce pain /stiffness: use cold or heat Keep healthy weight and diet Use cane to ambulate Stretching Establish Regular Follow-Ups with PCP Lifestyle On track(2024 9:15 AM GUEST SERVICES AGENT) Elin Pittman, RN Note: 10/20/24: Confirmed appointment with PCP [...] 9:40 am. Outpatient Goal Care Plan headache Nasima Valle RN Establish Plan for Symptom Monitoring Care Plan headache No Nasima Coates RN documented as of this encounter Visit Diagnoses Not on filedocumented in this encounter Additional Health Concerns Active Problems Noted Date Diagnosed Date headache 03/28/2019 Assessment Noted Time PHQ-9 Depression Total Score: 8 05/23/20 22 4:01 PM CDT documented as of this encounter Care Teams Splunk Consultant Relationship Specialty [place] [address] [facility] [address] [place] [address] PCP - General Nurse Practitioner Family 08/17/23 Montana Enriquez MD [facility]. [address] [address] Jennifer Magazine Repairer CARDIOVASCULAR DISEASE 02/27/16 Elin Morales, RN [facility] [place] [address] Cutter Down (Ambulatory) REGISTERED NURSE 05/10/24 documented as of this encounter
--- OUTSIDE RECORDS SUMMARY | 2024-10-20 18:02 | XMS_ITS | Encounter Summary ---
Author Organization [facility] Address [facility] [place] [address] [place] [address] Care Team Providers Care Geological Science Teacher Name Role Phone Montana Enriquez MD Unavailable [phone] Emilia Alarcon MD Primary Care Provider [phone] Emilia Alarcon MD Primary Care Provider + [phone] Linda Lynn VENETIAN BLIND MAKER Primary Care Provider Nasima Meneses RN Unavailable [phone] Priti Manzanares RN Unavailable Unavailab Esther Hathaway Primary Care Provider [phone] Elin Morales RN Unavailable + Elin Morales RN Unavailable + Reshma Salguero PA-C Primary Care Provider [phone] Alyssa Stevens VENETIAN BLIND MAKER Primary Care Provider [phone] Elin Morales RN Unavailable + Elin Morales RN Unavailable + Elin Morales RN Unavailable + Encounter Details Date Type Department Care Team (Late st Contact Info) Description 10/06/2015 Abstract [facility] CONVERSION [address] [place] [address] Mehreen Monroy MD Social History Tobacco Use Types Packs/Day Years Used Date Smoking Tobacco: Never Comments Unknown Sex and Gender Information Value Date Recorded Sex Assigned at Female 09/09/2019 11:15 AM CARE CONSULTANT Legal Sex Female 9:30 PM CDT Gender Identity Female 09/09/2019 11:15 AM CARE CONSULTANT Sexual Orientation Straight 09/09/2019 11 :15 AM CARE CONSULTANT documented as of this encounter Plan of Treatment Upcoming Encounters Date Type Department Care Team (Late st Contact Info) Description 10/31/2024 8:20 AM CARE CONSULTANT Office Visit [facility] Pulmonology Specialty Clinic [address] [phone] Leo Gibson DO [address] [place] [address] 10/31/2024 1:00 PM CARE CONSULTANT Office Visit [facility] Family & Internal Medicine - [address] [phone] Alyssa Stevens, ASHLEY [address] [facility] [place] [address] 12/13/2024 10:00 AM CDT Office Visit [facility] Family & Internal [address] [phone] [place] [address] [address] documented as of this encounter Visit Diagnoses Not on filedocumented in this encounter Additional Health Concerns Infection Onset Date Last Indicated Resolved Time COVID-19 Rule Out 07/18/2020 07/18/2020 07/19/2020 10:50 PM CDT COVID-19 Rule Out 08/22/2020 08/23/2020 08/23/2020 7:46 AM CARE CONSULTANT COVID-19 Rule Out 09/03/2020 09/03/202009/0409/04/2020 11:07 AM CARE CONSULTANT COVID-19 Rule Out 04/23/2021 04/23/2021 04/23/2021 2:48 PM CDT COVID-19 Rule Out 06/07/2021 06/07/2021 06/08/2021 10:20 PM CDT COVID-19 Rule Out 11/04/2021 11/04/2021 11/04/2021 11:19 AM CARE CONSULTANT COVID-19 Rule Out 10/01/2022 10/01/2022 10/01/2022 2:02 PM CARE CONSULTANT COVID-19 Rule Out 10/01/2022 10/01/2022 10/01/2022 2:07 PM CARE CONSULTANT COVID-19 Rule Out 10/01/2022 10/01/2022 10/02/2022 6:34 PM CARE CONSULTANT COVID-19 Rule Out 12/14/2022 12/14/2022 12/14/2022 5:41 PM CDT COVID-19 Rule Out 05/21/2023 05/21/2023 05/21/2023 11:38 AM CDT COVID-19 Rule Out 09/10/2023 09/10/2023 09/10/2023 9:32 AM CARE CONSULTANT COVID-19 Confirmed 09/10/2023 09/10/2023 12:32 AM CARE CONSULTANT COVID-19 Rule Out 12/13/2023 12/13/2023 12/13/2023 8:23 AM CDT COVID-19 Rule Out 01/27/2024 01/27/2024 01/27/2024 4:20 PM CDT COVID-19 Rule Out 04/12/2024 04/12/2024 04/12/2024 5:24 PM CDT COVID-19 Rule Out 2024 2024 2024 2:40 PM CDT documented as of this encounter Care Teams Geological Science Teacher Relationship Specialty Start Date End Date Emilia Alarcon MD [facility]. [address] [address] PCP - General INTERNAL MEDICINE 6/1/16 6/25/19 Emilia Alarcon MD [address] [address] PCP - General 11/15/14 02/26/16 Linda Lynn, VENETIAN BLIND MAKER [address] [address] PCP - General NURSE PRACTITIONER 03/23/19 08/25/20 [place] [address] [place] [address] PCP - General PHYSICIAN SUPERVISOR [employer] P[employer]ING 08/26/20 05/28/23 Reshma Salguero PA-C [address] [place] [address] PCP - General PHYSICIAN SUPERVISOR [employer] 05/29/23 08/16/23 [place] [address] [address] PCP - General Nurse Practitioner Family 08/17/23 Montana Enriquez MD [address] [address] [place] CARDIOVASCULAR DISEASE 02/27/16 Nasima Coates, RN [address] [place] [address] Manager Cardiovascular (Ambulatory) REGISTERED NURSE 04/12/19 08/23/20 Priti Manzanares RN Care Manager (Ambulatory) REGISTERED NURSE 08/24/20 03/14/21 Elin Morales RN [address] [place] [address] Manager Cardiovascular (Ambulatory) REGISTERED NURSE 04/25/21 11/25/21 Elin Morales, RN [address] [place] [address] Manager Cardiovascular (Ambulatory) REGISTERED NURSE 03/09/23 04/08/23 Elin Morales RN [address] [place] [address] Manager Cardiovascular (Ambulatory) REGISTERED NURSE 12/14/23 01/05/24 Elin Morales RN [address] [place] [address] Manager Cardiovascular (Ambulatory) REGISTERED NURSE 01/06/24 01/11/24 Elin Morales, RN [address] [place] [address] Manager Cardiovascular (Ambulatory) REGISTERED NURSE 05/10/24 documented as of this encounter
--- OUTSIDE RECORDS SUMMARY | 2024-10-20 18:02 | XMS_ITS | Clinical Summary ---
Author Organization [facility] Address [address] [place] [address] Phone Care Team Providers Care Veterinary Pharmacologist Name Role Phone Emilia Alarcon MD Primary Care Provider Allergies Active Allergy Reactions Criticality Noted Date Comments Codeine Unknown 03/07/2016 Morphine Unknown 03/07/2016 Medications donepezil (ARICEPT) 5 MG Tablet Take 5 mg by mouth daily. 6 Active ipratropium (ATROVENT HFA) 17 MCG/ACT Aerosol Solution Take 2 Puffs by mouth daily. 6 Active traZODone (DESYREL) 100 MG Tablet Take 100 mg by mouth nightly. 5 Active Cyanocobalamin (VITAMIN B 12 PO) by Injection route. Active budesonide-form oterol fumarate (SYMBICORT) 160-4.5 MCG/ACT Aerosol take 2 Puffs by inhalation 2 times daily. Active dorzolamide (TRUSOPT) 2 % Solution Place 1 Drop in affected eye(s) 3 times daily. 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 10/22/2017 Family History Medical History Relation Name Comments No Known Problems Brother No Known Problems Mother No Known Problems Sister Relation Name Status Comments Brother Alive Father Mother Sister Alive Social History Tobacco Use Types Packs/Day Years Used Date Smoking Tobacco: Former Cigarettes Smokeless Tobacco: Never Alcohol Use Standard Drinks/Week Comments No 0 (1 standard drink = 0.6 oz pur e alcohol) Comments Unknown Sex and Gender Information Value Date Recorded Sex Assigned at Not on file Legal Sex Female 2:03 PM NATURAL GAS PLANT TECHNICIAN Gender Identity Not on file Sexual Orientation Not on file Last Filed Vital Signs Vital Sign Reading Time Taken Comments Blood Pressure 122/60 05/13/2018 9:18 AM CDT Pulse 74 05/13/2018 9:18 AM CDT Temperature 36.7 ??C (98 ??F) 05/13/2018 9:18 AM CDT Respiratory Rate 18 10/22/2017 9:13 AM NATURAL GAS PLANT TECHNICIAN Oxygen Saturation 97% 05/13/2018 9:18 AM CDT Inhaled Oxygen Concentration - - Weight 57.6 kg (127 lb) 05/13/2018 9:18 AM CDT Height 157.5 cm (5' 2 ) 04/15/2018 8:14 AM CDT Body Mass Index 23.23 04/15/2018 8:14 AM CDT Plan of Treatment Health Maintenance Due Date Last Done Comments DEXA Bone Density 1940 Hepatitis C Virus (HCV) Screening 1940 TdaP Immunization 1940 Zoster Immunization (1 of 2) 1990 Respiratory Syncytial Virus (RSV) Immunization (Adult) (1 - 1-dose 75+ series) 2015 Influenza Immunization (#1) 05/29/202405/29, 07/15/2016, 07/12/2015, Additional history exists SARS-COV-2 Immunization (2023- season) 2024 Pneumococcal Immunization (50+ years) Completed 08/04/2016, 07/26/2015, 09/09/2014 Pneumococcal Immunization Combined Discontinued 08/04/2016, 07/26/2015, 09/09/2014 Hepatitis B Immunization Aged Out No longer eligible based on patient's age to complete this topic Meningococcal Immunization (ACWY) Aged Out No longer eligible based on patient's age to complete this topic Rotavirus Immunization Aged Out No lo nger eligible based on patient's age to complete this topic [place] [address] [place] [address] MEDICARE C ESSENCE Care Teams Veterinary Pharmacologist Relationship Specialty [place] [address] [place] [address] PCP - General Internal Medicine 10/22/17
--- OUTSIDE RECORDS SUMMARY | 2024-10-20 18:02 | XMS_ITS | Encounter Summary ---
Author Organization [facility] Address [facility] [place] [address] [place] [address] Care Team Providers Care Laboratory Sampler Name Role Phone Montana Enriquez MD Unavailable [phone] Alyssa Stevens NP Primary Care Provider [phone] Gali Morales RN Unavailable [phone] Reason for Visit * Reason Onset Date Comments Care Management 10/17/2024 Encounter Details Date Type Department Care Team (Late st Contact Info) Description 10/17/2024 Patient Outreach [facility] Family & Internal Medicine [address] [address] Gali Morales, RN [address] [place] [address] Care Management Social History Tobacco Use Types Packs/Day Years [...] often do you attend chur ch or sabianism services? 1 to 4 times per year 03/08/2023 Do you belong to any clubs o r organizations such as orthodox groups, unions, fraternal or athletic groups, or [...] Recorded Patient Health Questionnaire-2 Score 0 12/13/2023 [facility] [place] [facility] - Occupational Stress [...] place to sleep or slept in a halfway (including now)? No 12/13/2023 Comments No Sex and Gender Information Value Date Recorded Sex Assigned at Female 09/09/2019 11:15 AM BRANCH OFFICE MANAGER Legal Sex Female 9:30 PM CDT Gender Identity Female 09/09/2019 11:15 AM BRANCH OFFICE MANAGER Sexual Orientation Straight 09/09/2019 11 :15 AM BRANCH OFFICE MANAGER Occupation Industry Job Start Date Job [...] Assessment Author Status No 12/14/2023 11:02 AM Anisha Shepherd R N Active * Do you have difficulty dressing or bathing? Answer Date of Assessment Author Status No 12/14/2023 11:02 AM Anisha Shepherd R N Active * Because of a physical, mental, or emotional condition, do you have difficulty doing errands alone such as visiting a doctor's office or shopping? Answer Date of Assessment Author Status Yes 12/14/2023 11:02 AM Anisha Shepherd R N Active documented as of this encounter Mental Status * Because of a physical, mental, or emotional condition, do you have serious difficulty concentrating, remembering, or making decisions? Answer Entry Date Author Status Yes 12/14/2023 11:02 AM Anisha Shepherd R N Active documented in this encounter Progress Notes * Gali Morales RN - 10/17/2024 2:05 PM CST Chronic Care Management: Patient need addressed: Please address the following: Patient has been out of loratadine for a while now. Paramjit stated the pharmacy informed she needs to f/u with PCP. Patient was seen on 09/13/24 and has a 3 month f/u on 12/13/24. Continues to have nasal drainage. She is using Azelastine. Paramjit wants to know if PCP wants patient to take loratadine. If so,please send refill to [facility] in [place]. 2. Requesting memantine be refilled to [facility] in [place]. The above information sent to PCP and PCP nursing team. Paramjit is aware. Patient Status: Reviewed recent chart notes in [facility]. Patient stated she is doing okay. She is not doing a lot around the house right now and denies being sob or needing to use her albuterol inhaler. She continues tohave clear nasal drainage. Last seen PCP on 09/13/24. According to PCP note patient should f/u in 3months or sooner if needed. Offered to schedule a follow up appointment and patient is agreeable. She handed phone to her to schedule. Scheduled for 12/13/24 at 10:00 am. Reminded Paramjit that patient is scheduled to see on 10/31/24 at 8:20 am. Paramjit confirms memantine is really helping patient. She has about one week left and needs a refill. Message sent to PCP and PCP nursing team. Patient continues to have clear nasal drainage. Paramjit stated this is chronic. She hasn't taken loratadine now for some time. Stated the last time he attempted toget it filled he was informed she needing to be seen. Informed Paramjit that patient was seen on 09/13/24 and CC will send a message to PCP to find out if she should start taking again. Paramjit verbalizes understanding. Stated he will receive notification from [facility] if medication gets filled. Opportunity provided to answer questions. No further needs noted at this time. Encouraged to call before 12/13/24 at the onset of any changes. Paramjit verbalizes understanding and thanked CC for calling. Plan of Care: pain coordinator will continue to follow up by phone, provide resources when needed, educate on disease management, and assess chronic conditions. Patient Goals: Goals Addressed This Visit's Progress Establish Plan for Symptom Monitoring-Bronchial asthma or COPD exacerbation. On track Patient will monitor s/s of bronchial asthma and COPD exacerbation. Report the onset of one or moreof these s/s, if life threatening to call 911. Chest tightness, coughing, wheezing or increased sob. Establish Regular Follow-Ups with PCP On track 10/17/24: Scheduled 3 month f/u on 12/13/24 at 10:00 am. 08/11/24: Scheduled 3 month f/u on 09/13/24 at 10:40 am with PCP. 07/13/24: Informed Paramjit to schedule 3 month f/u with PCP from May or sooner if patient needs to be seen. 06/28/24: Patient keeps regularly scheduled appointments. 06/16/24: Confirmed appointment with PCP on 06/20/24 at 9:40 am. Free from falls/injury from falls- Dementia On track 08/11/24: Denies any recent falls at this time. Patient is making beds today and keeping active. She will take short breaks when needed. She has her ; Paramjit for support. 07/13/24: Denies any falls at this time. 06/28/24: Denies any falls since she was last seen by PCP in the office on 06/20/24. 06/16/24: Denies any issues at this time. Upcoming Visit Appointments: Future Appointments Date Time Provider Department Center 10/31/2024 8:20 AM Leo Gibson DO [facility] 12/13/2024 10:00 AM Alyssa Stevens NP [facility] Quality care gaps: Health Maintenance Topic Date Due ASCVD Statin Never done Annual Medicare Wellness Visit Never done RSV Immunization or 60+ Years (1 - 1-dose 75+ series) Never done Zoster Vaccines (2 of 3) 02/13/2025 (Originally 09/17/2012) COVID-19 Vaccine ( - 2023- season) 2025 (Originally 05/29/2024) DTaP, Tdap and Td Vaccines (1 - Tdap) 04/04/2030 (Originally 07/31/2020) PHQ-2 (Physician [place]) 12/12/2024 Dexa Scan (General) Completed Influenza Adult Completed Pneumococcal Vaccine: 65+ Years Completed Meningococcal Vaccine Aged Out Meningococcal B Vaccine Aged Out RSV Immunizations Under 20 Months Aged Out Problem List: Patient Active Problem List Diagnosis Peripheral vascular disease ([facility]/HCC) Gastroesophageal reflux disease without esophagitis Bronchial asthma ([facility]) Bronchiectasis ([facility] HHS/HCC) Chronic open angle glaucoma COPD, mild ([facility]/HCC) Iron deficiency anemia due to sideropenic dysphagia Essential tremor Urinary incontinence Gait disturbance 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 Insomnia Irritable bowel syndrome Lung mass Migraines Neck pain Age related osteoporosis, unspecified pathological fracture presence Peripheral neuropathy Restless legs syndrome (RLS) Spinal stenosis of lumbar region at multiple levels Vitamin B12 deficiency Vitamin D deficiency Hypertension Atherosclerosis of aorta ([facility]/HCC) Atherosclerosis of arteries of extremities ([facility]) Gastric bypass status for obesity Hay fever Cigarette smoker Fistula Urinary tract infection with hematuria, site unspecified History of transient ischemic attack (TIA) Closed fracture of nasal bone with routine healing, subsequent encounter BMI 31.0-31.9,adult Closed displaced fracture of right femoral neck ([facility] HHS/HCC) 3-part fracture of surgical neck of right humerus, initial encounter for closed fracture Physical deconditioning Weakness of right lower extremity Esophageal dysphagia Dementia of the Alzheimer's type, with late onset, with delusions ([facility] HHS/HCC) Moderate episode of recurrent major depressive disorder ([facility]) Aspiration pneumonia ([facility]) Chronic pansinusitis Gastroesophageal reflux disease with esophagitis, unspecified whether hemorrhage At high risk for falls Pneumonia Delusional disorders ([facility]) Hypertensive heart disease with heart failure ([facility]) Longstanding persistent atrial fibrillation ([facility]) Stage 3a chronic kidney disease ([facility]) Care Management Medications: Current Outpatient Medications Medication Sig Dispense Refill acetaminophen (TYLENOL) 500 MG tablet Take 2 tablets (1,000 mg total) by mouth 3 (three) times daily as needed for Pain. albuterol sulfate HFA 108 (90 Base) MCG/ACT inhaler Inhale 2 puffs into the lungs every 6 (six) hours as needed for Wheezing. aspirin 81 MG chewable tablet Chew 1 tablet (81 mg total) by mouth daily. AZELASTINE 137 MCG/SPRAY nasal spray 2 sprays by Nasal route 2 (two) times daily. Calcium Citrate-Vitamin D (CITRUS CALCIUM 1500 + D OR) Take 1 tablet by mouth daily. cyanocobalamin 5000 MCG/ML solution Take 0.02 mLs (100 mcg total) by mouth once a week. doxycycline hyclate (VIBRA-TABS) 100 MG tablet Take 1 tablet (100 mg total) by mouth every 12 (twelve) hours. fluticasone propionate (FLONASE) 50 MCG/ACT nasal spray 2 sprays by Nasal route daily as needed. Indications: Allergic Rhinitis 16 g 6 ipratropium (ATROVENT) 0.03 % nasal spray 2 sprays by Nasal route 2 (two) times daily. loratadine (CLARITIN) 10 MG tablet TAKE 1 TABLET BY MOUTH DAILY. FOLLOW UP WITH PROVIDER FOR FURTHER REFILLS 90 tablet 3 memantine (NAMENDA) 10 MG tablet take 1 tablet by mouth daily 90 tablet 0 montelukast (SINGULAIR) 10 MG tablet TAKE 1 TABLET BY MOUTH EVERYDAY AT BEDTIME 90 tablet 1 omeprazole (PRILOSEC) 20 MG capsule Take 1 capsule (20 mg total) by mouth daily. 90 capsule 3 traZODone (DESYREL) 150 MG tablet TAKE 1 TABLET BY MOUTH NIGHTLY AT BEDTIME. 90 tablet 0 No current facility-administered medications for this visit. Chronic Care Management- Time Spent with Patient Time spent with patient (minutes): 14 Time spent performing chart review (minutes): 9 Total time (minutes): 23 GALI MORALES, TANA I reviewed the patient's status and education provided by GALI MORALES RN. I agree with the findings and recommendations made. Cosigned by Alyssa Stevens NP at 10/17/2024 3:26 PM BRANCH OFFICE MANAGER CH OFFICE MANAGER CH OFFICE MANAGER documented in this encounter Plan of Treatment Upcoming Encounters Date Type Department Care Team (Late st Contact Info) Description 10/31/2024 8:20 AM BRANCH OFFICE MANAGER Office Visit [facility] [address] [phone] Leo Gibson DO [address] [facility] [address] [place] [address] 10/31/2024 1:00 PM BRANCH OFFICE MANAGER Office Visit [facility] Family & Internal Medicine [address] [address] [place] [address] [facility] [address]. [place], [place] [id number] 12/13/2024 10:00 AM CDT Office Visit [facility] Family & Internal Medicine [address] [address] [place] [address] [facility] [address] [place], [place] [id number] documented as of this encounter Goals Goal Patient Goal Type Associated Problems Recent Progress Patient-Stated? Author Free from falls/injury from falls- Dementia General On track(2024 9:15 AM BRANCH OFFICE MANAGER) No Gali Morales RN Note: 08/11/24: Denies any recent [...] at this time. Establish Plan for Symptom Monitoring-[facility] asthma or COPD exacerbation. Lifestyle On track(2024 9:15 AM BRANCH OFFICE MANAGER) Gali Pittman RN Note: Patient will monitor s/s of bronchial asthma and COPD exacerbation. Report the onset of one or more of these s/s, if life threatening to call 911. Chest tightness, coughing, wheezing or increased sob. Managing OA Lifestyle On track(2023 5:16 PM CDT) Gali Pittman RN Note: Protect joints from overuse Take medication as directed Physical activity such as walking for 30 minutes most days or as directed by provider To reduce pain /stiffness: use cold or heat Keep healthy weight and diet Use cane to ambulate Stretching Establish Regular Follow-Ups with PCP Lifestyle On track(2024 9:15 AM BRANCH OFFICE MANAGER) Gali Pittman RN Note: 10/20/24: Confirmed appointment with [...] Plan for Symptom Monitoring Care Plan headache Nasima Valle RN documented as of this encounter Visit Diagnoses Diagnosis COPD, mild ([facility])- Primary Chronic airway obstruction, not elsewhere classified Dementia of the Alzheimer's type, with late onset, with delusions ([facility]) Senile dementia with delusional features Bronchial asthma ([facility]) Unspecified asthma documented in this encounter Additional Health Concerns Active Problems Noted Date Diagnosed Date headache 03/28/2019 Assessment Noted Time PHQ-9 Depression Total Score: 8 05/23/20 22 4:01 PM CDT documented as of this encounter Care Teams Laboratory Sampler Relationship Specialty Start [place] [address] [address] PCP - General Nurse Practitioner Family 08/17/23 Montana Enriquez MD [address] [address] [employer] Fermentation Operator CARDIOVASCULAR DISEASE 02/27/16 Gali Morales, RN [address] [place], [place] [address] Drug Safety Assistant (Ambulatory) REGISTERED NURSE 05/10/24 documented as of this encounter
--- OUTSIDE RECORDS SUMMARY | 2024-10-20 18:02 | XMS_ITS | Continuity of Care Document ---
Author Organization [facility] [place] [address] [facility] [address] [place] [address] Phone Care Team Providers Care Warp Yarn Sorter Name Role Phone Michelle Finnegan Unavailable Unavailable [...] Diagnoses Date Provider Providers Copied on Encounter [facility], [address], [place], [place], [id number], [place] tel:[phone] [facility] No Information 0 Sivan Martinez. [facility] , [address], [place], [address], [place]. tel:[phone] Referring Provider: [facility] [facility] [address], [place], [address]. tel:[phone] Office/outpat ient Visit, Est [facility], [address] [place] [address] [address], [place], [place], [id number], tel:[phone] [facility] No Information 3-201 0 Sivan Dominguez [address] , [address], [place], [place], [facility], . tel:[phone] Office/outpat ient Visit, [facility], [address] [place] [address] [address], [place], [place], [id number], [phone] [facility] No Information 5-200 9 Sivan Martinze. [address] [facility] , [address], [place], [place], [facility], . tel:[phone] Referring Provider: Michelle Aragon, [facility] [address], [place], [facility]. tel:[phone] [facility], [address] [place] [address] [address], [place], [place], [id number], tel:[phone] [facility] No Information 1200 9 Sivan Martinez. [address] [facility] , [address], [place], [place], [facility], . tel:[phone] Referring Provider: Michelle Aragon, [address], [place], [place], [facility]. tel:[phone] Office/outpat ient Visit, [facility], [address] [place] [address] [address], [place], [place], [id number], [place] tel:[phone] [facility] No Information 0 200 9 Sivan Martinez. [address] [facility] , [address], [place], [place], [facility], . tel:[phone] Office/outpat ient Visit, [facility], [address] [place] [address] [address], [place], [place], [id number], tel:[phone] [facility] No Information Dec-0 9-200 8 Sivan Martinez. [address] , [address], [place], [place], [facility], [place]. tel:[phone] Referring Provider: Michelle Aragon, [facility] [address], [place], [facility]. tel:[phone] Office/outpat ient Visit, [facility], [address] [place] [address] [address], [place], [place], [id number], [place] tel:[phone] [facility] No Information Mar-2 9-200 8 Sivan Martinez. [address] , [address], [place], [facility], [place]. tel:[phone] [facility], [address] [place] [address] [address], [place], [place], [id number], [place] tel:[phone] [facility] No Information Mar-1 -200 8 Sivan Martinez. [address] , [address], [place], [facility], [place]. tel:[phone] Referring Provider: Michelle Aragon, [facility] [address], [place], [facility]. tel:[phone] [facility], [address] [place] [address] [address], [place], [place], [id number], [place] tel:[phone] [facility] No Information Mar-0 1-200 8 Sivan Dominguez [address] , [address], [place], [facility], [place]. tel:[phone] Referring Provider: Michelle Aragon, [facility] [address], [place], [facility]. tel:[phone] [facility], [address], [place], [place], [id number], [place] tel:[phone] [facility] No Information Apr-0 8-200 8 Sivan Martinez. [address] , [address], [place], [address], [place]. tel:[phone] Referring Provider: Michelle Aragon, [address] [facility] [address], [place], [address]. tel:[phone] Family History Family Member Type Diagnosis Age At Onset No Information Payers Payer name Insurance type Covered alliance party ID Authorannie leonard(s) [facility] Commercial CI [id number] Social History Type Description Quantity Date Captured [...]
== END 2024-10-18 14:34 | disposition home or self-care (01) ==
PROVIDERS: Emergency Medicine; Emergency Provider Physician Assistant; PCP Nurse Practitioner Family
DX: J18.9 Pneumonia, unspecified organism (principal); R31.1 Benign essential microscopic hematuria; K21.9 Gastro-esophageal reflux disease without esophagitis; G30.9 Alzheimer's disease, unspecified; F02.80 Dementia in other diseases classified elsewhere, unspecified severity, without behavioral disturbance, psychotic disturbance, mood disturbance, and anxiety; Z20.822 Contact with and (suspected) exposure to COVID-19; I25.2 Old myocardial infarction; M81.0 Age-related osteoporosis without current pathological fracture; Z98.84 Bariatric surgery status; Z87.891 Personal history of nicotine dependence
CPT/HCPCS: 36415; 71046; 71275; 80053; 81001; 83690; 83880; 84484; 85025; 85610; 85730; 87637; 93005; 99284; A9270; Q9967

== ENCOUNTER 2025-03-18 07:19 | Emergency (ER) | payer OTHER, SELFPAY ==
[2025-03-18] VITALS (7 sets, daily range): BP systolic 110–178; BP diastolic 66–75; PULSE 70–82; RESP 16–21; TEMP 36.7; O2SAT 94–100
--- NOTE | ~2025-03-18 | CT_ITS ---
EXAMINATION: CTA chest PE protocol DATE: 03/18/2025 09:35 INDICATION: Right-sided chest pain, shortness of breath and congestion TECHNIQUE: Computed tomography (CT) pulmonary angiogram of the chest was performed with 100 mL Omnipa que-350 intravenous contrast. Additional 3D reconstructions utilizing coronal maximum intensity proje ction (MIP) were performed. Automated exposure control and iterative reconstruction technique were em ployed. The dose-length product was 162.65 mGy-cm. COMPARISON: None FINDINGS: No pulmonary embolism. Unchanged elevation the right hemidiaphragm and band of chronic discoid atelec tasis/scarring in the right upper lobe along the minor fissure. There are new patchy groundglass opac ities in the more cephalad right upper lobe suspicious for pneumonia. No pulmonary edema. Tiny right pleural effusion. Heart size is normal. Small amount of atherosclerotic coronary artery calcific loca tion. No pericardial effusion. Enlargement of the central pulmonary arteries consistent with pulmonar y arterial hypertension. Thoracic aorta is normal in caliber with no dissection. No pathologically en larged thoracic lymphadenopathy. No significant change of prior gastric bypass procedure. Small slidi ng-type hiatal hernia. Thoracic kyphosis with moderate spondylosis and chronic mild anterior wedging at T9-T11. IMPRESSION: 1. No pulmonary embolism. 2. Tiny right pleural effusion and new patchy groundglass opacities in the right upper lobe consisten t with pneumonia. 3. Chronic right upper lobe discoid atelectasis/scarring in the minor fissure with unchanged elevatio n right hemidiaphragm. 4. Enlargement of the central pulmonary arteries consistent with pulmonary arterial hypertension. 4. Small sliding-type hiatal hernia with change of prior gastric bypass procedure. Reviewed, dictated and finalized at location A. IMPRESSION: 1. No pulmonary embolism. 2. Tiny right pleural effusion and new patchy groundglass opacities in the righ t upper lobe consistent with pneumonia. 3. Chronic right upper lobe discoid atelectasis/scarring in the minor fissure w ith unchanged elevation right hemidiaphragm. 4. Enlargement of the central pulmonary arteries consistent with pulmonary kash rial hypertension. 4. Small sliding-type hiatal hernia with change of prior gastric bypass procedu re.
--- NOTE | ~2025-03-18 | XR_ITS ---
EXAMINATION: XR chest 2V DATE: 03/18/2025 08:40 INDICATION: Cough and shortness of breath TECHNIQUE: PA and lateral views of the chest were obtained. COMPARISON: Chest radiograph and CT dated 10/18/[address] dated 05/27/2024 FINDINGS: Unchanged elevation right hemidiaphragm with airspace opacity extending superolaterally from the righ t hilum corresponding to discoid atelectasis/scarring on CT. Calcified nodule at the lateral left mid lung zone consistent with old granulomatous disease. No new airspace opacities, pulmonary edema, pleu ral effusion or pneumothorax. Heart size is normal. Postoperative changes in the epigastric region an d small hiatal hernia. IMPRESSION: 1. Unchanged opacity in the right midlung zone corresponding to chronic discoid atelectasis/scarring on CT. No other acute cardiopulmonary disease. 2. Small hiatal hernia. Reviewed, dictated and finalized at location A.
--- NOTE | 2025-03-18 07:32 | ECG_ITS ---
Test Date: 2025-03-18 07:36:07 Measurements Intervals [place] Rate: 70 P: 18 OR: 169 QRS: -56 QRSD: 124 T: 18 QT: 386 QTc: 418 Interpretive Statements SINUS RHYTHM INCOMPLETE RIGHT BUNDLE BRANCH BLOCK LEFT ANTERIOR FASCICULAR BLOCK CANNOT R/O SEPTAL INFARCT, AGE INDETERMINATE BASELINE ARTIFACT- I, V2 ABNORMAL ECG Compared to ECG 10/18/2024 11:33:42 NO SIGNIFICANT CHANGE Electronically Signed On 03-18-2025 08:34:15 CDT by Colton Alcala D.O.
[2025-03-18 08:13] LABS: Basophils Percent Auto 0.3 % (0.2-1.2); Eosinophils Percent Auto 0.5 % (0-4.4); Hematocrit 36.7 % (37.0-47.0); Hemoglobin 11.3 g/dL (12.0-15.0); Immature Granulocyte Absolute 0.05 K/mm3 (0.00-0.031); Immature Granulocyte Percent A 0.6 % (0-0.5); Lymphocytes Absolute Auto 1.12 K/mm3 (0.9-3.2); Lymphocytes Percent Auto 12.9 % (18.3-44.2); Mean Corpuscular HGB Conc 30.8 g/dl (32-36); Mean Corpuscular Hemoglobin 25.6 pg (26-34); Mean Platelet Volume 8.3 fl (7.4-10.4); Monocytes Absolute Auto 0.5 K/mm3 (0.1-0.6); Monocytes Percent Auto 5.9 % (2.6-8.5); Neutrophils Absolute Auto 6.9 K/mm3 (1.3-6.7); Neutrophils Percent Auto 79.8 % (45.5-73.1); Platelet Count Result 241 k/mm3 (150-375); Red Blood Count 4.42 M/mm3 (4.2-5.4); Red Cell Distribution Width 16.1 % (11.5-14.5); White Blood Count 8.7 K/mm3 (4.5-10.0)
[2025-03-18 08:23] LABS: Alanine Aminotransferase 13 U/L (6-35); Albumin Level 4.1 g/dL (3.5-5.1); Alkaline Phosphatase 84 U/L (38-126); Anion Gap 10 mmol/L (4-12); Aspartate Amino Transferase 22 U/L (14-36); Bilirubin,Total 0.6 mg/dL (0.2-1.3); Blood Urea Nitrogen 16 mg/dL (7-17); Calcium 9.2 mg/dL (8.4-10.2); Carbon Dioxide 24 mmol/L (22-30); Chloride 105 mmol/L (98-107); Estimated CRCL calculation 34 ml/min; Estimated Glomerular Filt Rate 60; Glucose 96 mg/dL (65-110); Potassium 3.6 mmol/L (3.4-5.0); Sodium 139 mmol/L (137-145); Total Protein 6.8 g/dL (6.3-8.2)
--- NOTE | 2025-03-18 08:46 | ECG_ITS ---
Test Date: 2025-03-18 08:51:18 Measurements Intervals [place] Rate: 68 P: 10 NC: 174 QRS: -52 QRSD: 128 T: 15 QT: 383 QTc: 409 Interpretive Statements SINUS RHYTHM INCOMPLETE RIGHT BUNDLE BRANCH BLOCK LEFT ANTERIOR FASCICULAR BLOCK CANNOT R/O SEPTAL INFARCT, AGE INDETERMINATE ABNORMAL ECG Compared to ECG 03/18/2025 07:36:07 NO SIGNIFICANT CHANGE Electronically Signed On 03-18-2025 09:15:06 CDT by Colton Alcala D.O.
--- NOTE | 2025-03-18 08:47 | ED.SOB ---
HPI - SOB/Dyspnea General Chief Complaint: Shortness of Breath/Dyspnea Stated Complaint: SOB, cough, body ache Time Seen by Provider: 03/18/25 07:26 Source: patient and family Limitations: no limitations History of Present Illness HPI Narrative: Patient presents with report of shortness of breath, productive cough of yellow phlegm but no blood. She is also having body aches. Her with whom she lives has not been sick. She is not on any anticoagulation; only 81 mg aspirin. She feels congested and has right-sided chest pain especially worse deep breaths. She has a history of frequent pneumonia. Her symptoms started yesterday and seemed to have worsened overnight. Also has a history of Alzheimer's. Denies any cardiac history or seeing a refrigeration operator. She has been having chills. She notes a history of sinus issues but denies any other underlying respiratory issues. Denies smoking. Cardiac risk factors HTN: 0 HLD:0 DM:0 Obese:0 Smoker:0 Personal history MN/TIA/CVA: Yes, when she was 50 or 60 years old Fam Hx MN in first degree relative <65yo: No Related Data Home Medications ?Medication ?Instructions ?Recorded ?Confirmed ?Last Taken ?Type ipratropium bromide 21 mcg (0.03 2 spray intranasal BID 04/19/24 05/26/24 Unknown History %) nasal spray memantine 10 mg tablet 10 mg PO DAILY 04/19/24 05/26/24 Unknown History montelukast 10 mg tablet 10 mg PO QHS 04/19/24 05/26/24 Unknown History omeprazole 20 mg capsule,delayed 20 mg PO DAILY 04/19/24 05/26/24 Unknown History release trazodone 50 mg tablet 50 mg PO QHS 04/19/24 05/26/24 Unknown History azelastine 137 mcg (0.1 %) nasal 2 spray intranasal DAILY 04/20/24 05/26/24 Unknown History spray loratadine 10 mg tablet 10 mg PO DAILY 04/20/24 05/26/24 Unknown History Allergies Allergy/AdvReac Type Severity Reaction Status Date / Time codeine Allergy Severe CHEST Verified 03/18/25 07:33 PAIN;DIFFICULTY BREATHING morphine Allergy Severe CHEST Verified 03/18/25 07:33 PAIN;DIFFICULTY BREATHING PMFSH Past Medical History Medical History History of pneumonia, recurrent Fracture of humeral head, right, closed Chronic from a fall in 2020 Myocardial infarction (~1979) Without intervention GERD (gastroesophageal reflux disease) Insomnia Osteoporosis Allergic rhinitis Left leg cellulitis March 2024; s/p antibiotic treatment History of frequent headaches Alzheimer dementia Surgical History Surgical History Status post cataract extraction of both eyes with insertion of intraocular lens Status post open reduction with internal fixation of fracture Right hip fracture History of appendectomy History of carpal tunnel release History of total abdominal hysterectomy and bilateral salpingo-oophorectomy Hx of cholecystectomy (~1964) History of gastric bypass History of Bella fundoplication Family History Family History Father Acute myocardial infarction COPD (chronic obstructive pulmonary disease) Mother Heart disease Diabetes mellitus Breast cancer Social History Social History Social History: The patient lives at home with her . They had a daughter and a son. 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 She used to smoke. She thinks that she smoked for maybe 15 years but she is unsure. She reports that she never really drink much alcohol. She denies history of illicit substance use. Code status: Full code Surrogate decision maker: Smoking status: Former smoker Tobacco type: cigarettes Alcohol intake: never Substance use: never Substance use type: does not use Do You Feel Safe in your Home?: No Lack of Transportation: No Lack of Food: Never True Current Housing: I Have Housing Concerned About Future Housing: No Difficulty Paying Gas/Electric Bills: No Difficulty Paying for Meds: No Currently Unemployed: No Education: High School Diploma/GED Difficulty w/ Childcare or Family Care: No Living arrangements: with family Additional living arrangements comments: Spiritual care concerns: No Exam Narrative: GENERAL: Well-appearing, well-nourished, and in no acute distress. HEAD: Normocephalic, atraumatic. EYES: Non injected, non icteric ENT: Nares clear, no rhinorrhea or epistaxis. Gross auditory acuity intact. NECK: Supple. No meningismus. CHEST: Speaking in full sentences. No respiratory distress. Coarse/rhonchi bilateral breath sounds. HEART: Regular rate and rhythm. . ABDOMEN: Soft, nondistended. EXTREMITIES: Normal range of motion. No lower extremity edema. SKIN: Warm, dry, no rash. In particular, right side chest including around breast tissue and right back is examined and without crepitus/erythema/vesicles/ecchymosis. NEURO: No focal deficits. Alert and oriented. Answering questions. Following commands. Normal speech without aphasia or dysarthria. PSYCH: Normal mood and affect. Course Vital Signs Vital signs: Vital Signs Temperature 98.1 F 03/18/25 07:28 Pulse Rate 70 03/18/25 07:28 Respiratory Rate 20 03/18/25 07:28 Blood Pressure 178/72 H 03/18/25 07:28 Pulse Oximetry 95 03/18/25 07:28 Oxygen Delivery Room Air 03/18/25 07:28 Temperature 98.1 F 03/18/25 07:28 Pulse Rate 82 03/18/25 12:32 Respiratory Rate 18 03/18/25 12:32 Blood Pressure 110/66 03/18/25 12:32 Pulse Oximetry 99 03/18/25 12:32 Oxygen Delivery Room Air 03/18/25 07:57 MDM - SOB/Dyspnea MDM Narrative Medical decision making narrative: Patient presents with congestion, shortness of breath and a cough as well as myalgias. History of recurrent pneumonia. In the emergency department she is afebrile with vital signs notable for hypertension. HEART SCORE History 2 highly suspicious 1 moderately suspicious 0 slightly suspicious History score [address] depression/elevation not due to LBBB, LVH, or digoxin [address] depression but LBBB, LVH, nonspecific repolarization changes 0 normal ECG score 0 Age 2 >/= 65 1 45-64 0 <45 Age score 2 Risk factors (HTN, hypercholesterolemia, DM, obesity with BMI >30, current smoker or cessation </=3mo), positive fam hx with parent or sibling with CVD before age 65, atherosclerotic disease (prior MN, PCI/CABG, CVA/TIA, or peripheral arterial disease) 2 >/= 3 risk factors or history of atherosclerotic dz 1 - 1-2 risk factors 0 no known risk factors Risk factor score 1 (previous MN) Initial Troponin 2 >3 times normal limit 1 1-3 times normal limit 0 less than or equal to normal limit Troponin score 0 Total HEART Score 3. Repeat troponin normal. Normocytic anemia. Stable from previous. No leukocytosis. Normal chemistry. Chest x-ray consistent with prior abnormalities as below. Dimer only mildly elevated but will proceed with CT PE imaging. Initial troponin normal. 3 hour troponin ordered. Viral swab negative. Patient complaining of significant right-sided chest pain. She lists allergy to narcotic medications and does not believe she has received any others successfully and would prefer to not be administered any. Acetaminophen, aspirin, and nitroglycerin are ordered. Nitro administerd when BP 160s and pain 8/10 per RN but pain worsens to 10/10 after and SBP in the 110s per RN. Will discontinue further efforts as her chest pain appears to be noncardiac in etiology. Right upper lobe PNA on CT (occult as not evident on CXR). Patient initially given a dose of ceftriaxone for potential drug resistant strep and azithromycin. CURB-65 score Confusion (No 0, Yes +1): 0 BUN >19mg/dl (No 0, Yes +1): No RR >/= 30 (No 0, Yes +1): No SBP <90mmHg or DBP </=60mmHg (No 0, Yes +1): 0 Age >/=65 (No 0, Yes +1): 1 Result = 1 points,Low risk group: 2.7% 30-day mortality. Consider outpatient treatment. Discussed the possibility of observation admission for patient however upon reassessment at 11:30 a.m. she is feeling okay and notes that she would prefer to go home and trial conservative p.o. antibiotic therapy. This is reasonable Given that she has been hemodynamically stable and without hypoxia or tachypnea. Patient also provided prescriptions for Tessalon perles and albuterol inhaler due to the coarse breath sounds. We discussed strict emergency department return precautions and she verifies understanding and is in agreement. Although her chest pain was not felt to be cardiac in nature and likely secondary to the the given her low but otherwise negligible risk given her heart score, it is recommended that she follow up outpatient with Cardiology for a workup. Referral contact information provided. Differential Diagnosis Differential diagnosis: Likely congestive heart failure, community acquired pneumonia, pulmonary embolism and other (Shingles; acute viral syndrome, ACS; pneumothorax; ) Lab Data Attestation: I reviewed the patient's lab results. 03/18/25 07:53 03/18/25 07:53 Labs: Lab Results 03/18/25 03/18/25 03/18/25 Range/Units 07:53 08:56 10:58 WBC 8.7 (4.5-10.0) K/mm3 RBC 4.42 (4.2-5.4) M/mm3 Hgb 11.3 L (12.0-15.0) g/dL Hct 36.7 L (37.0-47.0) % MCV 83.0 (80-100) fl MCH 25.6 L (26-34) pg MCHC 30.8 L (32-36) g/dl RDW 16.1 H (11.5-14.5) % Plt Count 241 (150-375) k/mm3 MPV 8.3 (7.4-10.4) fl Immature Gran % (Auto) 0.6 H (0-0.5) % Neut % (Auto) 79.8 H (45.5-73.1) % Lymph % (Auto) 12.9 L (18.3-44.2) % [place] % (Auto) 5.9 (2.6-8.5) % Eos % (Auto) 0.5 (0-4.4) % Baso % (Auto) 0.3 (0.2-1.2) % Lymph # (Auto) 1.12 (0.9-3.2) K/mm3 [place] # (Auto) 0.5 (0.1-0.6) K/mm3 Eos # (Auto) 0.0 (0-0.3) K/mm3 Baso # (Auto) 0.0 (0.0-0.1) K/mm3 Abs Immat Gran (auto) 0.05 H (0.00-0.031) K/mm3 Absolute Neuts (auto) 6.9 H (1.3-6.7) K/mm3 Absolute Nucleated RBC 0.000 (0.0-0.012) K/mm3 Nucleated RBC % 0.0 (0.0-0.2) % D-Dimer 0.66 H (<0.48) ug/mL Sodium 139 (137-145) mmol/L Potassium 3.6 (3.4-5.0) mmol/L Chloride 105 (98-107) mmol/L Carbon Dioxide 24 (22-30) mmol/L Anion Gap 10 (4-12) mmol/L BUN 16 (7-17) mg/dL Creatinine 0.89 (0.7-1.0) mg/dL Estim Creat Clear Calc 34 ml/min Estimated GFR 60 (59 - ) Glucose 96 (65-110) mg/dL Calcium 9.2 (8.4-10.2) mg/dL Total Bilirubin 0.6 (0.2-1.3) mg/dL AST 22 (14-36) U/L ALT 13 (6-35) U/L Alkaline Phosphatase 84 (38-126) U/L Troponin I < 0.012 < 0.012 (0.000-0.034) ng/mL Total Protein 6.8 (6.3-8.2) g/dL Albumin 4.1 (3.5-5.1) g/dL Influenza A (RT-PCR) Negative (Negative) Influenza B (RT-PCR) Negative (Negative) RSV (RT-PCR) Negative (Negative) SARS-CoV-2 RNA (RT-PCR) Negative (Negative) Imaging Data Radiologist's impression: Impressions Chest X-Ray 03/18/25 08:51 IMPRESSION: 1. Unchanged opacity in the right midlung zone corresponding to chronic discoid atelectasis/scarring on CT. No other acute cardiopulmonary disease. 2. Small hiatal hernia. Chest CTA 03/18/25 09:43 IMPRESSION: 1. No pulmonary embolism. 2. Tiny right pleural effusion and new patchy groundglass opacities in the right upper lobe consistent with pneumonia. 3. Chronic right upper lobe discoid atelectasis/scarring in the minor fissure with unchanged elevation right hemidiaphragm. 4. Enlargement of the central pulmonary arteries consistent with pulmonary arterial hypertension. 4. Small sliding-type hiatal hernia with change of prior gastric bypass procedure. ECG Data EKG #1: Attestation: I personally reviewed and interpreted this ECG as follows: ECG completion date: 03/18/25 ECG completion time: 07:36 Prior ECG tracings: available for review (Incomplete right bundle-branch block and left anterior fascicular block on previous) Interpretation: Normal sinus rhythm at a rate of 70 beats per minute. MI interval 169. QRS 124. QT/QTC 386/407. Poor R-wave progression across the precordial leads. T-wave inversion in 3 but upright in normal in contiguous inferior leads 2 and AVF. No other T-wave inversions. RSR in V1 and V2. Left anterior fascicular block with rS complexes in leads II, III, aVF (small R waves, deep S waves), qR complexes in lead I , avL (small Q waves and tall R waves) and left axis deviation with Leads II, III and aVF negative and leads I and aVL positive. EKG #2: Attestation: I personally reviewed and interpreted this ECG as follows: ECG completion date: 03/18/25 ECG completion time: 08:51 Interpretation: Normal sinus rhythm at a rate of 68 beats per minute. MI interval 174. QRS 128. QT/QTC 384/401. Poor R-wave progression across the precordial leads. Left axis. Discharge Plan Discharge Clinical Impression: Right-sided chest pain, Abnormal chest x-ray, Hiatal hernia, Normocytic anemia, Right upper lobe pneumonia, Pulmonary arterial hypertension Patient Disposition: Home Condition: Stable Instructions: Antibiotic Form, Chest Pain (DC), Hiatal Hernia (DC), Pulmonary Arterial Hypertension (ED), Anemia (ED), Pneumonia (ED) Additional Instructions: You received the 1st dose of both an IV as well as oral dose of antibiotic for the pneumonia seen on your CT scan. It is reasonable to trial oral antibiotics for the rest of the course and these have been prescribed. Do not hesitate to return to the emergency department any new, worsening, or unmanaged symptoms however. As we discussed, although your chest pain is likely related to your respiratory issues and the rest of your heart workup was reassuring, given your age/risk factors, would recommend seeing a refrigeration operator. One has been listed below as a referral or you can work with your pcp. Patient Language: Citizen Of [place] Prescriptions: New benzonatate 100 mg capsule 100 mg PO BID PRN (Reason: cough) Qty: 20 0RF albuterol sulfate 90 mcg/actuation HFA aerosol inhaler 1 inh inhalation QID PRN (Reason: shortness of breath or wheezing) Qty: 6.7 0RF azithromycin 500 mg tablet 500 mg PO DAILY 4 Days Qty: 4 0RF Rx Instructions: start 03/19 (received 1st dose in the emergency department 03/18/2025) No Action trazodone 50 mg tablet 50 mg PO QHS omeprazole 20 mg capsule,delayed release(DR/EC) 20 mg PO DAILY montelukast 10 mg tablet 10 mg PO QHS ipratropium bromide 21 mcg (0.03 %) spray,non-aerosol 2 spray INTRANASAL BID memantine 10 mg tablet 10 mg PO DAILY loratadine 10 mg tablet 10 mg PO DAILY azelastine 137 mcg (0.1 %) spray,non-aerosol 2 spray INTRANASAL DAILY cephalexin 500 mg capsule 500 mg PO Q12H 7 Days Qty: 14 0RF cefdinir 300 mg capsule 300 mg PO Q12H Qty: 14 0RF azithromycin 250 mg tablet See Rx Instructions .ROUTE .COMPLEX Qty: 6 0RF Rx Instructions: For 250 mg dose pack: take 500 mg today (day 1), then 250 mg for 4 days (days 2-5) doxycycline hyclate 100 mg tablet 100 mg PO Q12H Qty: 9 0RF amoxicillin 875 mg tablet 875 mg PO Q12H Qty: 9 0RF Follow-up/Referrals: Hilda,Alyssa Gonsalez APRN [Primary Care Provider] - Colton Alcala DO [Physician] - (Cardiology) Time of Disposition: 11:42
--- NOTE | 2025-03-18 08:50 | PC.NURSE ---
Pt pushed call light and stated she is currently having chest pain, additional EKG obtained, EDP made aware, primary nurse made aware
[2025-03-18 09:14] LABS: D Dimer 0.66 ug/mL (<0.48)
[2025-03-18 09:16] LABS: Troponin I < 0.012 ng/mL (0.000-0.034)
[2025-03-18 09:38] LABS: Influenza A QL RT-PCR Negative (Negative); Influenza B QL RT-PCR Negative (Negative); RSV RNA, RT-PCR Negative (Negative); SARS-CoV-2 RNA PCR Negative (Negative)
[2025-03-18] MEDS: ACETAMINOPHEN 325 MG TABLET 650 MG PO (09:42)
[2025-03-18] MEDS: PANTOPRAZOLE 40 MG TABLET PO (09:44)
[2025-03-18] MEDS: ASPIRIN 81 MG CHEWABLE TABLET 324 MG PO (09:44)
[2025-03-18] MEDS: NITROGLYCERIN SL 0.4 MG TABLET SUBLINGUAL (09:45)
--- NOTE | 2025-03-18 09:46 | PC.NURSE ---
0945 - pt was given her first nitroglycerin pill, pt says her chest pain was 8/10 in her R chest HR: 74 O2: 97 RR: 22 BP: 161/69 0950 - pt says her chest pain got worse, 10/10 in her R chest HR: 96 O2: 97 RR: 21 BP: 112/71 this RN does not feel comfortable giving another dose due to pt BP dropping that much in a short amount of time. will make EDP aware
[2025-03-18] MEDS: AZITHROMYCIN 250 MG TABLET 500 MG PO (10:28)
--- NOTE | 2025-03-18 10:51 | ECG_ITS ---
Test Date: 2025-03-18 10:57:31 Measurements Intervals [place] Rate: 78 P: 16 TN: 169 QRS: -64 QRSD: 121 T: 17 QT: 384 QTc: 440 Interpretive Statements SINUS RHYTHM INCOMPLETE RIGHT BUNDLE BRANCH BLOCK LEFT ANTERIOR FASCICULAR BLOCK CANNOT R/O SEPTAL INFARCT, AGE INDETERMINATE ABNORMAL ECG Compared to ECG 03/18/2025 08:51:18 NO SIGNIFICANT CHANGE Electronically Signed On 03-18-2025 13:41:46 CDT by Colton Alcala D.O.
[2025-03-18 11:25] LABS: Troponin I < 0.012 ng/mL (0.000-0.034)
== END 2025-03-18 12:34 | disposition home or self-care (01) ==
PROVIDERS: Emergency Provider Student in an Organized Health Care Education/Training Program; PCP Nurse Practitioner Family
DX: J18.9 Pneumonia, unspecified organism (principal); I27.21 Secondary pulmonary arterial hypertension; K44.9 Diaphragmatic hernia without obstruction or gangrene; D64.9 Anemia, unspecified; R91.8 Other nonspecific abnormal finding of lung field; G30.9 Alzheimer's disease, unspecified; F02.80 Dementia in other diseases classified elsewhere, unspecified severity, without behavioral disturbance, psychotic disturbance, mood disturbance, and anxiety; I25.2 Old myocardial infarction; K21.9 Gastro-esophageal reflux disease without esophagitis; M81.0 Age-related osteoporosis without current pathological fracture; Z98.84 Bariatric surgery status; Z86.73 Personal history of transient ischemic attack (TIA), and cerebral infarction without residual deficits; Z87.891 Personal history of nicotine dependence; Z96.1 Presence of intraocular lens; Z98.42 Cataract extraction status, left eye; Z98.41 Cataract extraction status, right eye; Z90.710 Acquired absence of both cervix and uterus; Z90.79 Acquired absence of other genital organ(s); Z90.722 Acquired absence of ovaries, bilateral; Z90.49 Acquired absence of other specified parts of digestive tract; Z79.899 Other long term (current) drug therapy; I45.2 Bifascicular block
CPT/HCPCS: 36415; 71046; 71275; 80053; 84484; 85025; 85380; 87040; 87637; 93005; 99284; A9270; J0696; Q9967

== ENCOUNTER 2025-06-14 08:53 | Emergency (ER) | payer OTHER, SELFPAY ==
--- OUTSIDE RECORDS SUMMARY | 2010-05-20 08:15 | XMS_ITS | Continuity of Care Document ---
Author Organization [facility] Address [address] [place] [address] Phone Care Team Providers Care Table Saw Operator Name Role Phone Michelle Finnegan Unavailable Unavailable Procedures Procedure Date Visual Field Examination(s) Office/outpatient Visit, Est Office/outpatient Visit, Est Fundus Photography W/ Report Visual Field Examination(s) Office/outpatient Visit, Est Office/outpatient Visit, Est Fundus Photography W/ Report Office/outpatient Visit, Est Optic Nerve Topography Optic Nerve Topography Visual Field Examination(s) Eye Exam Established Pt Corneal Pachymetry Advance Directives Directive Yes / No Effective Date File Name No Information Encounters Encounter Description Practice Location Reason(s) For Visit Diagnoses Date Provider Providers Copied on Encounter [facility], [address], [place], [place], [address], [place] tel:[phone] [facility] No Information 0 Sivan Martinez. [address] , [address], [place], [address], [place]. tel:[phone] Referring Provider: [address], [place], [address]. tel:[phone] Office/outpat ient Visit, Est [facility], [address] [place] [address] [address], [place], [place], [address], tel:[phone] [facility] No Information 3-201 0 Sivan Dominguez [address] , [address], [place], [place], [facility], . tel:[phone] Office/outpat ient Visit, [facility], [address] [place] [address] [address], [place], [place], [address], [phone] [facility] No Information 5-200 9 Sivan Martinez. [address] [facility] [facility] , [address], [place], [place], [facility], . tel:[phone] Referring Provider: Michelle Aragon, [address], [place], [facility]. tel:[phone] [facility], [address] [place] [address] [address], [place], [place], [address], tel:[phone] [facility] No Information 1200 9 Sivan Martinez. [address] [facility] , [address], [place], [facility], . tel:[phone] Referring Provider: Michelle Aragon, [address], [place], [facility]. tel:[phone] Office/outpat ient Visit, [facility], [address] [place] [address] [address], [place], [place], [address], [place] tel:[phone] [facility] No Information 0 200 9 Sivan Martinez. [address] [facility] , [address], [place], [facility], . tel:[phone] Office/outpat ient Visit, [facility], [address] [place] [address] [address], [place], [place], [address], tel:[phone] [facility] No Information Dec-0 9-200 8 Sivan Martinez. [address] , [address], [place], [facility], [place]. tel:[phone] Referring Provider: Michelle Aragon, [address], [place], [facility]. tel:[phone] Office/outpat ient Visit, Est [facility], [address] [place] [address] [address], [place], [place], [address], [place] tel:[phone] [facility] No Information Mar-2 9-200 8 Sivan Martinez. [address] , [address], [place], [facility], [place]. tel:[phone] [facility], [address] [place] [address] [address], [place], [place], [address], [place] tel:[phone] [facility] No Information Mar-1 -200 8 Sivan Martinez. [address] , [address], [place], [facility], [place]. tel:[phone] Referring Provider: Michelle Aragon, [address], [place], [facility]. tel:[phone] [facility], [address] [place] [address] [address], [place], [place], [address], [place] tel:[phone] [facility] No Information Mar-0 1-200 8 Sivan Dominguez [address] , [address], [place], [facility], [place]. tel:[phone] Referring Provider: Michelle Aragon, [address], [place], [facility]. tel:[phone] [facility], [address], [place], [place], [address], [place] tel:[phone] [facility] No Information Apr-0 8-200 8 Sivan Martinez. [address] , [address], [place], [address], [place]. tel:[phone] Referring Provider: Michelle Aragon, [address] [facility] [address], [place], [address]. tel:[phone] Family History Family Member Type Diagnosis Age At Onset No Information Payers Payer name Insurance type Covered democrat ID Authorannie leonard(s) [facility] Commercial CI [id number] Social History Type Description Quantity Date Captured Comments Sex Female Smoking Status No Information Chief Complaint And Reason For Visit No Information Reason For Referral Reason For Referral No Information History Of Present Illness Encounter Date Complaint History Of Prese nt Illness No Information Functional Status Date Functional Assessmen t No Information Instructions Date Instruction Additional Infor mation No Information Assessments Type Assessment Date No Information Patient Care Teams Name Effective Dates (start - stop) Status Members No Information
--- OUTSIDE RECORDS SUMMARY | 2010-05-20 08:15 | XMS_ITS | Continuity of Care Document ---
Author Organization [facility] Address [address] [place] [address] Phone Care Team Providers Care Hull Builder Name Role Phone Michelle Finnegan Unavailable Unavailable [...] Diagnoses Date Provider Providers Copied on Encounter [facility], [address], [place], [place], [address], [place] tel:[phone] [facility] No Information 0 Sivan Martinez. [address] , [address], [place], [address], [place]. tel:[phone] Referring Provider: [address], [place], [address]. tel:[phone] Office/outpat ient Visit, Est [facility], [address] [place] [address] [address], [place], [place], [address], tel:[phone] [facility] No Information 3-201 0 Sivan Dominguez [address] , [address], [place], [facility], . tel:[phone] Office/outpat ient Visit, [facility], [address] [place] [address] [address], [place], [place], [address], [phone] [facility] No Information 5-200 9 Sivan Martinez. [address] [facility] , [address], [place], [facility], . tel:[phone] Referring Provider: Michelle Aragon, [address], [place], [facility]. tel:[phone] [facility], [address] [place] [address] [address], [place], [place], [address], tel:[phone] [facility] No Information 1200 9 Sivan Martinez. [address] [facility] [address] , [address], [place], [facility], . tel:[phone] Referring Provider: Michelle Aragon, [address], [place], [facility]. tel:[phone] Office/outpat ient Visit, [facility], [address] [place] [address] [address], [place], [place], [address], [place] tel:[phone] [facility] No Information 0 200 9 Sivan Martinez. [address] [facility] [address] , [address], [place], [facility], . tel:[phone] Office/outpat ient Visit, [facility], [address] [place] [address] [address], [place], [place], [address], tel:[phone] [facility] No Information Dec-0 9-200 8 Sivan Martinez. [address] , [address], [place], [facility], [place]. tel:[phone] Referring Provider: Michelle Aragon, [address], [place], [facility]. tel:[phone] Office/outpat ient Visit, Est [facility], [address] [place] [address] [address], [place], [place], [address], [place] tel:[phone] [facility] No Information Mar-2 9-200 8 Sivan Martinez. [address] , [address], [place], [facility], [place]. tel:[phone] [facility], [address] [place] [address] [address], [place], [place], [address], [place] tel:[phone] [facility] No Information Mar-1 -200 8 Sivan Martinez. [address] , [address], [place], [facility], [place]. tel:[phone] Referring Provider: Michelle Aragon, [address], [place], [facility]. tel:[phone] [facility], [address] [place] [address] [address], [place], [place], [address], [place] tel:[phone] [facility] No Information Mar-0 1-200 8 Sivan Dominguez [address] , [address], [place], [facility], [place]. tel:[phone] Referring Provider: Michelle Aragon, [address], [place], [facility]. tel:[phone] [facility], [address], [place], [place], [address], [place] tel:[phone] [facility] No Information Apr-0 8-200 8 Sivan Martinez. [address] , [address], [place], [address], [place]. tel:[phone] Referring Provider: Michelle Aragon, [address] [facility] [address], [place], [address]. tel:[phone] Family History Family Member Type Diagnosis Age At Onset No Information Payers Payer name Insurance type Covered constitution party ID Authorannie leonard(s) [facility] Commercial CI [id number] Social History Type Description Quantity Date Captured [...]
--- OUTSIDE RECORDS SUMMARY | 2014-01-02 04:26 | XMS_ITS | Continuity of Care Document ---
Author Organization [facility] Address [address] [place] [address] Phone Care Team Providers Care Funeral Driver Name Role Phone Mayra Daniel MD Unavailable Unavailable Allergies, Adverse Reactions, Alerts Substance Reaction Status Criticality AMOXICILLIN TRIHYDRATE Anaphylaxis Active No In formation POTASSIUM CLAVULANATE Anaphylaxis Active No Inf ormation PHENYLEPHRINE HCL Anaphylaxis Active No Informa tion PHENYLPROPANOLAMINE HCL Anaphylaxis Active No I nformation guaifenesin Anaphylaxis Active No Information morphine Anaphylaxis Active No Information codeine Anaphylaxis Active No Information Medications Medication Instructions Dosage Effective Dates (start - stop) Status Comments TRAZODONE 50 MG TABLET 4 QHS - Active TRIAMTERENE-HCTZ 37.5-25 MG TB 1 DAILY - Active FIORINAL 50-325-40 MG CAPSULE 1 Q 4-6HR - Active ASTEPRO 0.15% NASAL SPRAY 1 BID - Active ALVESCO 80 MCG INHALER 1 QD-daily - Active NEXIUM 40 MG CAPSULE 1 QD-daily - Acti ve TRAVATAN Z 0.004% EYE DROP 1 AT BEDTIME - Active 1 drop each ey e NASONEX 50MCG APPLICS 2 QD-daily - Active ZYRTEC 10MG TABS 1 QD - Active One Daily Multivitamin Tab take 1 tablet by oral route every day with food - Active Advance Directives Directive Yes / No Effective Date File Name No Information Encounters Encounter Description Practice Location Reason(s) For Visit Diagnoses Date Provider Providers Copied on Encounter [facility], [address], [place], [place], [address] , [place] tel: [phone] [facility] No Information 4 María Mayra. [facility] [address], [place], [place], [address], [place]. tel: [phone] [facility], [address], [place], [place], [address] , [place] tel:[phone] [facility] No Information 3 Maríazoe Nunez. [facility], [address], [place], [place], [address], [place]. tel:[phone] [facility], [address], [place], [place], [address] , [place] tel: [phone] [facility] No Information 2 Maríazoe Nunez. [address] [place] [address], [place] [address], [place], [place], [address], [place]. tel:[phone] [facility], [address], [place], [place], [address] , [place] tel: [phone] [facility] No Information 1 Maríazoe Nunez. [address] [place] [address], [place] [address], [place], [place], [address], [place]. tel:[phone] [facility], [address], [place], [place], [address] , [place] tel: [phone] [facility] No Information 1 María Mayra. [address] [place] [address], [address], [place], [place], [address], [place]. tel:[phone] [facility], [address], [place], [place], [address] , [place] tel: [phone] [facility] Unspecified chronic bronchitisMigrain e, unspecified without mention of intractable migraineEdemaDiso rder of bone and cartilage, unspecifiedAllerg ic rhinitis, cause unspecifiedRoutin e general medical examination at a health care facilityRoutine general medical examination at a health care facility 1 María Nunez. [address] [place] [address], [address], [place], [place], [address], [place]. [phone] Referring Provider: Mayra Gonzalez, [address] [place] [address] [address], [place], [address] . tel:[phone] [facility], [address], [place], [place], [address] , [place] tel: [phone] [facility] EdemaDisorder of bone and cartilage, unspecifiedAllerg ic rhinitis, cause unspecifiedPerson al history of colonic polypsObstructive sleep apnea (adult)(pediatric )Unspecified vitamin d deficiencyDyskine divya of esophagus 1 María Nunez. [address] [place] [address], [place] [address], [place], [place], [address], [place]. tel:[phone] [facility], [address], [place], [place], [address] , [place] tel: [phone] [facility] No Information 1 [facility]. [address] [place] [address], [place], [address], [place]. [facility], [address], [place], [place], [address] , [place] tel: [phone] [facility] ESOPHAGEAL REFLUXBONE & CARTILAGE DIS NOS 0 María Nunez. [address] [place] [address], [place] [address], [place], [place], [address], [place]. tel:[phone] [facility], [address], [place], [place], [address] , [place] tel: [phone] [facility] MIGRNE UNSP WO NTRC MGRN 0 Conversion Doctor. [address] [place] [address], [address], [place]. [facility], [address], [place], [place], [address] , [place] tel: [phone] [facility] LONG-TERM USE MEDS NECGLAUCOMA NOSALLERGIC RHINITIS NOS 0 Conversion Doctor. [facility] [place], [address], [place]. [facility], [address], [place], [place], [address] , [place] tel: [phone] [facility] ROUTINE MEDICAL EXAMPRSNL HST COLONIC POLYPSSCREEN LIPOID DISORDERSASTHMA NOS 3-201 0 María Nunez. [address] [place] [address], [place] [address], [place], [place], [address], [place]. tel:[phone] [facility], [address], [place], [place], [address] , [place] tel: [phone] [facility] ND VAC STRPTCS PNEUMNI BVACCN/INOC VIRAL DIS NECCHRONIC BRONCHITIS NOSLUMBAGO Nov-0 5-200 9 Maríazoe Nunez. [address] [place] [address], [place] [address], [place], [place], [address], [place]. tel:[phone] [facility], [address], [place], [place], [address] , [place] tel: [phone] [facility] VACCIN FOR INFLUENZAOBSTRUCT HARJINDER SLEEP APNEA 8-200 8 María Mayra. [address] [place] [address], [place] [address], [place], [place], [address], [place]. tel:[phone] [facility], [address], [place], [place], [address] , [place] tel: [phone] [facility] PNEUMONIA, ORGANISM NOS 0 7-200 8 Maríazoe Nunez. [address] [place] [address], [place] [address], [place], [place], [address], [place]. tel:[phone] [facility], [address], [place], [place], [address] , [place] tel: [phone] [facility] VACCINATION FOR TD-DT 8-200 7 Maríazoe Nunez. [address] [place] [address], [place] [address], [place], [place], [address], [place]. tel:[phone] [facility], [address], [place], [place], [address] , [place] tel: [phone] [facility] No Information 8-200 4 María Nunez. [facility], [address], [place], [place], [address], [place]. tel:[phone] [employer], [address], [place], [place], [address] , tel: [phone] [facility] GYNECOLOGIC EXAMINATION 6200 4 María Nunez. [address] [place] [address], [address], [place], [place], [address], [place]. tel:[phone] [employer], [address], [place], [place], [address] , tel: [phone] [facility] HORMONE REPLACE POSTMENO 5200 0 María Nunez. [address] [place] [address], [address], [place], [place], [address], [place]. tel:[phone] Family History Family Member Type Diagnosis Age At Onset Mother Problem (finding) alzheimer's disease Mother Problem (finding) hypertension Brother Problem (finding) Cancer, brain (Cause Of ) Mother Problem (finding) coronary arterioscleros is Mother Problem (finding) malignant neop lasm of breast in first degree relative 76 Brother Problem (finding) Father Problem (finding) Hearing impairment Immunizations Vaccine Date Status Comments 32415 - Pneumococcal_PPV23 administered S ource: Source Unspecified 19127 - Zoster_Shingles administered Sour ce: Source Unspecified 88127 - Influenza administered Source: So urce Unspecified 21147 - TD administered Source: Source Unspecified 22580 - Influenza administered Source: [place] ur[place] Unspecified 39801 - Influenza administered Source: So urce Unspecified 19693 - Pneumococcal_PPV23 administered S ource: Source Unspecified Payers Payer name Insurance type Covered libertarian ID Authoriza tion(s) No Information Social History Type Description Quantity Date Captured [...]
--- OUTSIDE RECORDS SUMMARY | 2014-01-02 04:26 | XMS_ITS | Continuity of Care Document ---
Author Organization [facility] [employer] Address [address] [place] [address] Phone Care Team Providers Care Bench Worker Name Role Phone Mayra Daniel MD Unavailable [...] Copied on Encounter [facility], [address], [place], [place], [address] , [place] tel: [phone] [facility] No Information 4 María Mayra. [facility], [facility] [address], [place], [place], [address], [place]. tel: [phone] [facility], [address], [place], [place], [address] , [place] tel:[phone] [facility] No Information 3 Maríazoe Nunez. [facility], [facility] [address], [place], [place], [address], [place]. tel:[phone] [facility], [address], [place], [place], [address] , [place] tel: [phone] [facility] No Information 2 Maríazoe Nunez. [address] [place] [address], [place] [address], [place], [place], [address], [place]. tel:[phone] [facility], [address], [place], [place], [address] , [place] tel: [phone] [facility] No Information 1 Maríazoe Nunez. [address] [place] [address], [place] [address], [place], [place], [address], [place]. tel:[phone] [facility], [address], [place], [place], [address] , [place] tel: [phone] [facility] No Information 1 María Mayra. [address] [place] [address], [facility] [address], [place], [place], [address], [place]. tel:[phone] [facility], [address], [place], [place], [address] , [place] tel: [phone] [facility] Unspecified chronic bronchitisMigrain e, unspecified without mention of intractable migraineEdemaDiso rder of bone and cartilage, unspecifiedAllerg ic rhinitis, cause unspecifiedRoutin e general medical examination at a health care facilityRoutine general medical examination at a health care facility 1 María Nunez. [address] [place] [address], [address], [place], [place], [address], [place]. [phone] Referring Provider: Mayra Gonzalez, [address] [place] [address] [address], [place], [address] . tel:[phone] [facility], [address], [place], [place], [address] , [place] tel: [phone] [facility] EdemaDisorder of bone and cartilage, unspecifiedAllerg ic rhinitis, cause unspecifiedPerson al history of colonic polypsObstructive sleep apnea (adult)(pediatric )Unspecified vitamin d deficiencyDyskine divya of esophagus 1 María Nunez. [address] [place] [address], [place] [address], [place], [place], [address], [place]. tel:[phone] [facility], [address], [place], [place], [address] , [place] tel: [phone] [facility] No Information 1 Con[facility] Doctor. [address] [place] [address], [place], [address], [place]. [facility], [address], [place], [place], [address] , [place] tel: [phone] [facility] ESOPHAGEAL REFLUXBONE & CARTILAGE DIS NOS 0 María Nunez. [address] [place] [address], [place] [address], [place], [place], [address], [place]. tel:[phone] [facility], [address], [place], [place], [address] , [place] tel: [phone] [facility] MIGRNE UNSP WO NTRC MGRN 0 Con[facility]. [address] [place] [address], [address], [place]. [facility], [address], [place], [place], [address] , [place] tel: [phone] [facility] LONG-TERM USE MEDS NECGLAUCOMA NOSALLERGIC RHINITIS NOS 0 [facility] Doctor. [facility] [place], [address], [place]. [facility], [address], [place], [place], [address] , [place] tel: [phone] [facility] ROUTINE MEDICAL EXAMPRSNL HST COLONIC POLYPSSCREEN LIPOID DISORDERSASTHMA NOS 3-201 0 María Nunez. [address] [place] [address], [place] [address], [place], [place], [address], [place]. tel:[phone] [facility], [address], [place], [place], [address] , [place] tel: [phone] [facility] ND VAC STRPTCS PNEUMNI BVACCN/INOC VIRAL DIS NECCHRONIC BRONCHITIS NOSLUMBAGO Nov-0 5-200 9 Maríazoe Nunez. [address] [place] [address], [place] [address], [place], [place], [address], [place]. tel:[phone] [facility], [address], [place], [place], [address] , [place] tel: [phone] [facility] VACCIN FOR INFLUENZAOBSTRUCT HARJINDER SLEEP APNEA 8-200 8 María Mayra. [address] [place] [address], [place] [address], [place], [place], [address], [place]. tel:[phone] [facility], [address], [place], [place], [address] , [place] tel: [phone] [facility] PNEUMONIA, ORGANISM NOS 0 7-200 8 Maríazoe Nunez. [address] [place] [address], [place] [address], [place], [place], [address], [place]. tel:[phone] [facility], [address], [place], [place], [address] , [place] tel: [phone] [facility] VACCINATION FOR TD-DT 8-200 7 Maríazoe Nunez. [address] [place] [address], [place] [address], [place], [place], [address], [place]. tel:[phone] [facility], [address], [place], [place], [address] , [place] tel: [phone] [facility] No Information 8-200 4 María Nunez. [facility] [place], [address], [place], [place], [address], [place]. tel:[phone] [employer], [address], [place], [place], [address] , tel: [phone] [facility] GYNECOLOGIC EXAMINATION 6200 4 María Nunez. [address] [place] [address], [facility] [address], [place], [place], [address], [place]. tel:[phone] [employer], [address], [place], [place], [address] , tel: [phone] [facility] HORMONE REPLACE POSTMENO 5200 0 María Nunez. [address] [place] [address], [address], [place], [place], [address], [place]. tel:[phone] Family History Family Member Type Diagnosis Age At Onset Mother Problem (finding) alzheimer's disease Mother Problem (finding) hypertension Brother Problem (finding) Cancer, brain (Cause Of ) Mother Problem (finding) coronary arterioscleros is Mother Problem (finding) malignant neop lasm of breast in first degree relative 76 Brother Problem (finding) Father Problem (finding) Hearing impairment Immunizations Vaccine Date Status Comments 23275 - Pneumococcal_PPV23 administered S ource: Source Unspecified 51960 - Zoster_Shingles administered Sour ce: Source Unspecified 41841 - Influenza administered Source: So urce Unspecified 14374 - TD administered Source: Source Unspecified 62030 - Influenza administered Source: So urce Unspecified 87363 - Influenza administered Source: So urce Unspecified 11768 - Pneumococcal_PPV23 administered S ource: Source Unspecified Payers Payer name Insurance type Covered alliance party ID Authoriza tion(s) No Information Social History [...]
--- NOTE | ~2025-06-14 | XR_ITS ---
Examination: XR chest 2V Clinical History: chest pain Comparison: X-ray chest 03/18/2025 Technique: PA and Lateral Findings: Cardiomediastinal silhouette normal size and configuration. Chronic linear opacity right upper lobe, but mild patchy airspace disease peripheral to this. Chronic elevation right hemidiaphragm. Hiatal hernia. No acute bony abnormality. Osteopenia, with exaggerated thoracic kyphosis. IMPRESSION: 1. Probably airspace disease peripheral to chronic discoid atelectasis right upper lobe. Reviewed, dictated and finalized at location R. IMPRESSION: 1. Probably airspace disease peripheral to chronic discoid atelectasis right u pper lobe.
--- NOTE | 2025-06-14 09:09 | ECG_ITS ---
Test Date: 2025-06-14 09:05:47 Measurements Intervals [place] Rate: 71 P: 17 NV: 168 QRS: -51 QRSD: 121 T: 15 QT: 414 QTc: 450 Interpretive Statements SINUS RHYTHM LEFT ANTERIOR FASCICULAR BLOCK [QRS AXIS <= -45, QR IN I, RS IN II] ABNORMAL ECG Compared to ECG 03/18/2025 10:57:31 Incomplete right bundle-branch block no longer present Myocardial infarct finding no longer present Electronically Signed On 06-14-2025 13:04:50 CDT by Chilo Bates M.D.
[2025-06-14 09:10] VITALS: BP 142/70; PULSE 73; RESP 19; TEMP 36.9; O2SAT 98
[2025-06-14 09:12] VITALS: PULSE 77
--- NOTE | 2025-06-14 09:18 | ED_ITS ---
HPI - General Adult General Chief complaint: Chest Pain Stated complaint: chest pain Time Seen by Provider: 06/14/25 09:02 History of Present Illness HPI narrative: Patient is an 85-year-old female who presents ER with chest pain. She has dementia and her provides history. Had chest pain all yesterday and also this morning. Associated with cough. Aching at times. No improvement with Tylenol. Had some mild dyspnea that occurred this morning. They called PCP and referred to the ER. No fevers or chills. No leg swelling. Related Data Home Medications ?Medication ?Instructions ?Recorded ?Confirmed ?Last Taken ?Type ipratropium bromide 21 mcg (0.03 2 spray intranasal BI D 04/19/24 05/26/24 Unknown History %) nasal spray memantine 10 mg tablet 10 mg PO DAILY 04/19/2404/29 Unknown History montelukast 10 mg tablet 10 mg PO QHS 04/19/24 Unknown History omeprazole 20 mg capsule,delayed 20 mg PO DAILY 05/26/24 Unknown History release trazodone 50 mg tablet 50 mg PO QHS 04/19/24 Unknown History azelastine 137 mcg (0.1 %) nasal 2 spray intranasal DA GERALDINE 04/20/24 05/26/24 Unknown History spray loratadine 10 mg tablet 10 mg PO DAILY 04/20/2404/29 Unknown History Allergies Allergy/AdvReac Type Severity Reaction Status Date / Time codeine Allergy Severe CHEST Verified 06/14/25 09:14 PAIN;DIFFICULTY BREATHING morphine Allergy Severe CHEST Verified 06/14/25 09:14 PAIN;DIFFICULTY BREATHING Review of Systems 2 Review of Systems: ROS unobtainable: Yes unobtainable due to mental status [facility] Past Medical History Medical History History of pneumonia, recurrent Fracture of humeral head, right, closed Chronic from a fall in 2020 Myocardial infarction (~1979) Without intervention GERD (gastroesophageal reflux disease) Insomnia Osteoporosis Allergic rhinitis Left leg cellulitis March 2024; s/p antibiotic treatment History of frequent headaches Alzheimer dementia Surgical History Surgical History Status post cataract extraction of both eyes with insertion of intraocular lens Status post open reduction with internal fixation of fracture Right hip fracture History of appendectomy History of carpal tunnel release History of total abdominal hysterectomy and bilateral salpingo-oophorectomy Hx of cholecystectomy (~1965) History of gastric bypass History of Bella fundoplication Family History Family History Father Acute myocardial infarction COPD (chronic obstructive pulmonary disease) Mother Heart disease Diabetes mellitus Breast cancer Social History Social History Social History: The patient lives at home with her . They had a daughter and a son. 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 She used to smoke. She thinks that she smoked for maybe 15 years but she is unsure. She reports that she never really drink much alcohol. She denies history of illicit substance use. Code status: Full code Surrogate decision maker: Smoking status: Former smoker Tobacco type: cigarettes Alcohol intake: never Substance use: never Substance use type: does not use Do You Feel Safe in your Home?: No Lack of Transportation: No Lack of Food: Never True Current Housing: I Have Housing Concerned About Future Housing: No Difficulty Paying Gas/Electric Bills: No Difficulty Paying for Meds: No Currently Unemployed: No Education: High School Diploma/GED Difficulty w/ Childcare or Family Care: No Living arrangements: with family Additional living arrangements comments: Spiritual care concerns: No Exam 2 Narrative: GENERAL: Well-appearing, well-nourished, and in no acute distress. HEAD: Normocephalic, atraumatic ENT: Mucous membranes moist. CHEST: Clear to auscultation. No respiratory distress. HEART: Regular rate and rhythm. Normal peripheral pulses. ABDOMEN: Soft, nontender, nondistended. EXTREMITIES: Normal range of motion. No edema. SKIN: Warm, dry, no rash. NEURO: Alert and oriented x3. PSYCH: Normal mood and affect. Course Course Emergency Course: Patient resting comfortably and in positive spirits. Discussed imaging and lab results. Appropriate for discharge home. Will place on oral antibiotic for pneumonia. Vital Signs Vital signs: Vital Signs Temperature 98.4 F 06/14/25 09:10 Pulse Rate 73 06/14/25 09:10 Respiratory Rate 19 09/17/25 09:10 Blood Pressure 142/70 H 06/14/25 09:10 Pulse Oximetry 98 06/14/25 09:10 Oxygen Delivery Room Air 06/14/25 09:10 Temperature 98.4 F 06/14/25 09:10 Pulse Rate 68 06/14/25 10:33 Respiratory Rate 17 06/14/25 10:33 Blood Pressure 148/70 H 06/14/25 10:33 Pulse Oximetry 97 06/14/25 10:33 Oxygen Delivery Room Air 06/14/25 09:25 Medical Decision Making Vital Signs Vital Signs: Vital Signs Temperature 98.4 F 06/14/25 09:10 Pulse Rate 73 06/14/25 09:10 Respiratory Rate 06/14/25 09:10 Blood Pressure 142/70 H 06/14/25 09:10 Pulse Oximetry 98 06/14/25 09:10 Oxygen Delivery Room Air 06/14/25 09:10 Temperature 98.4 F 06/14/25 09:10 Pulse Rate 68 06/14/25 10:33 Respiratory Rate 06/14/25 10:33 Blood Pressure 148/70 H 06/14/25 10:33 Pulse Oximetry 97 06/14/25 10:33 Oxygen Delivery Room Air 06/14/25 09:25 Lab Data 06/14/25 09:12 06/14/25 09:12 Labs: Lab Results 06/14/25 Range/Units 09:12 WBC 10.5 H (4.5-10.0) K/mm3 RBC 4.28 (4.2-5.4) M/mm3 Hgb 11.2 L (12.0-15.0) g/dL Hct 36.4 L (37.0-47.0) % MCV 85.0 (80-100) fl MCH 26.2 (26-34) pg MCHC 30.8 L (32-36) g/dl RDW 16.2 H (11.5-14.5) % Plt Count 260 (150-375) k/mm3 MPV 8.1 (7.4-10.4) fl Immature Gran % (Auto) 0.5 (0-0.5) % Neut % (Auto) 81.8 H (45.5-73.1) % Lymph % (Auto) 11.6 L (18.3-44.2) % [place] % (Auto) 5.5 (2.6-8.5) % Eos % (Auto) 0.2 (0-4.4) % Baso % (Auto) 0.4 (0.2-1.2) % Lymph # (Auto) 1.22 (0.9-3.2) K/mm3 [place] # (Auto) 0.6 (0.1-0.6) K/mm3 Eos # (Auto) 0.0 (0-0.3) K/mm3 Baso # (Auto) 0.0 (0.0-0.1) K/mm3 Abs Immat Gran (auto) 0.05 H (0.00-0.031) K/mm3 Absolute Neuts (auto) 8.6 H (1.3-6.7) K/mm3 Absolute Nucleated RBC 0.000 (0.0-0.012) K/mm3 Nucleated RBC % 0.0 (0.0-0.2) % PT 13.6 (11.1-14.7) Seconds INR 1.0 APTT 28.1 (22.3-36.8) Seconds Sodium 137 (137-145) mmol/L Potassium 3.8 (3.4-5.0) mmol/L Chloride 103 (98-107) mmol/L Carbon Dioxide 26 (22-30) mmol/L Anion Gap 8 (4-12) mmol/L BUN 21 H (7-17) mg/dL Creatinine 0.93 (0.7-1.0) mg/dL Estim Creat Clear Calc 32 ml/min Estimated GFR 57 L (59 - ) Glucose 126 H (65-110) mg/dL Calcium 9.0 (8.4-10.2) mg/dL Total Bilirubin 0.6 (0.2-1.3) mg/dL AST 23 (14-36) U/L ALT 11 (6-35) U/L Alkaline Phosphatase 69 (38-126) U/L Troponin I < 0.012 (0.000-0.034) ng/mL Total Protein 6.8 (6.3-8.2) g/dL Albumin 3.9 (3.5-5.1) g/dL Lipase 41 (23-300) U/L Imaging Data Radiologist's impression: ITS Impressions Chest X-Ray 06/14/25 10:11 IMPRESSION: 1. Probably airspace disease peripheral to chronic discoid atelectasis right upper lobe. ECG Data EKG #1: ECG completion date: 06/14/25 ECG completion time: 09:05 EKG Interpretation: normal rate (71), sinus rhythm, normal QRS, normal QT and left axis Discharge Plan Discharge Clinical Impression: Pneumonia Patient Disposition: Home Condition: Stable Instructions: Pneumonia (ED) Additional Instructions: Please return to the emergency department if you develop severe and persistent chest pain, difficulty breathing, dizziness, leg swelling or if you are coughing up blood as these can be signs of a medical emergency. Please call your doctor for a follow up appointment to determine the need for further testing. Patient Language: [place] Citizen Prescriptions: New doxycycline hyclate 100 mg tablet 100 mg PO BID Qty: 10 0RF amoxicillin-pot clavulanate 875-125 mg tablet 1 tablet PO Q12H Qty: 10 0RF No Action trazodone 50 mg tablet 50 mg PO QHS omeprazole 20 mg capsule,delayed release(DR/EC) 20 mg PO DAILY montelukast 10 mg tablet 10 mg PO QHS ipratropium bromide 21 mcg (0.03 %) spray,non-aerosol 2 spray INTRANASAL BID memantine 10 mg tablet 10 mg PO DAILY loratadine 10 mg tablet 10 mg PO DAILY azelastine 137 mcg (0.1 %) spray,non-aerosol 2 spray INTRANASAL DAILY cephalexin 500 mg capsule 500 mg PO Q12H 7 Days Qty: 14 0RF cefdinir 300 mg capsule 300 mg PO Q12H Qty: 14 0RF azithromycin 250 mg tablet See Rx Instructions .ROUTE .COMPLEX Qty: 6 0RF Rx Instructions: For 250 mg dose pack: take 500 mg today (day 1), then 250 mg for 4 days (days 2-5) doxycycline hyclate 100 mg tablet 100 mg PO Q12H Qty: 9 0RF amoxicillin 875 mg tablet 875 mg PO Q12H Qty: 9 0RF benzonatate 100 mg capsule 100 mg PO BID PRN (Reason: cough) Qty: 20 0RF albuterol sulfate 90 mcg/actuation HFA aerosol inhaler 1 inh inhalation QID PRN (Reason: shortness of breath or wheezing) Qty: 6.7 0RF azithromycin 500 mg tablet 500 mg PO DAILY 4 Days Qty: 4 0RF Rx Instructions: start 03/19 (received 1st dose in the emergency department 03/18/2025) Follow-up/Referrals: Hilda,Alyssa Gonsalez, MELODY [Primary Care Provider, Family Practice] - 1 Week
[2025-06-14 09:22] LABS: Hematocrit 36.4 % (37.0-47.0); Hemoglobin 11.2 g/dL (12.0-15.0); Immature Granulocyte Percent A 0.5 % (0-0.5); Lymphocytes Absolute Auto 1.22 K/mm3 (0.9-3.2); Mean Corpuscular HGB Conc 30.8 g/dl (32-36); Mean Corpuscular Hemoglobin 26.2 pg (26-34); Mean Corpuscular Volume 85.0 fl (80-100); Nucleated Red Blood Cells Absolute Auto 0.000 K/mm3 (0.0-0.012); Nucleated Red Blood Cells Perc 0.0 % (0.0-0.2); Platelet Count Result 260 k/mm3 (150-375); Red Blood Count 4.28 M/mm3 (4.2-5.4); White Blood Count 10.5 K/mm3 (4.5-10.0)
[2025-06-14] MEDS: ASPIRIN 81 MG CHEWABLE TABLET 324 MG PO (09:23)
[2025-06-14 09:24] VITALS: BP 152/58; PULSE 75; RESP 21; O2SAT 97
[2025-06-14 09:25] VITALS: O2SAT 97
--- OUTSIDE RECORDS SUMMARY | 2025-06-14 09:31 | XMS_ITS | Clinical Summary ---
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 Gender Identity Not on file Sexual Orientation Not on file Last Filed Vital Signs Vital Sign Reading Time Taken Comments Blood Pressure 122/60 05/13/2018 9:18 AM CDT Pulse 74 05/13/2018 9:18 AM CDT Temperature 36.7 C (98 F) 05/13/2018 9:18 AM CDT Respiratory Rate 18 10/22/2017 9:13 AM TOWER LOADER OPERATOR Oxygen Saturation 97% 05/13/2018 9:18 AM CDT Inhaled Oxygen Concentration - - Weight 57.6 kg (127 lb) 05/13/2018 9:18 AM CDT Height 157.5 cm (5' 2) 04/15/2018 8:14 AM CDT Body Mass Index 23.23 04/15/2018 8:14 AM CDT Plan of Treatment Health Maintenance Due Date Last Done Comments Hepatitis C Virus (HCV) Screening 1940 TdaP Immunization 1940 Zoster Immunization (1 of 2) 1990 Respiratory Syncytial Virus (RSV) Immunization (Adult) (1 - 1-dose 75+ series) 2015 Influenza Immunization (#1) 05/29/202505/29, 07/15/2016, 07/12/2015, Additional history exists SARS-COV-2 Immunization ( season) 2025 Pneumococcal Immunization (50+ years) Completed 08/04/2016, 07/26/2015, 09/09/2014 Pneumococcal Immunization Combined Discontinued 08/04/2016, 07/26/2015, 09/09/2014 Hepatitis B Immunization Aged Out No longer eligible based on patient's age to complete this topic Human Papillomavirus (HPV) Immunization Aged Out No longer eligible based on patient's age to complete this topic Meningococcal Immunization (ACWY) Aged Out No longer eligible based on patient's age to complete this topic Rotavirus Immunization Aged Out No lo nger eligible based on patient's age to complete this topic Insurance 2017 [place] [id number] MEDICARE C ESSENCE Care Teams Switchgear Repairer Relationship Specialty [place] [address] [place] [address] PCP - General Internal Medicine 10/22/17
--- OUTSIDE RECORDS SUMMARY | 2025-06-14 09:31 | XMS_ITS | Clinical Summary ---
Author Organization [facility] Address [address] [place] [address] Care Team Providers Care Supply Chain Analyst Name Role Phone Unavailable Primary Care Provider Unavailabl e Source Comments [facility],non-owned Affiliates and Associated Physician Practices is amultiple site organization consisting of ambulatory clinics and hospital sitesin [place], [place], [place] and [place]. This disclosure is being madepursuant to the Care Everywhere program and may not contain all information available regarding this patient. 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 Gender Identity Not on file Sexual Orientation Not on file Plan of Treatment Health Maintenance Due Date Last Done Comments BONE DENSITY TESTING 1940 DTAP/TDAP/TD VACCINES (1 - Tdap) 1959 PNEUMOCOCCAL VACCINE 50+ (1 of 1 - PCV) 1990 ZOSTER VACCINE (1 of 2) 1990 Respiratory Syncytial Virus (RSV) Vaccine Pt: or over 60 yrs (1 - 1-dose 75+ series) 2015 DEPRESSION SCREENING 09/28/2024 COVID-19 VACCINE ( - 2023-2 5 season) 2025 INFLUENZA VACCINE (#1) 2025 HEPATITIS B VACCINE Aged Out No longe r eligible based on patient's age to complete this topic HIB VACCINE Aged Out No longer eligi ble based on patient's age to complete this topic HPV VACCINE Aged Out No longer eligi ble based on patient's age to complete this topic MENINGOCOCCAL (Group B) VACC INE SHARED DECISION-MAKING Aged Out No longer eligibl e based on patient's age to complete this topic MENINGOCOCCAL GROUPS A/C/Y/W VACCINE Aged Out No longer eligible b ased on patient's age to complete this topic
[2025-06-14 09:34] LABS: INR 1.0; Prothrombin Time 13.6 Seconds (11.1-14.7)
[2025-06-14 09:35] LABS: Partial Thromboplastin Time 28.1 Seconds (22.3-36.8)
[2025-06-14 09:38] LABS: Alanine Aminotransferase 11 U/L (6-35); Albumin Level 3.9 g/dL (3.5-5.1); Alkaline Phosphatase 69 U/L (38-126); Anion Gap 8 mmol/L (4-12); Aspartate Amino Transferase 23 U/L (14-36); Bilirubin,Total 0.6 mg/dL (0.2-1.3); Blood Urea Nitrogen 21 mg/dL (7-17); Calcium 9.0 mg/dL (8.4-10.2); Carbon Dioxide 26 mmol/L (22-30); Chloride 103 mmol/L (98-107); Estimated CRCL calculation 32 ml/min; Estimated Glomerular Filt Rate 57; Glucose 126 mg/dL (65-110); Lipase 41 U/L (23-300); Potassium 3.8 mmol/L (3.4-5.0); Sodium 137 mmol/L (137-145); Total Protein 6.8 g/dL (6.3-8.2)
[2025-06-14 09:46] LABS: Troponin I < 0.012 ng/mL (0.000-0.034)
[2025-06-14 10:33] VITALS: BP 148/70; PULSE 68; RESP 17; O2SAT 97
[2025-06-14 11:09] VITALS: BP 148/70; PULSE 64; RESP 17; O2SAT 97
--- OUTSIDE RECORDS SUMMARY | 2025-06-14 11:20 | XMS_ITS | Clinical Summary ---
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 Gender Identity Not on file Sexual Orientation Not on file Last Filed Vital Signs Vital Sign Reading Time Taken Comments Blood Pressure 122/60 05/13/2018 9:18 AM CDT Pulse 74 05/13/2018 9:18 AM CDT Temperature 36.7 C (98 F) 05/13/2018 9:18 AM CDT Respiratory Rate 18 10/22/2017 9:13 AM COMMERCIAL REAL ESTATE ASSISTANT Oxygen Saturation 97% 05/13/2018 9:18 AM CDT [...] age to complete this topic Insurance 2017 [place] [id number] MEDICARE C ESSENCE Care Teams Respiratory Care Assistant Relationship Specialty [place] [address] [place] [address] PCP - General Internal Medicine 10/22/17
--- OUTSIDE RECORDS SUMMARY | 2025-06-14 11:20 | XMS_ITS | Clinical Summary ---
Author Organization [facility] Address [address] [place] [address] Care Team Providers Care Design Technician Name Role Phone Unavailable Primary Care Provider Unavailabl e Source Comments [facility],non-owned Affiliates and Associated Physician Practices is amultiple site organization consisting of ambulatory clinics and hospital sitesin [place], [place], [place] and [place]. This disclosure is being madepursuant to the Care Everywhere program and may not contain all information available regarding this patient. 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
== END 2025-06-14 11:13 | disposition home or self-care (01) ==
PROVIDERS: Emergency Provider Emergency Medicine; PCP Nurse Practitioner Family
DX: J18.9 Pneumonia, unspecified organism (principal); I25.2 Old myocardial infarction; G30.9 Alzheimer's disease, unspecified; F02.80 Dementia in other diseases classified elsewhere, unspecified severity, without behavioral disturbance, psychotic disturbance, mood disturbance, and anxiety; K21.9 Gastro-esophageal reflux disease without esophagitis; M81.0 Age-related osteoporosis without current pathological fracture; Z98.84 Bariatric surgery status; Z87.01 Personal history of pneumonia (recurrent); Z87.891 Personal history of nicotine dependence; Z96.1 Presence of intraocular lens; Z98.42 Cataract extraction status, left eye; Z98.41 Cataract extraction status, right eye; Z90.710 Acquired absence of both cervix and uterus; Z90.722 Acquired absence of ovaries, bilateral; Z90.79 Acquired absence of other genital organ(s); Z90.49 Acquired absence of other specified parts of digestive tract; I44.4 Left anterior fascicular block; Z79.899 Other long term (current) drug therapy
CPT/HCPCS: 36415; 71046; 80053; 83690; 84484; 85025; 85610; 85730; 93005; 99284; A9270